=== PATIENT | male | born 1975 | race Caucasian/White ===

== ENCOUNTER 2023-05-14 07:51 | Outpatient (OUT) | payer OTHER, SELFPAY ==
--- NOTE | 2023-05-14 08:29 | PM.CN ---
Consult Note: HPI Data of Consult Patient: known to practice within the last 3 years Consult date: 05/14/23 Requesting Physician: FLORENCE WATKNIS NP Primary Care Provider: Shaikh Symone MD Consult Narrative Reason for consult: back pain Narrative: Patient is here for a f/u for chronic mid back pain. Pain is right thoracic area with no radiation, with muscle spasm. We discussed using heat and massage to area for comfort. Also discussed trying tumeric OTC. X-rays were ordered at last visit. Patient states he has not completed these d/t financial issues. He denies adverse SE of medications. No new sensorimotor sx or bowel or bladder issues. Denies any new injury. He stopped taking mobic for a month when rx wore out. We discussed indications for mobic and he would like refill. Medication therapy assists with patient being able to perform ADLs. cc:: CC: FLORENCE WATKINS NP Review of Systems ROS Status of ROS 10 or more systems reviewed and unremarkable except as noted in history and below Musculoskeletal Reports: back pain Exam Constitutional Common normals: no apparent distress, average body habitus, oriented x3, no limitations, healthy appearing, alert and well nourished General appearance: cooperative, comfortable and well developed Orientation/consciousness: Yes awake, Yes oriented to person, Yes oriented to place and Yes oriented to time HENMT Common normals: normocephalic and moist oral mucous membranes Respiratory Common normals: normal respiratory effort, no retractions and no use of accessory muscles Effort & inspection: able to speak in complete sentences and symmetric chest movement Back & Pelvis Thoracic spine/upper back: normal to inspection, pain with ROM, paraspinal muscle tenderness and paraspinal muscle spasm Other: positive facet loading with pain right thoracic area negative scott, negative SLR muscle strength 5/5 bilat LE with intact sensation Assessment and Plan Assessment and Plan (1) Lumbar spondylosis: (2) Spondylolysis, thoracic region: (3) Muscle spasm: Plan tumeric OTC resume mobic heat and massage to area
== END 2023-05-14 07:52 | disposition home or self-care (01) ==
PROVIDERS: PCP Internal Medicine; Visit Provider Nurse Practitioner
DX: M47.816 Spondylosis without myelopathy or radiculopathy, lumbar region (principal); M47.814 Spondylosis without myelopathy or radiculopathy, thoracic region; M62.838 Other muscle spasm
CPT/HCPCS: G0463

== ENCOUNTER 2023-08-19 07:53 | Outpatient (OUT) | payer OTHER, SELFPAY ==
--- NOTE | 2023-08-19 08:18 | PM.CN ---
Consult Note: HPI Data of Consult Patient: known to practice within the last 3 years Requesting Physician: Emma Albert NP Primary Care Provider: Shaikh Symone MD Consult Narrative Reason for consult: f/u Narrative: Cristi Honeycutt a 47 year old male presents for evaluation and management of chronic back pain. Today rating pain 2/10, reports it gets up to a 10/10 at times. Patient consistently takes his medications and admitted to taking his pain medication up to 4 or 5 times a day vs the prescribed TID. Patient reports pain is well controlled since last visit and he continues to be active with work. cc:: CC: Emma Albert NP Review of Systems ROS Status of ROS 10 or more systems reviewed and unremarkable except as noted in history and below Musculoskeletal Reports: back pain Meds Home Medications and Allergies Home Medications Medication Instructions Recorded Confirmed Type dextroamphetamine-amphetamine 10 10 mg PO DAILY 05/14/23 05/14/23 History mg tablet (Adderall) losartan 100 mg tablet 100 mg PO DAILY 05/14/23 05/14/23 History meloxicam 15 mg tablet 15 mg PO DAILY 05/14/23 05/14/23 History oxycodone-acetaminophen 5 mg-325 1 tab PO TID 05/14/23 05/14/23 History mg tablet (Percocet) tizanidine 4 mg tablet 8 mg PO BEDTIME PRN muscle spasm 05/14/23 05/14/23 History oxycodone-acetaminophen 5 mg-325 1 tab PO TID PRN pain #80 tabs 06/24/23 Rx mg tablet (Percocet) Allergies Allergy/AdvReac Type Severity Reaction Status Date / Time No Known Drug Allergies Allergy Verified 05/14/23 09:27 Exam Constitutional Documenting provider has reviewed patient's vital signs: yes Common normals: no apparent distress, oriented x3, healthy appearing, alert and well nourished General appearance: cooperative HENMT Common normals: normocephalic, hearing grossly normal bilaterally and moist oral mucous membranes Head and scalp: normocephalic Eye Common normals: PERRL Pupil: PERRL Neck & C-Spine Common normals: full ROM General: normal visual inspection Chest Common normals: inspection of chest normal Respiratory Common normals: normal respiratory effort, no retractions and no use of accessory muscles Back & Pelvis Thoracic spine/upper back: ROM limited and pain with ROM Lumbar spine/lower back: ROM limited, pain with ROM and straight leg raise negative bilaterally Sacroiliac joints: SI joints normal Extremity Common normals: normal to inspection and full ROM Neuro Common normals: oriented x3, CN's II-XII intact bilaterally, moves all extremities, no focal motor deficits, no sensory deficits noted, deep tendon reflexes 2+ bilaterally and gait normal Sensorium/orientation: alert Motor exam: strength 5/5 throughout and no movement abnormalities noted Psych Common normals: mental status grossly normal, thought process normal, cooperative, affect normal, speech normal and activity/motor behavior normal Speech: normal speech Thought process: normal thought process Results Additional Findings Additional findings: I have checked an [place] report on this patient today and there are no aberrancies noted in the prescribing history.?? A drug screen was completed and reviewed within the last year, and if there has not been a drug screen completed we ordered one today to monitor higher risk, state monitored pain medication use. As part of providing excellent, safe, comprehensive care, the following was completed at our patient's visit: 1. A medication reconciliation and review to ensure accurate knowledge of current/active medications, including asking our patients to inform us about any [id number] medications or herbal remedies/nutritional supplements/alternative remedies. 2. A review to specifically ensure our patients have had annual screening for: elevated body mass index (BMI), tobacco use, screening for depression, and screening for unhealthy alcohol use. When screening is concerning, patients are provided with education and the specific recommendation to discuss the concerning health issue and treatment options with their primary care provider. Assessment and Plan Assessment and Plan (1) Lumbar spondylosis: (2) Spondylolysis, thoracic region: (3) Muscle spasm: (4) Chronic, continuous use of opioids: Assessment and Plan: I have refilled the patient's opioid prescriptions at the above noted dose and schedule.? I feel these medications are improving the patient's quality of life and allow them to tolerate activities of daily living as well as participate in recreational activity.? The patient does not report intolerable side effects. The patient is NOT opioid naive and non-pharmacologic and non-opioid treatment has failed to significantly relieve the patient's pain and improve functionality. The patient has a diagnosis that is related to a somatic or visceral pain etiology. ? ?? I reviewed with the patient the potential risks and side effects with the use of? opioid medications including but not limited to respiratory depression,? sedation, and even . I verified the patient has access to naloxone should? these effects occur. I advised the patient to avoid the use of any other? sedation substances including alcohol, THC, and benzodiazepines while? taking opioid medications due to the risk of compounding side effects and? detrimental outcomes. I reviewed the [employer], pain treatment agreement, urine? drug screen, and opioid start talking forms. The patient was advised to let? their family know they had Naloxone in case they would need to administer? the medication.? ?? A drug screen was completed within the last year, and no aberrancies were noted regarding their use of controlled substances. The patient understands they are subject to the terms and conditions of the pain contract that they have signed. ? ?? I have checked an [place] report on this patient today and there are no aberrancies noted in the prescribing history.? Plan continue conservative care continue HEP cannot afford PT, xrays, or injection therapy doing well on current medication regimen without side effects educated on narcan and prescribed educated on max daily dose of percocet is TID, not to be used more than TID f/u 3 months
== END 2023-08-19 07:54 | disposition home or self-care (01) ==
PROVIDERS: PCP Internal Medicine; Visit Provider Nurse Practitioner
DX: M47.816 Spondylosis without myelopathy or radiculopathy, lumbar region (principal); M43.04 Spondylolysis, thoracic region; M62.838 Other muscle spasm; Z79.891 Long term (current) use of opiate analgesic
CPT/HCPCS: G0463

== ENCOUNTER 2023-11-18 08:27 | Outpatient (OUT) | payer OTHER, SELFPAY ==
--- OUTSIDE RECORDS SUMMARY | 2023-11-18 08:29 | XMS_ITS | CCD ---
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 Name Role Phone PHYSICIAN, DEFAULT Unavailable Unavailable PHYSICIAN, DEFAULT Unavailable Unavailable EDEN SOLORIO Unavailable Unavailable EDEN SOLORIO Unavailable Unavailable SELF, REFERRED Unavailable Unavailable SELF, REFERRED Unavailable Unavailable CT Unavailable Unavailable EDEN SOLORIO Unavailable Unavailable CT Unavailable Unavailable JENNY COLUNGA Unavailable Unavailable FAWWAD, HAZEL H Primary Care Unavailable FAWWAD, HAZEL H Consulting Unavailable FAWWAD, HAZEL H Attending Unavailable FAWWAD, HAZEL H Admitting Unavailable LAKSHMIPATHY ., JORIATH Attending Sharron vailable LAKSHMIPATHY ., NARENDDARBYATH Admitting Sharron vailable FAWWAD, HAZEL H Primary Care Unavailable LAKSHMIPATHY ., NARENDSASHA Consulting Sharron vailable STEINER ., DR ROSAS Pinto Admitting Unavailable FAWWAD, HAZEL H Primary Care Unavailable MOLINA ., STAR Consulting Unavailable STEINER ., DR ROSAS Pinto Attending Unavailable STEINER ., DR ROSAS Pinto Admitting Unavailable FAWWAD, HAZEL H Primary Care Unavailable MOLINA ., STAR Consulting Unavailable STEINER ., DR ROSAS Pinto Attending Unavailable FAWWAD, HAZEL H Primary Care Unavailable STEINER ., DR ROSAS Pinto Admitting Unavailable MOLINA ., STAR Consulting Unavailable STEINER ., DR ROSAS Pinto Attending Unavailable Problems Active Problems Problem Classification Problem Date Documented Date Episodic/Chronic Essential hypertension (5 sources) Essential (primary) hypertension; Translations: [ESSENTIAL (PRIMARY) HYPERTENSION] Onset: 07-01-2018 Chronic Other nervous system disorders (4 sources) Other chronic pain; Translations: [OTHER CHRONIC PAIN] Onset: 01-22-2023 Chronic Other nervous system disorders (4 sources) Polyneuropathy, unspecified; Translations: [POLYNEUROPATHY UNSPECIFIED] Onset: 04-03-2022 Chronic Residual codes; unclassified (1 source) Sleep apnea, unspecified; Translations: [SLEEP APNEA, UNSPECIFIED] Onset: 07-01-2018 Spondylosis; intervertebral disc disorders; other back problems (7 sources) Other intervertebral disc degeneration, lumbar region; Translations: [Spondylosis without myelopathy or radiculopathy, lumbar region] Onset: 07-16-2022 Chronic Substance-related disorders (1 source) Nicotine dependence, cigarettes, uncomplicated; Translations: [NICOTINE DEPENDENCE, CIGARETTES, UNCOMPLICATED] Onset: 07-01-2018 Chronic Unclassified (2 sources) Unknown / UNK(Unknown) Onset: 07-01-2018 Unclassified (4 sources) LOW BACK PAIN, UNSPECIFIED; Translations: [LOW BACK PAIN, UNSPECIFIED] Onset: 10-30-2022 Past or Other Problems Problem Classification Problem Date Documented Da te Episodic/Chronic Gastrointestinal hemorrhage (3 sources) Hemorrhage of anus and rectum; Translations: [HEMORRHAGE OF ANUS AND RECTUM] Onset: 07-01-2018 Episodic Hemorrhoids (2 sources) Other hemorrhoids; Translations: [Residual hemorrhoidal skin tags] Onset: 07-01-2018 Episodic Other screening for suspected conditions (not mental disorders or infectious disease) (2 sources) Encounter for screening for diabetes mellitus; Translations: [Encounter for screening for lipoid disorders] Onset: 02-24-2022 Episodic Spondylosis; intervertebral disc disorders; other back problems (1 source) Intervertebral disc disorders with radiculopathy, lumbar region; Translations: [IV DISC D/O W/RADICULOPATHY LUMB] Onset: 07-18-2022 Episodic Unclassified (1 source) LOW BACK PAIN, UNSPECIFIED; Translations: [LOW BACK PAIN, UNSPECIFIED] Onset: 10-24-2022 Results Test Name Value Interpretation Reference Range Facility CBC AUTO DIFFon 02-20-2022 BASO # 0.0 103/ul Normal 0.0-0.1 [facility] Comment on above: Performed By: #### C BC #### [facility] [address] [address] [address] Angel Harding Basophils/100 WBC (Bld) 0.7 % Normal 0.2-2.0 [facility] Comment on above: Performed By: #### C BC #### [facility] [address] [place] [address] Dr. Angel Harding EO # 0.2 103/ul Normal 0.0-0.7 [facility] Comment on above: Performed By: #### C BC #### [facility] [address] [place] [address] Dr. Angel Harding Eosinophils/100 WBC (Bld) 2.6 % Normal 0.9-7.0 [facility] Comment on above: Performed By: #### C BC #### [facility] [address] [place] [address] Dr. Angel Harding Erythrocyte distribution width (RBC) [Ratio] 12.4 % Normal 11.0-15.0 [facility] Comment on above: Performed By: #### C BC #### [facility] [address] [place] [address] Dr. Angel Harding Hematocrit (Bld) [Volume fraction] 42.2 % Normal 42.0-54.0 [facility] Comment on above: Performed By: #### C BC #### [facility] [address] [place] [address] Dr. Angel Harding Hemoglobin (Bld) [Mass/Vol] 14.1 g/dL Normal 14.0-18.0 [facility] Comment on above: Performed By: #### C BC #### [facility] [address] [place] [address] Dr. Angel Harding IG # 0.02 10e3/ul Normal 0.00-0.03 [facility] Comment on above: Performed By: #### C BC #### [facility] [address] [place] [address] Dr. Angel Harding IG % 0.3 % Normal 0.0-0.5 [facility] Comment on above: Performed By: #### C BC #### [facility] [address] [place] [address] Dr. Angel Harding LYMPH # 2.4 103/ul Normal 1.2-3.8 [facility] Comment on above: Performed By: #### C BC #### [facility] [address] [place] [address] Dr. Angel Harding Lymphocytes/100 WBC (Bld) 39.4 % Normal 20.5-60.0 [facility] Comment on above: Performed By: #### C BC #### [facility] [address] [place] [address] Dr. Angel Harding MANUAL DIFF REQ NO Normal [facility] Comment on above: Performed By: #### C BC #### [facility] [address] [place] [address] Dr. Angel Harding MCH (RBC) [Entitic mass] 31.4 pg Normal 25.9-34.0 [facility] Comment on above: Performed By: #### C BC #### [facility] [address] [place] [address] Dr. Angel Harding MCHC (RBC) [Mass/Vol] 33.4 g/dL Normal 29.9-35.2 [facility] Comment on above: Performed By: #### C BC #### [facility] [address] [place] [address] Dr. Angel Harding MCV (RBC) [Entitic vol] 94.0 fL Normal 80.0-94.0 [facility] Comment on above: Performed By: #### C BC #### [facility] [address] [place] [address] Dr. Angel Harding MONO # 0.5 103/ul Normal 0.3-0.8 [facility] Comment on above: Performed By: #### C BC #### [facility] [address] [place] [address] Dr. Angel Harding Monocytes/100 WBC (Bld) 7.5 % Normal 1.7-12.0 [facility] Comment on above: Performed By: #### C BC #### [facility] [address] [place] [address] Dr. Angel Harding NEUT # 3.0 103/ul Normal 1.4-6.5 [facility] Comment on above: Performed By: #### C BC #### [facility] [address] [place] [address] Dr. Angel Harding Neutrophils/100 WBC (Bld) 49.5 % Normal 43.0-75.0 [facility] Comment on above: Performed By: #### C BC #### [facility] [address] [place] [address] Dr. Angel Harding Platelet mean volume (Bld) [Entitic vol] 9.7 fL Normal 9.5-13.5 [facility] Comment on above: Performed By: #### C BC #### [facility] [address] [address] [address] Angel Harding PLT 275 103/ul Normal 150-450 [facility] Comment on above: Performed By: #### C BC #### [facility] [address] [place] [address] Dr. Angel Harding RBC 4.49 106/ul Critically low 4.70-6.10 [facility] Comment on above: Performed By: #### C BC #### [facility] [address] [place] [address] Dr. Angel Harding WBC 6.1 103/ul Normal 4.0-11.0 [facility] Comment on above: Performed By: #### C BC #### [facility] [address] [place] [address] Dr. Angel Harding GLYCOHEMOGLOBIN A1Con 2021 ADA RECOMMENDATION SEE BELOW Normal [facility] Comment on above: Result Comment: ADA RECOMMENDED LIMIT 4.0 - 6.0 ADA THERAPEUTIC TARGET < 7.0 ACTION SUGGESTED > 7.0 Performed By: #### A 1C #### [facility] [address] [place] [address] Dr. Angel Harding Glucose [Mass/Vol] 117 mg/dL Normal [facility] Comment on above: Performed By: #### A 1C #### [facility] [address] [place] [address] Dr. Angel Harding HbA1c (Bld) [Mass fraction] 5.7 % Normal 4.5-6.2 [facility] Comment on above: Performed By: #### A 1C #### [facility] [address] [place] [address] Dr. Angel Harding LIPID PROFILEon 02-20-2022 CHOL-HDL RATIO NORM SEE BELOW Normal [facility] Comment on above: Result Comment: 3.3 - 4.4 LOW RISK 4.4 - 7.1 AVERAGE RISK 7.1 - 11.0 MODERATE RISK >11.0 HIGH RISK Performed By: #### C MP, LIPID #### [facility] [address] [address] [address] Angel Harding Cholesterol [Mass/Vol] 217 mg/dL Critically high <=200 [facility] Comment on above: Performed By: #### C MP, LIPID #### [facility] [address] [address] [address] Angel Harding Cholesterol in HDL [Mass/Vol] 47 mg/dL Normal 40-60 [facility] Comment on above: Performed By: #### C MP, LIPID #### [facility] [address] [address] [address] Angel Harding Cholesterol in LDL [Mass/Vol] 125.2 mg/dL Normal [facility] Comment on above: Performed By: #### C MP, LIPID #### [facility] [address] [address] [address] Angel Harding Cholesterol.total/Ch olesterol in HDL [Mass ratio] 4.6 {ratio} Normal [facility] Comment on above: Performed By: #### C MP, LIPID #### [facility] [address] [address] [address] Angel Harding HDL NORMAL > or = 60 mg/dl - LO W CARDIOVASCULAR RISK <40 mg/dl - HIGH CARDIOVASCULAR RISK Normal [facility] Comment on above: Performed By: #### C MP, LIPID #### [facility] [address] [address] [address] Angel Harding LDL CALC NORMAL SEE BELOW Normal [facility] Comment on above: Result Comment: <100 mg/dl OPTIMAL 100 - 129 mg/dl NEAR OR ABOVE OPTIMAL 130 - 159 mg/dl BORDERLINE HIGH 160 - 189 mg/dl HIGH >190 mg/dl VERY HIGH Performed By: #### C MP, LIPID #### [facility] [address] [place] [address] Dr. Angel Harding Triglyceride [Mass/Vol] 224 mg/dL Critically high <=150 [facility] Comment on above: Performed By: #### C MP, LIPID #### [facility] [address] [place] [address] Dr. Angel Harding VLDL CALC 44.8 mg/dL Normal [facility] Comment on above: Performed By: #### C MP, LIPID #### [facility] [address] [place] [address] Dr. Angel Harding PROF 14(COMP METB)on 022 Albumin [Mass/Vol] 3.8 g/dL Normal 3.4-5.0 [facility] Comment on above: Performed By: #### C MP, LIPID #### [facility] [address] [place] [address] Dr. Angel Harding Albumin/Globulin [Mass ratio] 1.0 {ratio} Normal [facility] Comment on above: Performed By: #### C MP, LIPID #### [facility] [address] [place] [address] Dr. Angel Harding ALP [Catalytic activity/Vol] 91 U/L Normal 46-116 [facility] Comment on above: Performed By: #### C MP, LIPID #### [facility] [address] [place] [address] Dr. Angel Harding ALT [Catalytic activity/Vol] 66 U/L Critically high 16-63 [facility] Comment on above: Performed By: #### C MP, LIPID #### [facility] [address] [place] [address] Dr. Angel Harding Anion gap [Moles/Vol] 13.0 mmol/L Normal [facility] Comment on above: Performed By: #### C MP, LIPID #### [facility] [address] [place] [address] Dr. Angel Harding AST [Catalytic activity/Vol] 29 U/L Normal 15-37 [facility] Comment on above: Performed By: #### C MP, LIPID #### [facility] [address] [place], [place] [id number] Dr. Angel Harding Bilirubin [Mass/Vol] 0.3 mg/dL Normal 0.2-1.0 [facility] Comment on above: Performed By: #### C MP, LIPID #### [facility] [address] [place] [address] Dr. Angel Harding Calcium [Mass/Vol] 8.6 mg/dL Normal 8.5-10.1 [facility] Comment on above: Performed By: #### C MP, LIPID #### [facility] [address] [place] [address] Dr. Angel Harding Chloride [Moles/Vol] 106 mmol/L Normal 98-107 [facility] Comment on above: Performed By: #### C MP, LIPID #### [facility] [address] [place] [address] Dr. Angel Harding CO2 [Moles/Vol] 25.7 mmol/L Normal 21.0-32.0 [facility] Comment on above: Performed By: #### C MP, LIPID #### [facility] [address] [place] [address] Dr. Angel Harding Creatinine [Mass/Vol] 0.83 mg/dL Normal 0.70-1.30 [facility] Comment on above: Performed By: #### C MP, LIPID #### [facility] [address] [place] [address] Dr. Angel Harding EGFR-AF GRENADIAN >60 Normal >=60 [facility] Comment on above: Performed By: #### C MP, LIPID #### [facility] [address] [place] [address] Dr. Angel Harding EGFR-NON AF GRENADIAN >60 Normal >=60 [facility] Comment on above: Performed By: #### C MP, LIPID #### [facility] [address] [place] [address] Dr. Angel Harding Globulin (S) [Mass/Vol] 3.7 g/dL Normal [facility] Comment on above: Performed By: #### C MP, LIPID #### [facility] [address] [place] [address] Dr. Angel Harding Glucose [Mass/Vol] 114 mg/dL Critically high 74-106 [facility] Comment on above: Performed By: #### C MP, LIPID #### [facility] [address] [address] [address] Angel Harding Potassium [Moles/Vol] 4.7 mmol/L Normal 3.5-5.1 [facility] Comment on above: Performed By: #### C MP, LIPID #### [facility] [address] [address] [address] Angel Harding Protein [Mass/Vol] 7.5 g/dL Normal 6.1-8.2 [facility] Comment on above: Performed By: #### C MP, LIPID #### [facility] [address] [place] [address] Dr. Angel Harding Sodium [Moles/Vol] 140 mmol/L Normal 136-145 [facility] Comment on above: Performed By: #### C MP, LIPID #### [facility] [address] [address] [address] Angel Harding Urea nitrogen [Mass/Vol] 12.0 mg/dL Normal 7.0-18.0 [facility] Comment on above: Performed By: #### C MP, LIPID #### [facility] [address] [place] [address] Dr. Angel Harding Urea nitrogen/Creatinine [Mass ratio] 14.5 mg/mg Normal [facility] Comment on above: Performed By: #### C MP, LIPID #### [facility] [address] [place] [address] Dr. Angel Harding Operative Reporton 8 Operative Report MR#: [id number] [facility] Pt. Name: Cristi [facility] #: [id number] Discharge Date: Birthdate: 1975 OPERATIVE REPORTDATE OF SURGERY: 07/01/2018SURGEON: DEJUAN ArtisREOPERATIVE DIAGNOSIS: Rectal bleeding.POSTOPERATIVE DIAGNOSIS: Right posterior mixed internal and externalhemorrhoids.CT OCEDURES:1. Excision of mixed right posterior internal and external hemorrhoids.2. Exparel was used to do a perianal block.ANESTHESIA: MAC.COMPLICATIONS: None.INDICATION FOR PROCEDURE: This is a 42-year-old male presented [facility] with rectal pain and bleeding. Decision was made to bring him tothe operating room for exam under anesthesia.DESCRIPTION OF PROCEDURE: Preoperatively, consent was obtained. Thepatient was brought to the operating room, placed in prone ernestine-knifeposition. MAC anesthesia was induced. On induction of anesthesia and examunder anesthesia, the patient noted to have a right posterior externalhemorrhoid that had some abnormal tissue at the dentate line. Decision wasmade to excise both the internal and external component. Exparel was usedto do a perianal block. The right posterior hemorrhoidal internal externalcomponent was grasped with a Sonam device. A 2-0 chromic was then used toligate the pedicle. The electrocautery LigaSure device was used to removethe hemorrhoid and the chromic was used to run and close the mucosa in alocking fashion. The patient tolerated the procedure well. An Exparelperianal block was done at the end. The patient was taken topostanesthesia care unit in stable condition.Electronical ly Signed by:Eden Solorio MD 07/01/2018 12:20 P Real Solorio, MDDate Dict: 07/01/2018/09:02 Shannon/Eden Solorio MDDate Trans: 07/01/2018 11:00 [id number] Normal [facility] POC GLUCOSE LABon 07-01-2018 Glucose mass conc 101 mg/dL High 70-[address] [facility] Comment on above: Performed By: #### [id number] ####[facility], [place] [id number] [place] [address] Encounters Encounter Date Encounter Type Care Provider Facility Start: 01-22-2023 End: 01-23-2023 ambulatory CARMELLA RODRIGUEZ . Facility: Start: 10-24-2022 End: 10-25-[address] ROSAS STEINER . Facility: Start: 07-16-2022 End: 07-17-[address] ROSAS STEINER . Facility:[facility] Start: 04-03-2022 End: 04-04-2022 ambulatory SHAIKH Asuncion OLIVEIRA Facility:[facility] Start: 02-20-2022 End: 02-21-2022 ambulatory Asuncion ROXANNE Facility: Start: 07-01-2018 End: 07-02-2018 Patient encounter procedure EDEN SOLORIO Facility:[facility] Start: 06-08-2018 End: 06-09-2018 Patient encounter procedure DEFAULT PHYSICIAN Facility:[facility] Procedures Date Procedure Procedure Detail Performing Clinician Start: 07-01-2018 ANESTH ANORECTAL SURGERY JENNY COLUNGA Start: 07-01-2018 REMOVE BY LIGAT INT HEM GRP EDEN SOLORIO Payers Date Payer Category Payer Unknown [id number] [id number] 1975 Unknown [id number] [id number] 1975 Unknown [id number] 2.16.84 [id number] 1975 Unknown [id number] 2.16.84 [id number] 1975 Unknown [id number] 2.16.84 [id number] 1975 Unknown [id number] 2.16.84 [id number] 1975 Unknown [id number] 2.16.84 [id number] 1958 Unknown [id number] Unknown Consultation note 01-22-2023 Note Date & Type Note Facility 01-22-2023 Note CONSULTATION CONSULTATION DATE: 01/22/2023 TO: Dr. Oliveira CHIEF COMPLAINT: Includes lower back pain occurring bilaterally. HISTORY: He rates this 5-7/10 pain, sharp in character, increased with activities such standing, walking and performing transitioning maneuvers. He feels most comfortable in a semi-recumbent position. Denies any change in bowel and bladder habits or new sensorimotor changes in the lower extremities. MEDICATIONS: Current medications include Percocet 5 mg t.i.d., Mobic 15 mg daily p.r.n., tizanidine 4 mg daily which he uses frequently, stating that it makes him somewhat sleeping, and he uses maybe twice a month. EXAM: Notable for patient being inconsistent when performing various maneuvers in terms of location of his pain symptoms on provocative testing. For example, when performing lumbar facet joint loading maneuvers, his area of pain seemed to migrate. Similarly, when performing Adrián's test and FABERs sign, areas of pain would migrate from one location to another location, making for a very inconsistent response to our examination. Nevertheless, I could not appreciate any radiculopathy or myelopathy involving his lower extremities on today's visit. I could not appreciate any myofascial spasm involving his lumbar spine on today's visit. He did appear to have some pain with lumbar facet loading maneuvers occurring bilaterally. Again, the location of his pain did seem to migrate. IMPRESSION: The patient has chronic pain, unclear etiology, possibly related to lumbosacral spondylosis. RECOMMENDATIONS: I have recommended lumbosacral spine films, PA and lateral views. Will obtain a urine toxicology screen, and will have him return to the office in approximately four weeks' time or sooner if needed. There was significant strain between myself and the patient during the examination process. We will discuss this with the team, to determine if we will continue to see this patient secondary to the strained patient/physician relationship. [facility] Consultation note 10-24-2022 Note Date & Type Note Facility 10-24-2022 Note CONSULTATION CONSULTATION DATE: 10/24/2022 HISTORY OF PRESENT ILLNESS: This is a 46-year-old male. 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 Historically, the patient has declined procedures that have been offered and prefers to be medically maintained. His medications include Mobic 15 mg daily, Percocet 5/325 t.i.d., tizanidine 4 mg p.r.n. and Adderall. 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 His chronic pain does not interfere with ADLs, as long as he is compliant with his medications. 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 This morning, he states his pain is 8/10, although he is sitting calmly in the room. He describes the pain as sharp intermittently with dull aches. He denies any new pain pattern or vasomotor changes. Patient's REVIEW OF SYSTEMS / PAST MEDICAL HISTORY / ALLERGIES and IMAGES have been reviewed and noted in the chart. PHYSICAL EXAM: VITAL SIGNS: Blood pressure 160/84, heart rate is 85. He is 6'6 , weighs 113 kg. GENERAL IMPRESSION: Pleasant, appropriate, in no acute distress. BACK EXAM: Range of motion is functional in lateral rotation and flexion/extension. Paravertebral muscles are non-spasmodic. Mild spinal axial pain upon compression of the lower lumbar facets bilaterally; L3, L4, L5. Kris's point non-tender bilaterally. Negative FABERs and compression test. MUSCULOSKELETAL: Motor is 5/5 bilaterally. No vasomotor weakness noted. NEUROLOGICAL: Radicular sensory is intact. Negative polyneuropathy. DIAGNOSIS: Chronic lower back pain, lumbar degenerative disc disease, lumbar spondylosis. PLAN: Will continue to maintain his medications: Percocet 5/325 t.i.d. and tizanidine 4 mg p.r.n. Patient is well aware of home supportive measures and I encouraged him to continue his vitamins. Will see him in three months' time, unless otherwise indicated. [facility] Consultation note 07-16-2022 Note Date & Type Note Facility 07-16-2022 Note CONSULTATION CONSULTATION DATE: 07/16/2022 HISTORY OF PRESENT ILLNESS: This is a 46-year-old gentleman returning to the clinic for a three month follow up. He was last seen on 04/03/2022 and, at that time, his diclofenac was discontinued due to indigestion. He was started on Mobic 15 mg daily. The patient is tolerating that medication very well and gaining pain relief at the same time. Other medication patient is on is Percocet 5/325 t.i.d., Adderall 7.5 mg daily and tizanidine 8 mg p.r.n. The patient has had back surgery in the past and remains very hesitant to do any procedural interventions. He feels his morning and activity routine, including his medications are satisfactory to his pain management right now. He has both thoracic and lumbar pain, but does not describe any precise aggravating factors. He said there is no rhyme or reason for the onset of sharp episodes. At rest, his pain is 4/10. With activity, it is 7/10. He describes the pain as crampy, dull; sharp, shooting pains at times. He denies any new vasomotor weakness or radicular pain pattern. Patient's REVIEW OF SYSTEMS / PAST MEDICAL HISTORY / ALLERGIES and IMAGES have been reviewed and they are noted on the chart. PHYSICAL EXAM: VITAL SIGNS: Blood pressure 160/87, heart rate is 59. Temperature is 97.7. He is 6'6 and weighs 115 kg. GENERAL IMPRESSION: Pleasant, appropriate, no acute distress. FOCUSED EXAM - BACK: Range of motion is functional in lateral rotation and flexion/extension. Paravertebral muscles are supple. Minimal spinal axial pain noted to bilateral L3, L4, L5 to compression. Kris's point is non-tender bilaterally. MUSCULOSKELETAL: Motor is intact, 5/5 bilaterally. No vasomotor weakness noted. Muscle tone is good. Patient walks with a stable gait. NEUROLOGICAL: Patient is cognitively intact. Mild hypoesthesia noted along S1 to left lower extremity along the posterior aspect that does not reach the knee. Radicular sensory is intact. DIAGNOSIS: Lumbar spondylosis, lumbar degenerative disc and thoracic degenerative disc disease and lumbar neuritis. PLAN: We will continue to medically manage the patient only, per the patient's request. A refill for his Percocet 5/325 t.i.d. and Mobic 15 mg daily will be sent to his pharmacy. Education was given regarding vitamin supplements, stretching, heat use and other modalities of self care. We will see the patient in three months' time, unless otherwise indicated. Patient is in agreement to this. [facility] Consultation note 04-03-2022 Note Date & Type Note Facility 04-03-2022 Note CONSULTATION CONSULTATION DATE: 04/03/2022 HISTORY OF PRESENT ILLNESS: This is a 46-year-old gentleman, returned to the clinic for a three month follow up for his chronic lower back pain and bilateral knee pain. He was last seen on 01/02/2022 which, at that time, he was to decrease his tizanidine due to sedentary effects, and he was placed on diclofenac daily. Patient had to stop taking the diclofenac as he was having indigestion problems with that. He reports his pain as a 5-6/10 today, particularly in his mid upper back. 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 He does have patchy hypoesthesia to bilateral upper extremities. Twisting, turning, pulling, lifting and carrying heavy objects aggravate his pain. He does take Percocet 5/325 t.i.d., Advil and tizanidine. The patient says he does not feel his Percocet is keeping up with his pain. Historically, the patient has not moved forward with procedures primarily due to cost. Patient's REVIEW OF SYSTEMS / PAST MEDICAL HISTORY / ALLERGIES and IMAGES have been reviewed and they are noted on the chart. PHYSICAL EXAM: VITAL SIGNS: Blood pressure 158/87, heart rate is 77. Temperature is 97.3. He is 6'6 , weighs 120 kg. FOCUSED EXAM - BACK: Range of motion is within functional limits in lateral rotation and flexion/extension. Reproduction of spinal axial pain noted to direct compression along the thoracic facets of T3, T4 and T5, T6. Bilateral paravertebral muscles are non-spasmodic. Kris's point is non-tender bilaterally. MUSCULOSKELETAL: Muscle tone is good. Patient ambulates without difficulty, with a steady gait. NEUROLOGICALLY: Patchy hypoesthesia noted along C7-C8 to bilateral upper extremities. IMPRESSION: Polyneuropathy, thoracic degenerative disc, lumbar degenerative disc and lumbar spondylosis. PLAN: We will replace the diclofenac with Mobic 15 mg p.o. daily. I did suggest him to highly consider the MBB procedures and subsequent rhizotomy for management of his chronic back pain. His Percocet dose and frequency will be unchanged at this time. I did discuss with him decreasing the amount of alcohol he takes while he takes his narcotic medication. Pamphlets were given with information regarding medial branch blocks and a video for him to watch. We will see him in three months' time unless patient would like to move forward with a procedure. Patient agrees with plan of care and all questions answered. [facility] Signed and Approved by: STAR MOLINA . 04/10/2022 16:02:00 [facility] Summary Purpose Family History No Family History Records FoundNo Family History Records Found Advance Directives No Advanced Directives Records FoundNo Advanced Directives Records Found Additional Source Comments (unrecognized sect ion and content) No Status Records FoundNo Status Records Found INFORMATION SOURCE (unrecogn ized section and content) DATE CREATED AUTHOR 10/21/2018 [facility] DATE CREATED AUTHOR AUTHOR'S ROSEANNA ATION 01/31/2023 [facility] FOR RECORDS PERTAINING TO PATIENTS WHO ARE OR HAVE BEEN ENROLLED IN A CHEMICAL DEPENDENCY/SUBSTANCEABUSE PROGRAM, SOME INFORMATION MAY BE OMITTED. This clinical summary was aggregated from multiple sources. Caution should be exercised in using it in the provision of clinical care. This summary normalizes information from multiple sources, and as a consequence, information in this document may materially change the coding, format and clinical context of patient data. In addition, data may be omitted in some cases. CLINICAL DECISIONS SHOULD BE BASED ON THE PRIMARY CLINICAL RECORDS. [facility] provides no warranty or guarantee of the accuracy or completeness of information in this document.
--- NOTE | 2023-11-18 08:51 | P.CN_ITS ---
Consult Note: HPI Data of Consult Patient: known to practice within the last 3 years Requesting Physician: Emma Albert NP Primary Care Provider: Shaikh Symone MD Consult Narrative Reason for consult: f/u Narrative: Cristi Honeycutt a 47 year old male presents for evaluation and management of chronic back pain. Today rating pain 2/10, reports it gets up to a 10/10 at times. Patient reports pain is well controlled since last visit and he continues to be active with work. Pain radiating to knees with weakness burning numbing and cramping, increased with all activity and long periods of standing. Patient continues to report he cannot afford imaging, PT, injection therapy. Patient finds no improvement with HEP and physical labor at home. Patient continues to report functional improvement and benefit from current medication regimen. Reports percocet use TID PRN but does require TID daily. Denies side effects cc:: CC: Emma Albert NP Review of Systems ROS Status of ROS 10 or more systems reviewed and unremark able except as noted in history and below Musculoskeletal Reports: back pain, neck pain, extremity pain and joint pain Meds Home Medications and Allergies Home Medications Medication Instructions Recorded Confirmed Type dextroamphetamine-amphetamine 10 10 mg PO DAILY 05/14/23 05/14/23 History mg tablet (Adderall) losartan 100 mg tablet 100 mg PO DAILY 05/14/23 05/14/23 History meloxicam 15 mg tablet 15 mg PO DAILY 05/14/23 05/14/23 History oxycodone-acetaminophen 5 mg-325 1 tab PO TID 05/14/23 05/14/23 History mg tablet (Percocet) tizanidine 4 mg tablet 8 mg PO BEDTIME PRN muscle spasm 05/14/23 05/14/23 History oxycodone-acetaminophen 5 mg-325 1 tab PO TID PRN pain #80 tabs 06/24/23 Rx mg tablet (Percocet) naloxone 4 mg/actuation nasal 1 spray intranasal Q3M PRN opioid 08/19/23 Rx spray (Narcan) overdose #2 ea oxycodone-acetaminophen 5 mg-325 1 tab PO TID PRN pain #80 tabs 08/19/23 Rx mg tablet (Percocet) meloxicam 15 mg tablet 15 mg PO DAILY #30 tabs 09/22/23 Rx oxycodone-acetaminophen 5 mg-325 1 tab PO TID PRN pain #80 tabs 09/22/23 Rx mg tablet (Percocet) oxycodone-acetaminophen 5 mg-325 1 tab PO TID PRN pain #80 tabs 10/27/23 Rx mg tablet (Percocet) Allergies Allergy/AdvReac Type Severity Reaction Status Date / Time No Known Drug Allergies Allergy Verified 05/14/23 09:27 Exam Constitutional Documenting provider has reviewed patient's vital signs: yes Common normals: no apparent distress, oriented x3, healthy appearing, alert and well nourished General appearance: cooperative HENMT Common normals: normocephalic, hearing grossly normal bilaterally and moist oral mucous membranes Head and scalp: normocephalic Eye Common normals: PERRL Pupil: PERRL Neck & C-Spine Common normals: full ROM General: normal visual inspection Chest Common normals: inspection of chest normal Respiratory Common normals: normal respiratory effort, no retractions and no use of accessory muscles Back & Pelvis Thoracic spine/upper back: ROM limited and pain with ROM Lumbar spine/lower back: ROM limited, pain with ROM and straight leg raise negative bilaterally Sacroiliac joints: SI joints normal Other: palpable muscle spasms throughout back positive facet loading lumbar spine worse on left than right Extremity Common normals: normal to inspection and full ROM Neuro Common normals: oriented x3, CN's II-XII intact bilaterally, moves all extremities, no focal motor deficits, no sensory deficits noted, deep tendon reflexes 2+ bilaterally and gait normal Sensorium/orientation: alert Motor exam: strength 5/5 throughout and no movement abnormalities noted Psych Common normals: mental status grossly normal, thought process normal, cooperative, affect normal, speech normal and activity/motor behavior normal Speech: normal speech Thought process: normal thought process Results Additional Findings Additional findings: I have checked an [place]AR[place] report on this patient today and there are no aberrancies noted in the prescribing history.?? A drug screen was completed and reviewed within the last year, and if there has not been a drug screen completed we ordered one today to monitor higher risk, state monitored pain medication use. As part of providing excellent, safe, comprehensive care, the following was comp leted at our patient's visit: 1. A medication reconciliation and review to ensure accurate knowledge of current/active medications, including asking our patients to inform us about any [id number] medications or herbal remedies/nutritional supplements/alternative remedies. 2. A review to specifically ensure our patients have had annual screening for: elevated body mass index (BMI), tobacco use, screening for depression, and screening for unhealthy alcohol use. When screening is concerning, patients are provided with education and the specific recommendation to discuss the concerning health issue and treatment options with their primary care provider. Assessment and Plan Assessment and Plan (1) Lumbar spondylosis: (2) Spondylolysis, thoracic region: (3) Lumbar stenosis with neurogenic claudication: (4) Muscle spasm: (5) Chronic, continuous use of opioids: Assessment and Plan: I have refilled the patient's opioid prescriptions at the above noted dose and schedule.? I feel these medications are improving the patient's quality of life and allow them to tolerate activities of daily living as well as participate in recreational activity.? The patient does not report intolerable side effects. The patient is NOT opioid naive and non-pharmacologic and non-opioid treatment has failed to significantly relieve the patient's pain and improve functionality. The patient has a diagnosis that is related to a somatic or visceral pain etiology. ? ?? I reviewed with the patient the potential risks and side effects with the use of? opioid medications including but not limited to respiratory depression,? sedation, and even . I verified the patient has access to naloxone should? these effects occur. I advised the patient to avoid the use of any other? sedation substances including alcohol, THC, and benzodiazepines while? taking opioid medications due to the risk of compounding side effects and? detrimental outcomes. I reviewed the ENGINEERING TEST MECHANIC, pain treatment agreement, urine? drug screen, and opioid start talking forms. The patient was advised to let? their family know they had Naloxone in case they would need to administer? the medication.? ?? A drug screen was completed within the last year, and no aberrancies were noted regarding their use of controlled substances. The patient understands they are subject to the terms and conditions of the pain contract that they have signed. ? ?? I have checked an OARRS report on this patient today and there are no a berrancies noted in the prescribing history.? Plan continue percocet 5-325mg TID PRN moderate to severe pain update UDS today continue conservative care continue HEP cannot afford PT, xrays, or injection therapy doing well on current medication regimen without side effects educated on narcan and prescribed f/u 3 months
== END 2023-11-18 08:28 | disposition home or self-care (01) ==
LOC: PM 08:27
PROVIDERS: PCP Internal Medicine; Visit Provider Nurse Practitioner
DX: M47.816 Spondylosis without myelopathy or radiculopathy, lumbar region (principal); M48.062 Spinal stenosis, lumbar region with neurogenic claudication; M47.814 Spondylosis without myelopathy or radiculopathy, thoracic region; M62.838 Other muscle spasm; Z79.891 Long term (current) use of opiate analgesic
CPT/HCPCS: G0463

== ENCOUNTER 2024-02-25 07:39 | Outpatient (OUT) | payer OTHER, SELFPAY ==
--- OUTSIDE RECORDS SUMMARY | 2024-02-25 07:42 | XMS_ITS | CCD ---
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 Name Role Phone PHYSICIAN, DEFAULT Unavailable Unavailable PHYSICIAN, DEFAULT Unavailable Unavailable EDEN SOLORIO Unavailable Unavailable EDEN SOLORIO Unavailable Unavailable SELF, REFERRED Unavailable Unavailable SELF, REFERRED Unavailable Unavailable [place] Unavailable Unavailable EDEN SOLORIO Unavailable Unavailable AK Unavailable Unavailable JENNY COLUNGA Unavailable Unavailable FAWWAD, HAZEL H Primary Care Unavailable FAWHID, HAZEL H Consulting Unavailable FAWHID, HAZEL H Attending Unavailable [facility] Admitting Unavailable LAKSHMIPATHY ., NARJENNIFERATH Attending Sharron vailable LAKSHMIPATHY ., NARENDRANATH Admitting Sharron vailable FAWWAD, HAZEL H Primary Care Unavailable LAKSHMIPATHY ., NARENDDARBYATH Consulting Sharron vailable STEINER ., DR ROSAS Pinto Admitting Unavailable FAWHID, HAZEL H Primary Care Unavailable MOLINA ., STAR Consulting Unavailable STEINER ., DR ROSAS Pinto Attending Unavailable STEINER ., DR ROSAS Pinto Admitting Unavailable FAWHID, HAZEL H Primary Care Unavailable MOLINA ., STAR Consulting Unavailable STEINER ., DR ROSAS Pinto Attending Unavailable [facility] HAZEL H Primary Care Unavailable STEINER .DR ROSAS Admitting Unavailable MOLINA ., STAR Consulting Unavailable STEINER ., DR ROSAS Pinto Attending Unavailable Shaikh Ashby MD Primary Care Provider [phone] Medications Current Medications Medication Drug Class(es) Dates Sig (Normalized) Sig (Original) acetaminophen 325 mg / oxyCODONE hydrochloride 5 mg oral tablet (1 source) Opioid Agonist take 1 tablet by mouth every eight hours as needed for pain oxyCODONE-acetami nophen (Percocet) 5-325 MG tablet Take 1 tablet by mouth every 8 (eight) hours if needed for moderate pain 0 Active amphetamine aspartate 2.5 mg / amphetamine sulfate 2.5 mg / dextroamphetamine saccharate 2.5 mg / dextroamphetamine sulfate 2.5 mg oral tablet (2 sources) Central Nervous System Stimulant Start: 11-06-2023 End: 01-09-2024 take 1 tablet by mouth in the morning amphetamine-dextr oamphetamine (Adderall) 10 MG tablet Indications: Obstructive sleep apnea Take 1 tablet (10 mg) by mouth in the morning. 30 tablet 0 12/10/2023 01/09/2024 Active losartan potassium 100 mg oral tablet (2 sources) Angiotensin 2 Receptor Katelin Start: 09-21-2023 End: 03-09-2024 take 1 tablet by mouth in the morning losartan (Cozaar) 100 MG tablet Indications: Primary hypertension (CMS/HCC) Take 1 tablet (100 mg) by mouth in the morning. 90 tablet 0 12/10/2023 03/09/2024 Active meloxicam 15 mg oral tablet (1 source) Nonsteroidal Anti-inflammatory Drug Start: 09-24-2023 take 1 tablet by mouth in the morning meloxicam (Mobic) 15 MG tablet Take 15 mg by mouth in the morning. 0 09/24/2023 Active naloxone hydrochloride 40 mg/ml nasal spray (1 source) Opioid Antagonist Start: 08-19-2023 naloxone (Narcan) 4 mg/0.1 mL nasal spray Administer 4 mg into affected nostril(s) if needed 0 08/19/2023 Active polymyxin b 55735 unt/ml / trimethoprim 1 mg/ml ophthalmic solution (1 source) Dihydrofolate Reductase Inhibitor Antibacterial, Polymyxin-class Antibacterial Start: 04-13-2023 take 1 drop(s) into the eye(s) every six hours trimethoprim-poly myxin b (Polytrim) ophthalmic solution Administer 1 drop into both eyes every 6 (six) hours 0 04/13/2023 Active Problems Active Problems Problem Classification Problem Date Documented Date Episodic/Chronic Essential hypertension (6 sources) Essential (primary) hypertension; Translations: [Essential hypertension] Onset: 07-01-2018 Chronic Other nervous system disorders (4 sources) Other chronic pain; Translations: [OTHER CHRONIC PAIN] Onset: 01-22-2023 Chronic Other nervous system disorders (4 sources) Polyneuropathy, unspecified; Translations: [POLYNEUROPATHY UNSPECIFIED] Onset: 04-03-2022 Chronic Residual codes; unclassified (1 source) Obstructive sleep apnea syndrome; Translations: [Obstructive sleep apnea (adult) (pediatric)] 12-10-2023 Chronic Residual codes; unclassified (1 source) Sleep [...] 02-20-2022 BASO # 0.0 103/ul Normal 0.0-0.1 [facility] Comment on above: Performed By: #### C BC #### [facility] [address] [place] [address] Dr. Angel Harding Basophils/100 WBC (Bld) 0.7 % Normal 0.2-2.0 [facility] Comment on above: Performed By: #### C BC #### [facility] [address] [place] [address] Dr. Angel Harding EO # 0.2 103/ul Normal 0.0-0.7 [facility] Comment on above: Performed By: #### C BC #### [facility] [address] [place] [address] Dr. Angel Harding Eosinophils/100 WBC (Bld) 2.6 % Normal 0.9-7.0 [facility] Comment on above: Performed By: #### C BC #### [facility] [address] [place] [address] Dr. Angel Harding Erythrocyte distribution width (RBC) [Ratio] 12.4 % Normal 11.0-15.0 [facility] Comment on above: Performed By: #### C BC #### [facility] [address] [place] [address] Dr. Angel Harding Hematocrit (Bld) [Volume fraction] 42.2 % Normal 42.0-54.0 [facility] Comment on above: Performed By: #### C BC #### [facility] [address] [place] [address] Dr. Angel Harding Hemoglobin (Bld) [Mass/Vol] 14.1 g/dL Normal 14.0-18.0 [facility] Comment on above: Performed By: #### C BC #### [facility] [address] [place] [address] Dr. Angel Harding IG # 0.02 10e3/ul Normal 0.00-0.03 [facility] Comment on above: Performed By: #### C BC #### [facility] [address] [place] [address] Dr. Angel Harding IG % 0.3 % Normal 0.0-0.5 [facility] Comment on above: Performed By: #### C BC #### [facility] [address] [place] [address] Dr. Angel Harding LYMPH # 2.4 103/ul Normal 1.2-3.8 [facility] Comment on above: Performed By: #### C BC #### [facility] [address] [place] [address] Dr. Angel Harding Lymphocytes/100 WBC (Bld) 39.4 % Normal 20.5-60.0 [facility] Comment on above: Performed By: #### C BC #### [facility] [address] [place] [address] Dr. Angel Harding MANUAL DIFF REQ NO Normal [facility] Comment on above: Performed By: #### C BC #### [facility] [address] [place] [address] Dr. Angel Harding MCH (RBC) [Entitic mass] 31.4 pg Normal 25.9-34.0 [facility] Comment on above: Performed By: #### C BC #### [facility] [address] [place] [address] Dr. Angel Harding MCHC (RBC) [Mass/Vol] 33.4 g/dL Normal 29.9-35.2 [facility] Comment on above: Performed By: #### C BC #### [facility] [address] [place] [address] Dr. Angel Harding MCV (RBC) [Entitic vol] 94.0 fL Normal 80.0-94.0 [facility] Comment on above: Performed By: #### C BC #### [facility] [address] [place] [address] Dr. Angel Harding MONO # 0.5 103/ul Normal 0.3-0.8 [facility] Comment on above: Performed By: #### C BC #### [facility] [address] [place] [address] Dr. Angel Harding Monocytes/100 WBC (Bld) 7.5 % Normal 1.7-12.0 [facility] Comment on above: Performed By: #### C BC #### [facility] [address] [place] [address] Dr. Angel Harding NEUT # 3.0 103/ul Normal 1.4-6.5 [facility] Comment on above: Performed By: #### C BC #### [facility] [address] [address] [address] Angel Harding Neutrophils/100 WBC (Bld) 49.5 % Normal 43.0-75.0 [facility] Comment on above: Performed By: #### C BC #### [facility] [address] [address] [address] Angel Harding Platelet mean volume (Bld) [Entitic vol] 9.7 fL Normal 9.5-13.5 [facility] Comment on above: Performed By: #### C BC #### [facility] [address] [place] [address] Dr. Angel Harding PLT 275 103/ul Normal 150-450 [facility] Comment on above: Performed By: #### C BC #### [facility] [address] [place] [address] Dr. Angel Harding RBC 4.49 106/ul Critically low 4.70-6.10 [facility] Comment on above: Performed By: #### C BC #### [facility] [address] [address] [address] Angel Harding WBC 6.1 103/ul Normal 4.0-11.0 [facility] Comment on above: Performed By: #### C BC #### [facility] [address] [place] [address] Dr. Angel Harding GLYCOHEMOGLOBIN A1Con 2021 ADA RECOMMENDATION SEE BELOW Normal [facility] Comment on above: Result Comment: ADA RECOMMENDED LIMIT 4.0 - 6.0 ADA THERAPEUTIC TARGET < 7.0 ACTION SUGGESTED > 7.0 Performed By: #### A 1C #### [facility] [address] [place] [address] Dr. Angel Harding Glucose [Mass/Vol] 117 mg/dL Normal [facility] Comment on above: Performed By: #### A 1C #### [facility] [address] [place] [address] Dr. Angel Harding HbA1c (Bld) [Mass fraction] 5.7 % Normal 4.5-6.2 [facility] Comment on above: Performed By: #### A 1C #### [facility] [address] [address] [address] Angel Harding LIPID PROFILEon 02-20-2022 CHOL-HDL RATIO NORM SEE BELOW Normal [facility] Comment on above: Result Comment: 3.3 - 4.4 LOW RISK 4.4 - 7.1 AVERAGE RISK 7.1 - 11.0 MODERATE RISK >11.0 HIGH RISK Performed By: #### C MP, LIPID #### [facility] [address] [address] [address] Angel Harding Cholesterol [Mass/Vol] 217 mg/dL Critically high <=200 [facility] Comment on above: Performed By: #### C MP, LIPID #### [facility] [address] [address] [address] Angel Harding Cholesterol in HDL [Mass/Vol] 47 mg/dL Normal 40-60 [facility] Comment on above: Performed By: #### C MP, LIPID #### [facility] [address] [address] [address] Angel Harding Cholesterol in LDL [Mass/Vol] 125.2 mg/dL Normal [facility] Comment on above: Performed By: #### C MP, LIPID #### [facility] [address] [address] [address] Angel Harding Cholesterol.total/Ch olesterol in HDL [Mass ratio] 4.6 {ratio} Normal [facility] Comment on above: Performed By: #### C MP, LIPID #### [facility] [address] [address] [address] Angel Harding HDL NORMAL > or = 60 mg/dl - LO W CARDIOVASCULAR RISK <40 mg/dl - HIGH CARDIOVASCULAR RISK Normal [facility] Comment on above: Performed By: #### C MP, LIPID #### [facility] [address] [address] [address] Angel Harding LDL CALC NORMAL SEE BELOW Normal [facility] Comment on above: Result Comment: <100 mg/dl OPTIMAL 100 - 129 mg/dl NEAR OR ABOVE OPTIMAL 130 - 159 mg/dl BORDERLINE HIGH 160 - 189 mg/dl HIGH >190 mg/dl VERY HIGH Performed By: #### C MP, LIPID #### [facility] [address] [place] [address] Dr. Angel Harding Triglyceride [Mass/Vol] 224 mg/dL Critically high <=150 [facility] Comment on above: Performed By: #### C MP, LIPID #### [facility] [address] [place] [address] Dr. Angel Harding VLDL CALC 44.8 mg/dL Normal [facility] Comment on above: Performed By: #### C MP, LIPID #### [facility] [address] [place] [address] Dr. Angel Harding PROF 14(COMP METB)on 022 Albumin [Mass/Vol] 3.8 g/dL Normal 3.4-5.0 [facility] Comment on above: Performed By: #### C MP, LIPID #### [facility] [address] [place] [address] Dr. Angel Harding Albumin/Globulin [Mass ratio] 1.0 {ratio} Normal [facility] Comment on above: Performed By: #### C MP, LIPID #### [facility] [address] [place] [address] Dr. Angel Harding ALP [Catalytic activity/Vol] 91 U/L Normal 46-116 [facility] Comment on above: Performed By: #### C MP, LIPID #### [facility] [address] [place] [address] Dr. Angel Harding ALT [Catalytic activity/Vol] 66 U/L Critically high 16-63 [facility] Comment on above: Performed By: #### C MP, LIPID #### [facility] [address] [place] [address] Dr. Angel Harding Anion gap [Moles/Vol] 13.0 mmol/L Normal [facility] Comment on above: Performed By: #### C MP, LIPID #### [facility] [address] [place] [address] Dr. Angel Harding AST [Catalytic activity/Vol] 29 U/L Normal 15-37 [facility] Comment on above: Performed By: #### C MP, LIPID #### [facility] [address] [place] [address] Dr. Angel Harding Bilirubin [Mass/Vol] 0.3 mg/dL Normal 0.2-1.0 [facility] Comment on above: Performed By: #### C MP, LIPID #### [facility] [address] [place] [address] Dr. Angel Harding Calcium [Mass/Vol] 8.6 mg/dL Normal 8.5-10.1 [facility] Comment on above: Performed By: #### C MP, LIPID #### [facility] [address] [place] [address] Dr. Agnel Harding Chloride [Moles/Vol] 106 mmol/L Normal 98-107 [facility] Comment on above: Performed By: #### C MP, LIPID #### [facility] [address] [place] [address] Dr. Angel Harding CO2 [Moles/Vol] 25.7 mmol/L Normal 21.0-32.0 [facility] Comment on above: Performed By: #### C MP, LIPID #### [facility] [address] [place] [address] Dr. Angel Harding Creatinine [Mass/Vol] 0.83 mg/dL Normal 0.70-1.30 [facility] Comment on above: Performed By: #### C MP, LIPID #### [facility] [address] [place] [address] Dr. Angel Harding EGFR-AF ETHIOPIAN >60 Normal >=60 [facility] Comment on above: Performed By: #### C MP, LIPID #### [facility] [address] [place] [address] Dr. Angel Harding EGFR-NON AF ETHIOPIAN >60 Normal >=60 [facility] Comment on above: Performed By: #### C MP, LIPID #### [facility] [address] [place] [address] Dr. Angel Harding Globulin (S) [Mass/Vol] 3.7 g/dL Normal [facility] Comment on above: Performed By: #### C MP, LIPID #### [facility] [address] [place] [address] Dr. Angel Harding Glucose [Mass/Vol] 114 mg/dL Critically high 74-106 [facility] Comment on above: Performed By: #### C MP, LIPID #### [facility] [address] [place] [address] Dr. Angel Harding Potassium [Moles/Vol] 4.7 mmol/L Normal 3.5-5.1 [facility] Comment on above: Performed By: #### C MP, LIPID #### [facility] [address] [place] [address] Dr. Angel Harding Protein [Mass/Vol] 7.5 g/dL Normal 6.1-8.2 [facility] Comment on above: Performed By: #### C MP, LIPID #### [facility] [address] [place] [address] Dr. Angel Harding Sodium [Moles/Vol] 140 mmol/L Normal 136-145 [facility] Comment on above: Performed By: #### C MP, LIPID #### [facility] [address] [place] [address] Dr. Angel Harding Urea nitrogen [Mass/Vol] 12.0 mg/dL Normal 7.0-18.0 [facility] Comment on above: Performed By: #### C MP, LIPID #### [facility] [address] [place] [address] Dr. Angel Harding Urea nitrogen/Creatinine [Mass ratio] 14.5 mg/mg Normal [facility] Comment on above: Performed By: #### C MP, LIPID #### [facility] [address] [place] [address] Dr. Angel Harding Operative Reporton 8 Operative Report MR#: [id number] [facility] Pt. Name: Cristi Honeycutt [facility] #: [id number] Discharge Date: Birthdate: 1975 OPERATIVE REPORTDATE OF SURGERY: 07/01/2018SURGEON: Eden Solorio MDPREOPERATIVE DIAGNOSIS: Rectal bleeding.POSTOPERATIVE DIAGNOSIS: Right posterior mixed internal and externalhemorrhoids.AK OCEDURES:1. Excision of mixed right posterior internal and external hemorrhoids.2. Exparel was used to do a perianal block.ANESTHESIA: MAC.COMPLICATIONS: None.INDICATION FOR PROCEDURE: This is a 42-year-old male presented to [facility] with rectal pain and bleeding. Decision [...] Signed by:Eden Solorio MD 07/01/2018 12:20 P NARCISO Marionate Dict: 07/01/2018/09:02 Shannon/NARCISO Artisate Trans: 07/01/2018 11:00 [id number] Normal [facility] POC GLUCOSE LABon 07-01-2018 Glucose mass conc 101 mg/dL High 70-100 [facility] Comment on above: Performed By: #### [id number] ####[facility] Encounters Encounter Date Encounter Type Care Provider Facility Start: 12-10-2023 Orders Only Shaikh Symone CAMACHO Work Phone: [facility] Comment on above: Primary hypertension (CMS/HCC) (Primary Dx); Obstructive sleep apnea Start: 01-22-2023 End: 01-23-2023 ambulatory CARMELLA FRANKSMAURIZIOPAU . Facility: Start: 10-24-2022 End: 10-25-[address] ROSAS STEINER . Facility:[facility] Start: 07-16-2022 End: 07-17-[address] ROSAS STEINER . Facility:[facility] Start: 04-03-2022 End: 04-04-2022 ambulatory SHAIKH Asuncion ASHBY Facility: Start: 02-20-2022 End: 02-21-2022 ambulatory SHAIKH Asuncion ASHBY Facility: Start: 07-01-2018 End: 07-02-2018 Patient encounter procedure EDEN SOLORIO Facility:[facility] Start: 06-08-2018 End: 06-09-2018 Patient encounter procedure DEFAULT PHYSICIAN Facility:[facility] Procedures Date Procedure Procedure Detail Performing Clinician Start: 07-01-2018 ANESTH ANORECTAL SURGERY JENNY COLUNGA Start: 07-01-2018 REMOVE BY LIGAT INT HEM GRP EDEN SOLORIO Plan of Treatment Date Care Activity Detail Author Start: 06-26-2023 Influenza vaccination Influenza Vacc ine (#1) [facility] Start: 1975 Screening for malign ant neoplasm of colon [facility] Payers Date Payer Category Payer Unknown [id number] [id number] 1975 Unknown [id number] [id number] 1975 Unknown [id number] 2.16.84 [id number] 1975 Unknown [id number] 2.16.84 [id number] 1975 Unknown [id number] 2.16.84 [id number] 1975 Unknown [id number] 2.16.84 [id number] 1975 Unknown [id number] 2.16.84 [id number] 1958 Unknown [id number] Unknown Social History Date Type Detail Facility Tobacco smoking stat [facility] Tobacco smoking consumption unknown [facility] Start: 1975 Sex Assigned At Not on file [facility] Gender identity Not on file [facility] Consultation note 01-22-2023 Note Date & Type Note Facility 01-22-2023 Note CONSULTATION CONSULTATION DATE: 01/22/2023 TO: Dr. Ashby CHIEF COMPLAINT: Includes lower back pain occurring [...] secondary to the strained patient/physician relationship. [facility] Consultation note 10-24-2022 Note Date & Type Note Facility 10-24-2022 Note CONSULTATION CONSULTATION DATE: 10/24/2022 HISTORY OF PRESENT ILLNESS: This is a 46-year-old male. He is a snf patient of our clinic, being seen for a three month follow up for chronic lower back pain. Historically, the patient has declined procedures that have been offered and prefers to be medically maintained. His medications include Mobic 15 mg daily, Percocet 5/325 t.i.d., tizanidine 4 mg p.r.n. and Adderall. 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 His chronic pain does not interfere with ADLs, as long as he is compliant with his medications. 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 This morning, [...] three months' time, unless otherwise indicated. [facility] Consultation note 07-16-2022 Note Date & Type [...] Patient is in agreement to this. [facility] Consultation note 04-03-2022 Note Date & Type [...] mid upper back. 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 [facility] Signed and Approved by: STAR MOLINA . 04/10/2022 16:02:00 [facility] Evaluation note Note Date & Type Note Facility Evaluation note Diagnosis Primary hypertension ([facility])- Primary Unspecified essential hypertension Obstructive sleep apnea Obstructive sleep apnea (adult) (pediatric) documented in this encounter [facility] Summary Purpose Family History No Family History Records FoundNo Family History Records Found Advance Directives No Advanced Directives Records FoundNo Advanced Directives Records Found Additional Source Comments (unrecognized sect ion and content) No Status Records FoundNo Status Records Found INFORMATION SOURCE (unrecogn ized section and content) DATE CREATED AUTHOR 10/21/2018 [facility] DATE CREATED AUTHOR AUTHOR'S ORGANIZ ATION 01/31/2023 [facility] Care Teams (unrecognized sec tion and content) Wheat Shipper Relationship Specialty Start Date End Date Shaikh Ashby MD PCP - General Internal Medicine 05/13/23 FOR RECORDS PERTAINING TO PATIENTS WHO ARE [...] BE BASED ON THE PRIMARY CLINICAL RECORDS. [facility] provides no warranty or guarantee of the accuracy or completeness of information in this document.
--- NOTE | 2024-02-25 07:48 | P.CN_ITS ---
Consult Note: HPI Data of Consult Patient: known to practice within the last 3 years Requesting Physician: Emma Albert NP Primary Care Provider: Shaikh Symone MD Consult Narrative Reason for consult: f/u Narrative: Cristi Honeycutt a 47 year old male presents for evaluation and management of chronic back pain and left shoulder pain. Today rating pain 4-5/10, reports it gets up to a 10/10 at times. Patient reports pain is well controlled since last visit and he continues to be active with work. Pain radiating to knees with weakness burning numbing and cramping, increased with all activity and long periods of standing, reporting left shoulder pain with bilateral arms/tingling. Patient continues to report he cannot afford imaging, PT, injection therapy. Patient finds no improvement with HEP and physical labor at home. Patient continues to report functional improvement and benefit from current medication regimen. Reports percocet use TID PRN but does require TID daily. Denies side effects cc:: CC: Emma Albert NP Review of Systems ROS Status of ROS 10 or more systems reviewed and unremark able except as noted in history and below Musculoskeletal Reports: back pain, neck pain, extremity pain and joint pain Meds Home Medications and Allergies Home Medications ?Medication ?Instructions ?Recorded ?Confirmed ?Type dextroamphetamine-amphetamine 10 10 mg PO DAILY 05/14/23 05/14/23 History mg tablet (Adderall) losartan 100 mg tablet 100 mg PO DAILY 05/14/23 05/14/23 History meloxicam 15 mg tablet 15 mg PO DAILY 05/14/23 05/14/23 History tizanidine 4 mg tablet 8 mg PO BEDTIME PRN muscle spasm 05/14/23 05/14/23 History naloxone 4 mg/actuation nasal 1 spray intranasal Q3M PRN opioid 08/19/23 Rx spray (Narcan) overdose #2 ea meloxicam 15 mg tablet 15 mg PO DAILY #30 tabs 09/22/23 Rx meloxicam 15 mg tablet 15 mg PO DAILY #30 tabs 01/20/24 Rx oxycodone-acetaminophen 5 mg-325 1 tab PO TID PRN pain #80 tabs 02/25/24 Rx mg tablet oxycodone-acetaminophen 5 mg-325 1 tab PO TID 02/25/24 02/25/24 History mg tablet (Percocet) Allergies Allergy/AdvReac Type Severity Reaction Status Date / Time No Known Drug Allergies Allergy Verified 05/14/23 09:27 Exam Constitutional Documenting provider has reviewed patient's vital signs: yes Common normals: no apparent distress, oriented x3, healthy appearing, alert and well nourished General appearance: cooperative HENMO Common normals: normocephalic, hearing grossly normal bilaterally and moist oral mucous membranes Head and scalp: normocephalic Eye Common normals: PERRL Pupil: PERRL Neck & C-Spine Common normals: full ROM General: normal visual inspection Chest Common normals: inspection of chest normal Respiratory Common normals: normal respiratory effort, no retractions and no use of accessory muscles Back & Pelvis Thoracic spine/upper back: ROM limited and pain with ROM Lumbar spine/lower back: ROM limited, pain with ROM and straight leg raise negative bilaterally Sacroiliac joints: SI joints normal Other: palpable muscle spasms throughout back positive facet loading lumbar spine worse on left than right Extremity Common normals: normal to inspection and full ROM Neuro Common normals: oriented x3, CN's II-XII intact bilaterally, moves all extremities, no focal motor deficits, no sensory deficits noted and deep tendon reflexes 2+ bilaterally Sensorium/orientation: alert Motor exam: strength 5/5 throughout and no movement abnormalities noted Psych Common normals: mental status grossly normal, thought process normal, cooperative, affect normal, speech normal and activity/motor behavior normal Speech: normal speech Thought process: normal thought process Results Additional Findings Additional findings: If on a controlled substance or opioids, I have checked an [place] report on this patient and there are no aberrancies noted in the prescribing history.??If on a controlled substance or opioid a drug screen was completed and reviewed within the last year, and if there has not been a drug screen completed we ordered one today to monitor higher risk, state monitored pain medication use. As part of providing excellent, safe, comprehensive care, the following was completed at our patient's visit: 1. A medication reconciliation and review to ensure accurate knowledge of current/active medications, including asking our patients to inform us about any [id number] medications or herbal remedies/nutritional supplements/alternative remedies. 2. A review to specifically ensure our patients have had annual screening for screening for depression, screening for tobacco use, and screening for unhealthy alcohol use. For concerning screenings had a discussion with the patient, provided patient education, and recommended follow-up with primary care provider when appropriate. If patient noted with a risk of falling, they received education on strength, gait, and balance training to prevent future risk of falling. Assessment and Plan Assessment and Plan (1) Lumbar spondylosis: (2) Chronic prescription opiate use: Assessment and Plan: I feel these medications are improving the patient's quality of life and allow them to tolerate activities of daily living as well as participate in recreational activity.? The patient does not report intolerable side effects. The patient is NOT opioid naive and non-pharmacologic and non-opioid treatment has failed to significantly relieve the patient's pain and improve functionality. The patient has a diagnosis that is related to a somatic or visceral pain etiology. ? ?? I reviewed with the patient the potential risks and side effects with the use of? opioid medications including but not limited to respiratory depression,? sedation, and even . I verified the patient has access to naloxone should? these effects occur. I advised the patient to avoid the use of any other? sedation substances including alcohol, THC, and benzodiazepines while? taking opioid medications due to the risk of compounding side effects and? detrimental outcomes. I reviewed the [employer]OLOG[employer] PROFESSOR, pain treatment agreement, urine? drug screen, and opioid start talking forms. The patient was advised to let? their family know they had Naloxone in case they would need to administer? the medication.? ?? A drug screen was completed within the last year, and no aberrancies were noted regarding their use of controlled substances. The patient understands they are subject to the terms and conditions of the pain contract that they have signed. ? ?? I have checked an [place] report on this patient today and there are no aberrancies noted in the prescribing history.? (3) Spondylolysis, thoracic region: (4) Lumbar stenosis with neurogenic claudication: (5) Muscle spasm: Plan continue percocet 5-325mg TID PRN moderate to severe pain, continues to report functional improvement. denies side effects from medication regimen continue conservative care continue HEP cannot afford PT, xrays, or injection therapy doing well on current medication regimen without side effects educated on narcan and prescribed f/u 3 months, sooner if needed
== END 2024-02-25 07:40 | disposition home or self-care (01) ==
PROVIDERS: PCP Internal Medicine; Visit Provider Nurse Practitioner
DX: M47.816 Spondylosis without myelopathy or radiculopathy, lumbar region (principal); Z79.891 Long term (current) use of opiate analgesic; M47.814 Spondylosis without myelopathy or radiculopathy, thoracic region; M62.838 Other muscle spasm
CPT/HCPCS: G0463

== ENCOUNTER 2024-05-26 07:40 | Outpatient (OUT) | payer OTHER, SELFPAY ==
--- NOTE | 2024-05-26 07:43 | PM.CN ---
Consult Note: HPI Data of Consult Patient: known to practice within the last 3 years Requesting Physician: Emma Albert NP Primary Care Provider: Shaikh Symone MD Consult Narrative Reason for consult: f/u Narrative: Cristi Honeycutt a 47 year old male presents for evaluation and management of chronic back pain and bilateral knee pain Today rating pain 3/10, reports it gets up to a 10/10 at times. Patient reports pain is well controlled since last visit and he continues to be active with work. Pain increased with long periods of sitting and improved with activity. Patient continues to report he cannot afford imaging, PT, injection therapy. Patient finds no improvement with HEP and physical labor at home. Patient continues to report functional improvement and benefit from current medication regimen. Reports percocet use TID PRN but does require TID daily. Denies side effects cc:: CC: Emma Albert NP Review of Systems ROS Status of ROS 10 or more systems reviewed and unremarkable except as noted in history and below Musculoskeletal Reports: back pain and joint pain Meds Home Medications and Allergies Home Medications ?Medication ?Instructions ?Recorded ?Confirmed ?Type dextroamphetamine-amphetamine 10 10 mg PO DAILY 05/14/23 05/14/23 History mg tablet (Adderall) losartan 100 mg tablet 100 mg PO DAILY 05/14/23 05/14/23 History meloxicam 15 mg tablet 15 mg PO DAILY 05/14/23 05/14/23 History tizanidine 4 mg tablet 8 mg PO BEDTIME PRN muscle spasm 05/14/23 05/14/23 History naloxone 4 mg/actuation nasal 1 spray intranasal Q3M PRN opioid 08/19/23 Rx spray (Narcan) overdose #2 ea meloxicam 15 mg tablet 15 mg PO DAILY #30 tabs 09/22/23 Rx meloxicam 15 mg tablet 15 mg PO DAILY #30 tabs 01/20/24 Rx oxycodone-acetaminophen 5 mg-325 1 tab PO TID PRN pain #80 tabs 02/25/24 Rx mg tablet oxycodone-acetaminophen 5 mg-325 1 tab PO TID 02/25/24 02/25/24 History mg tablet (Percocet) oxycodone-acetaminophen 5 mg-325 1 tab PO TID PRN pain #80 tabs 03/23/24 Rx mg tablet (Percocet) meloxicam 15 mg tablet 15 mg PO DAILY #30 tabs 04/25/24 Rx oxycodone-acetaminophen 5 mg-325 1 tab PO TID PRN pain #80 tabs 04/25/24 Rx mg tablet (Percocet) oxycodone-acetaminophen 5 mg-325 1 tab PO TID PRN pain #80 tabs 05/24/24 Rx mg tablet (Percocet) oxycodone-acetaminophen 5 mg-325 1 tab PO TID PRN pain #80 tabs 05/24/24 Rx mg tablet (Percocet) Allergies Allergy/AdvReac Type Severity Reaction Status Date / Time No Known Drug Allergies Allergy Verified 05/14/23 09:27 Exam Constitutional Documenting provider has reviewed patient's vital signs: yes Common normals: no apparent distress, oriented x3, healthy appearing, alert and well nourished General appearance: cooperative [facility] Common normals: normocephalic, hearing grossly normal bilaterally and moist oral mucous membranes Head and scalp: normocephalic Eye Common normals: PERRL Pupil: PERRL Neck & C-Spine Common normals: full ROM General: normal visual inspection Chest Common normals: inspection of chest normal Respiratory Common normals: normal respiratory effort, no retractions and no use of accessory muscles Back & Pelvis Thoracic spine/upper back: ROM limited and pain with ROM Lumbar spine/lower back: ROM limited, pain with ROM and straight leg raise negative bilaterally Sacroiliac joints: SI joints normal Other: palpable muscle spasms throughout back positive facet loading lumbar spine worse on left than right Extremity Common normals: normal to inspection and full ROM Right lower extremity: knee joint Left lower extremity: knee joint Other: mild edema, no instability Neuro Common normals: oriented x3, CN's II-XII intact bilaterally, moves all extremities, no focal motor deficits, no sensory deficits noted and deep tendon reflexes 2+ bilaterally Sensorium/orientation: alert Motor exam: strength 5/5 throughout and no movement abnormalities noted Psych Common normals: mental status grossly normal, thought process normal, cooperative, affect normal, speech normal and activity/motor behavior normal Speech: normal speech Thought process: normal thought process Results Additional Findings Additional findings: If on a controlled substance or opioids, I have checked an [place] report on this patient and there are no aberrancies noted in the prescribing history.??If on a controlled substance or opioid a drug screen was completed and reviewed within the last year, and if there has not been a drug screen completed we ordered one today to monitor higher risk, state monitored pain medication use. As part of providing excellent, safe, comprehensive care, the following was completed at our patient's visit: 1. A medication reconciliation and review to ensure accurate knowledge of current/active medications, including asking our patients to inform us about any [id number] medications or herbal remedies/nutritional supplements/alternative remedies. 2. A review to specifically ensure our patients have had annual screening for screening for depression, screening for tobacco use, and screening for unhealthy alcohol use. For concerning screenings had a discussion with the patient, provided patient education, and recommended follow-up with primary care provider when appropriate. If patient noted with a risk of falling, they received education on strength, gait, and balance training to prevent future risk of falling. Assessment and Plan Assessment and Plan (1) Lumbar spondylosis: (2) Chronic prescription opiate use: Assessment and Plan: I feel these medications are improving the patient's quality of life and allow them to tolerate activities of daily living as well as participate in recreational activity.? The patient does not report intolerable side effects. The patient is NOT opioid naive and non-pharmacologic and non-opioid treatment has failed to significantly relieve the patient's pain and improve functionality. The patient has a diagnosis that is related to a somatic or visceral pain etiology. ? ?? I reviewed with the patient the potential risks and side effects with the use of? opioid medications including but not limited to respiratory depression,? sedation, and even . I verified the patient has access to naloxone should? these effects occur. I advised the patient to avoid the use of any other? sedation substances including alcohol, THC, and benzodiazepines while? taking opioid medications due to the risk of compounding side effects and? detrimental outcomes. I reviewed the [employer], pain treatment agreement, urine? drug screen, and opioid start talking forms. The patient was advised to let? their family know they had Naloxone in case they would need to administer? the medication.? ?? A drug screen was completed within the last year, and no aberrancies were noted regarding their use of controlled substances. The patient understands they are subject to the terms and conditions of the pain contract that they have signed. ? ?? I have checked an [place] report on this patient today and there are no aberrancies noted in the prescribing history.? (3) Spondylolysis, thoracic region: (4) Lumbar stenosis with neurogenic claudication: (5) Muscle spasm: Plan continue percocet 5-325mg TID PRN moderate to severe pain, continues to report functional improvement. continue mobic 15mg daily and PRN tizanidine. denies side effects from medication regimen continue conservative care continue HEP cannot afford PT, xrays, or injection therapy educated on narcan and prescribed f/u 3 months, sooner if needed
--- OUTSIDE RECORDS SUMMARY | 2024-05-26 07:43 | XMS_ITS | CCD ---
Author Organization [facility] CliniSydc Care Team Providers Care Artificial Teeth Inspector Name Role Phone PHYSICIAN, DEFAULT Unavailable Unavailable PHYSICIAN, DEFAULT Unavailable Unavailable EDEN SOLORIO Unavailable Unavailable EDEN SOLORIO Unavailable Unavailable SELF, REFERRED Unavailable Unavailable SELF, REFERRED Unavailable Unavailable [place] Unavailable Unavailable EDEN SOLORIO Unavailable Unavailable [place] Unavailable Unavailable JENNY COLUNGA Unavailable Unavailable FAWDEJabari, HAZEL H Primary Care Unavailable SHAIKH Asuncion OLIVEIRA Consulting Unavailable SHAIKH Asuncion OLIVEIRA Attending Unavailable SHAIKH Asuncion OLIVEIRA Admitting Unavailable LAKSHMIPATHY ., CARMELLA Attending Sharron vailable LAKSHMIPATHY ., NARTAE Admitting Sharron vailable FAWWAD, HAZEL H Primary Care Unavailable LAKSHMIPATHY ., NARENDSASHA Consulting Sharron vailable STEINER ., DR ROSAS Pinto Admitting Unavailable FAWDED, HAZEL H Primary Care Unavailable MOLINA ., STAR Consulting Unavailable STEINER ., DR ROSAS Pinto Attending Unavailable STEINER ., DR ROSAS Pinto Admitting Unavailable FAWWAD, HAZEL H Primary Care Unavailable MOLINA ., STAR Consulting Unavailable JATIN ., DR ROSAS Pinto Attending Unavailable [facility], HAZEL H Primary Care Unavailable STEINER ., DR ROSAS Pinto Admitting Unavailable MOLINA ., STAR Consulting Unavailable JATIN ., DR ROSAS Pinto Attending Unavailable Shaikh Oliveira MD Primary Care Provider [phone] SHAIKH OLIVEIRA Attending Unavailable Medications Current Medications Medication Drug Class(es) Dates [...] if needed 0 08/19/2023 Active polymyxin b 73562 unt/ml / trimethoprim 1 mg/ml ophthalmic solution [...] BASO # 0.0 103/ul Normal 0.0-0.1 [facility] Comment on above: Performed By: #### C BC #### [facility] [address] [place] [address] Dr. Angel Harding Basophils/100 WBC (Bld) 0.7 % Normal 0.2-2.0 [facility] Comment on above: Performed By: #### C BC #### [facility] [address] [place] [address] Dr. Angel Harding EO # 0.2 103/ul Normal 0.0-0.7 [facility] Comment on above: Performed By: #### C BC #### [facility] [address] [place] [address] Dr. Angel Harding Eosinophils/100 WBC (Bld) 2.6 % Normal 0.9-7.0 [facility] Comment on above: Performed By: #### C BC #### [facility] [address] [place] [address] Dr. Angel Harding Erythrocyte distribution width (RBC) [Ratio] 12.4 % Normal 11.0-15.0 [facility] Comment on above: Performed By: #### C BC #### [facility] [address] [place] [address] Dr. Angel Harding Hematocrit (Bld) [Volume fraction] 42.2 % Normal 42.0-54.0 [facility] Comment on above: Performed By: #### C BC #### [facility] [address] [place] [address] Dr. Angel Harding Hemoglobin (Bld) [Mass/Vol] 14.1 g/dL Normal 14.0-18.0 [facility] Comment on above: Performed By: #### C BC #### [facility] [address] [place] [address] Dr. Angel Harding IG # 0.02 10e3/ul Normal 0.00-0.03 [facility] Comment on above: Performed By: #### C BC #### [facility] [address] [place] [address] Dr. Angel Harding IG % 0.3 % Normal 0.0-0.5 [facility] Comment on above: Performed By: #### C BC #### [facility] [address] [place] [address] Dr. Angel Harding LYMPH # 2.4 103/ul Normal 1.2-3.8 [facility] Comment on above: Performed By: #### C BC #### [facility] [address] [place] [address] Dr. Angel Harding Lymphocytes/100 WBC (Bld) 39.4 % Normal 20.5-60.0 [facility] Comment on above: Performed By: #### C BC #### [facility] [address] [place] [address] Dr. Angel Harding MANUAL DIFF REQ NO Normal [facility] Comment on above: Performed By: #### C BC #### [facility] [address] [place] [address] Dr. Angel Harding MCH (RBC) [Entitic mass] 31.4 pg Normal 25.9-34.0 [facility] Comment on above: Performed By: #### C BC #### [facility] [address] [place] [address] Dr. Angel Harding MCHC (RBC) [Mass/Vol] 33.4 g/dL Normal 29.9-35.2 [facility] Comment on above: Performed By: #### C BC #### [facility] [address] [place] [address] Dr. Angel Harding MCV (RBC) [Entitic vol] 94.0 fL Normal 80.0-94.0 [facility] Comment on above: Performed By: #### C BC #### [facility] [address] [place] [address] Dr. Angel Harding MONO # 0.5 103/ul Normal 0.3-0.8 [facility] Comment on above: Performed By: #### C BC #### [facility] [address] [place] [address] Dr. Angel Harding Monocytes/100 WBC (Bld) 7.5 % Normal 1.7-12.0 [facility] Comment on above: Performed By: #### C BC #### [facility] [address] [place] [address] Dr. Angel Harding NEUT # 3.0 103/ul Normal 1.4-6.5 [facility] Comment on above: Performed By: #### C BC #### [facility] [address] [address] [address] Angel Harding Neutrophils/100 WBC (Bld) 49.5 % Normal 43.0-75.0 [facility] Comment on above: Performed By: #### C BC #### [facility] [address] [address] [address] Angel Harding Platelet mean volume (Bld) [Entitic vol] 9.7 fL Normal 9.5-13.5 [facility] Comment on above: Performed By: #### C BC #### [facility] [address] [address] [address] Angel Harding PLT 275 103/ul Normal 150-450 [facility] Comment on above: Performed By: #### C BC #### [facility] [address] [address] [address] Angel Harding RBC 4.49 106/ul Critically low 4.70-6.10 [facility] Comment on above: Performed By: #### C BC #### [facility] [address] [address] [address] Angel Harding WBC 6.1 103/ul Normal 4.0-11.0 [facility] Comment on above: Performed By: #### C BC #### [facility] [address] [address] [address] Angel Harding GLYCOHEMOGLOBIN A1Con 2021 ADA RECOMMENDATION SEE BELOW Normal [facility] Comment on above: Result Comment: ADA RECOMMENDED LIMIT 4.0 - 6.0 ADA THERAPEUTIC TARGET < 7.0 ACTION SUGGESTED > 7.0 Performed By: #### A 1C #### [facility] [address] [address] [address] Angel Harding Glucose [Mass/Vol] 117 mg/dL Normal [facility] Comment on above: Performed By: #### A 1C #### [facility] [address] [address] [address] Angel Harding HbA1c (Bld) [Mass fraction] 5.7 % Normal 4.5-6.2 [facility] Comment on above: Performed By: #### A 1C #### [facility] [address] [address] [address] Angel Harding LIPID PROFILEon 02-20-2022 CHOL-HDL RATIO NORM SEE BELOW Normal [facility] Comment on above: Result Comment: 3.3 - 4.4 LOW RISK 4.4 - 7.1 AVERAGE RISK 7.1 - 11.0 MODERATE RISK >11.0 HIGH RISK Performed By: #### C MP, LIPID #### [facility] [address] [address] [address] Angel Harding Cholesterol [Mass/Vol] 217 mg/dL Critically high <=200 [facility] Comment on above: Performed By: #### C MP, LIPID #### [facility] [address] [address] [address] Angel Harding Cholesterol in HDL [Mass/Vol] 47 mg/dL Normal 40-60 [facility] Comment on above: Performed By: #### C MP, LIPID #### [facility] [address] [address] [address] Angel Harding Cholesterol in LDL [Mass/Vol] 125.2 mg/dL Normal [facility] Comment on above: Performed By: #### C MP, LIPID #### [facility] [address] [address] [address] Angel Harding Cholesterol.total/Ch olesterol in HDL [Mass ratio] 4.6 {ratio} Normal [facility] Comment on above: Performed By: #### C MP, LIPID #### [facility] [address] [address] [address] Angel Harding HDL NORMAL > or = 60 mg/dl - LO W CARDIOVASCULAR RISK <40 mg/dl - HIGH CARDIOVASCULAR RISK Normal [facility] Comment on above: Performed By: #### C MP, LIPID #### [facility] [address] [address] [address] Angel Harding LDL CALC NORMAL SEE BELOW Normal [facility] Comment on above: Result Comment: <100 mg/dl OPTIMAL 100 - 129 mg/dl NEAR OR ABOVE OPTIMAL 130 - 159 mg/dl BORDERLINE HIGH 160 - 189 mg/dl HIGH >190 mg/dl VERY HIGH Performed By: #### C MP, LIPID #### [facility] [address] [place] [address] Dr. Angel Harding Triglyceride [Mass/Vol] 224 mg/dL Critically high <=150 [facility] Comment on above: Performed By: #### C MP, LIPID #### [facility] [address] [place] [address] Dr. Angel Harding VLDL CALC 44.8 mg/dL Normal [facility] Comment on above: Performed By: #### C MP, LIPID #### [facility] [address] [place] [address] Dr. Angel Harding PROF 14(COMP METB)on 022 Albumin [Mass/Vol] 3.8 g/dL Normal 3.4-5.0 [facility] Comment on above: Performed By: #### C MP, LIPID #### [facility] [address] [place] [address] Dr. Angel Harding Albumin/Globulin [Mass ratio] 1.0 {ratio} Normal [facility] Comment on above: Performed By: #### C MP, LIPID #### [facility] [address] [place] [address] Dr. Angel Harding ALP [Catalytic activity/Vol] 91 U/L Normal 46-116 [facility] Comment on above: Performed By: #### C MP, LIPID #### [facility] [address] [place] [address] Dr. Angel Harding ALT [Catalytic activity/Vol] 66 U/L Critically high 16-63 [facility] Comment on above: Performed By: #### C MP, LIPID #### [facility] [address] [place] [address] Dr. Angel Harding Anion gap [Moles/Vol] 13.0 mmol/L Normal [facility] Comment on above: Performed By: #### C MP, LIPID #### [facility] [address] [place] [address] Dr. Angel Harding AST [Catalytic activity/Vol] 29 U/L Normal 15-37 [facility] Comment on above: Performed By: #### C MP, LIPID #### [facility] [address] [place] [address] Dr. Angel Harding Bilirubin [Mass/Vol] 0.3 mg/dL Normal 0.2-1.0 [facility] Comment on above: Performed By: #### C MP, LIPID #### [facility] [address] [place] [address] Dr. Angel Harding Calcium [Mass/Vol] 8.6 mg/dL Normal 8.5-10.1 [facility] Comment on above: Performed By: #### C MP, LIPID #### [facility] [address] [place] [address] Dr. Angel aHrding Chloride [Moles/Vol] 106 mmol/L Normal 98-107 [facility] Comment on above: Performed By: #### C MP, LIPID #### [facility] [address] [place] [address] Dr. Angel Harding CO2 [Moles/Vol] 25.7 mmol/L Normal 21.0-32.0 [facility] Comment on above: Performed By: #### C MP, LIPID #### [facility] [address] [place] [address] Dr. Angel Harding Creatinine [Mass/Vol] 0.83 mg/dL Normal 0.70-1.30 [facility] Comment on above: Performed By: #### C MP, LIPID #### [facility] [address] [place] [address] Dr. Angel Harding EGFR-AF HUNGARIAN >60 Normal >=60 [facility] Comment on above: Performed By: #### C MP, LIPID #### [facility] [address] [place] [address] Dr. Angel Harding EGFR-NON AF HUNGARIAN >60 Normal >=60 [facility] Comment on above: Performed By: #### C MP, LIPID #### [facility] [address] [place] [address] Dr. Angel Harding Globulin (S) [Mass/Vol] 3.7 g/dL Normal [facility] Comment on above: Performed By: #### C MP, LIPID #### [facility] [address] [address] [address] Angel Harding Glucose [Mass/Vol] 114 mg/dL Critically high 74-106 [facility] Comment on above: Performed By: #### C MP, LIPID #### [facility] [address] [address] [address] Angel Harding Potassium [Moles/Vol] 4.7 mmol/L Normal 3.5-5.1 [facility] Comment on above: Performed By: #### C MP, LIPID #### [facility] [address] [address] [address] Angel Harding Protein [Mass/Vol] 7.5 g/dL Normal 6.1-8.2 [facility] Comment on above: Performed By: #### C MP, LIPID #### [facility] [address] [address] [address] Angel Harding Sodium [Moles/Vol] 140 mmol/L Normal 136-145 [facility] Comment on above: Performed By: #### C MP, LIPID #### [facility] [address] [place] [address] Dr. Angel Harding Urea nitrogen [Mass/Vol] 12.0 mg/dL Normal 7.0-18.0 [facility] Comment on above: Performed By: #### C MP, LIPID #### [facility] [address] [place] [address] Dr. Angel Harding Urea nitrogen/Creatinine [Mass ratio] 14.5 mg/mg Normal [facility] Comment on above: Performed By: #### C MP, LIPID #### [facility] [address] [address] [address] Angel Harding Operative Reporton 8 Operative Report MR#: [id number] [facility] Pt. Name: Cristi Lau [facility] #: [id number] Discharge Date: Birthdate: 1975 OPERATIVE REPORTDATE OF SURGERY: 09/06/2018SURGEON: Eden Solorio, MDPREOPERATIVE DIAGNOSIS: Rectal bleeding.POSTOPERATIVE DIAGNOSIS: Right posterior mixed internal and externalhemorrhoids.FL OCEDURES:1. Excision of mixed right posterior internal and external hemorrhoids.2. Exparel was used to do a perianal block.ANESTHESIA: MAC.COMPLICATIONS: None.INDICATION FOR PROCEDURE: This is a 42-year-old male presented to [facility] with rectal pain and bleeding. Decision was [...] 07/01/2018 12:20 P NARCISO Marionate Dict: 07/01/2018/09:02 Shannon/Shyla Artis Trans: 07/01/2018 11:00 [id number] Normal [facility] POC GLUCOSE LABon 07-01-2018 Glucose mass conc 101 mg/dL High 70-[address] [facility] Comment on above: Performed By: #### [id number] ####[facility] Encounters Encounter Date Encounter Type Care Provider Facility Start: 04-20-2024 End: 04-20-2024 ambulatory SHAIKH SYMONE Not Available Start: 12-10-2023 Orders Only Shaikh Symone CAMACHO Work Phone: [facility] Comment on above: Primary hypertension (CMS/HCC) (Primary Dx); Obstructive sleep apnea Start: 01-22-2023 End: 01-23-2023 ambulatory CARMELLA RODRIGUEZ . Facility:[facility] Start: 10-24-2022 End: 10-25-[address] ROSAS STEINER . Facility:[facility] Start: 07-16-2022 End: 07-17-[address] ROSAS STEINER . Facility:[facility] Start: 04-03-2022 End: 04-04-2022 ambulatory SHAIKH Asuncion OLIVEIRA Facility: Start: 02-20-2022 End: 02-21-2022 ambulatory SHAIKH Asuncion OLIVEIRA Facility: Start: 07-01-2018 End: 07-02-2018 Patient encounter procedure EDEN SOLORIO Facility:[facility] Start: 06-08-2018 End: 06-09-2018 Patient encounter procedure DEFAULT PHYSICIAN Facility:[facility] Procedures Date Procedure Procedure Detail Performing Clinician Start: 07-01-2018 ANESTH ANORECTAL SURGERY JENNY COLUNGA Start: 07-01-2018 REMOVE BY LIGAT INT HEM GRP EDEN SOLORIO Plan of Treatment Date Care Activity Detail Author Start: 06-26-2023 Influenza vaccination Influenza Vacc ine (#1) [facility] Start: 1975 Screening for malign ant neoplasm of colon [facility] Payers Date Payer Category Payer Unknown [id number] [id number] [id number] 1975 Unknown [id number] 2.16.8 [id number] 1975 Unknown [id number] 2.16.84 [id number] 1975 Unknown [id number] 2.16.84 [id number] 1975 Unknown [id number] 2.16.84 [id number] 1975 Unknown [id number] 2.16.84 [id number] 1975 Unknown [id number] 2.16.84 [id number] 1975 Unknown [id number] 2.16.84 [id number] 1958 Unknown [id number] Unknown Social History Date Type Detail Facility Tobacco smoking stat [facility] Tobacco smoking consumption unknown [facility] Start: 1975 Sex Assigned At Not on file [facility] Gender identity Not on file [facility] are Consultation note 01-22-2023 Note Date [...] secondary to the strained patient/physician relationship. [facility] Consultation note 10-24-2022 Note Date & Type Note Facility 10-24-2022 Note CONSULTATION CONSULTATION DATE: 10/24/2022 HISTORY OF PRESENT ILLNESS: This is a 46-year-old male. 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 Historically, the patient has declined procedures that have been offered and prefers to be medically maintained. His medications include Mobic 15 mg daily, Percocet 5/325 t.i.d., tizanidine 4 mg p.r.n. and Adderall. 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 His chronic pain does not interfere with ADLs, as long as he is compliant with his medications. Lifting and early intervention specialist hours are his aggravating factors. This morning, [...] three months' time, unless otherwise indicated. [facility] Consultation note 07-16-2022 Note Date & [...] Patient is in agreement to this. [facility] Consultation note 04-03-2022 Note Date & [...] his mid upper back. 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 [facility] Signed and Approved by: STAR MOLINA . 04/10/2022 16:02:00 [facility] Evaluation note Note Date & Type Note Facility Evaluation note Diagnosis Primary hypertension (CMS/HCC)- Primary Unspecified essential hypertension Obstructive sleep apnea Obstructive sleep apnea (adult) (pediatric) documented in this encounter [facility] Summary Purpose Family History No Family History Records FoundNo Family History Records FoundNo Family History Records Found Advance Directives No Advanced Directives Records FoundNo Advanced Directives Records FoundNo Advanced Directives Records Found Additional Source Comments (unrecognized sect ion and content) No Status Records FoundNo Status Records FoundNo Status Records Found INFORMATION SOURCE (unrecogn ized section and content) DATE CREATED AUTHOR 10/21/2018 [facility] DATE CREATED AUTHOR AUTHOR'S ORGANIZ ATION 01/31/2023 [facility] DATE CREATED AUTHOR AUTHOR'S ORGANIZ ATION 04/21/2024 [facility] dical Specialists [employer] Care Teams (unrecognized sec tion and content) Artificial Teeth Inspector Relationship Specialty Start Date End Date Shaikh Oliveira MD PCP - General Internal Medicine 05/13/23 [...] BE BASED ON THE PRIMARY CLINICAL RECORDS. [facility] [employer] [facility]. provides no warranty or guarantee of the accuracy or completeness of information in this document.
== END 2024-05-26 07:41 | disposition home or self-care (01) ==
PROVIDERS: PCP Internal Medicine; Visit Provider Nurse Practitioner
DX: M47.816 Spondylosis without myelopathy or radiculopathy, lumbar region (principal); Z79.891 Long term (current) use of opiate analgesic; M43.14 Spondylolisthesis, thoracic region; M62.838 Other muscle spasm
CPT/HCPCS: G0463

== ENCOUNTER 2024-09-01 08:57 | Outpatient (OUT) | payer OTHER, SELFPAY ==
--- OUTSIDE RECORDS SUMMARY | 2024-09-01 09:10 | XMS_ITS | CCD ---
Author Organization [facility] Care Team Providers Care Deck Mechanic Name Role Phone PHYSICIAN, DEFAULT Unavailable Unavailable PHYSICIAN, DEFAULT Unavailable Unavailable EDEN SOLORIO Unavailable Unavailable EDEN SOLORIO Unavailable Unavailable SELF, REFERRED Unavailable Unavailable SELF, REFERRED Unavailable Unavailable [place] Unavailable Unavailable EDEN SOLORIO Unavailable Unavailable [place] Unavailable Unavailable JENNY COLUNGA Unavailable Unavailable FAWWAD, HAZEL H Primary Care Unavailable SYMONE HAZEL H Consulting Unavailable FASANAZ, HAZEL H Attending Unavailable SYMONE, HAZEL H Admitting Unavailable LAKSHMIPATHY ., CARMELLA Attending Sharron vailable LAKSHMIPATHY ., NARTAE Admitting Sharron vailable FAWWAD, HAZEL H Primary Care Unavailable LAKSHMIPATHY ., NARTAE Consulting Sharron vailable STEINER ., DR ROSAS [...] Unavailable Shaikh Ashby MD Primary Care Provider SHAIKH ASHBY Attending Unavailable ROSIE GUTIERREZ Attending UnavailCristi Hsu MD Primary Care Provider Rosie Gutierrez NP Unavailable Medications Current Medications Medication Drug Class(es) Dates Sig (Normalized) Sig (Original) acetaminophen 325 mg / oxyCODONE hydrochloride 5 mg oral tablet (5 sources) Opioid Agonist take 1 tablet by mouth every eight hours as needed for pain oxyCODONE-acetamin ophen (Percocet) 5-325 MG tablet Take 1 tablet by mouth every 8 (eight) hours if needed for moderate pain Active losartan potassium 100 mg oral tablet (6 sources) Angiotensin 2 Receptor Katelin Start: 04-20-2024 take 1 tablet by mouth once daily losartan (Cozaar) 100 MG tablet Indications: Primary hypertension (CMS/HCC) Take 1 tablet (100 mg) by mouth Daily 90 tablet 04/20/2024 Active Start: 09-21-2023 End: 03-09-2024 take 1 tablet by mouth in the morning losartan (Cozaar) 100 MG tablet Indications: Primary hypertension (CMS/HCC) Take 1 tablet (100 mg) by mouth in the morning. 90 tablet 0 12/10/2023 03/09/2024 Active meloxicam 15 mg oral tablet (5 sources) Nonsteroidal Anti-inflammatory Drug Start: 09-24-2023 take 1 tablet by mouth in the morning meloxicam (Mobic) 15 MG tablet Take 15 mg by mouth in the morning. 09/24/2023 Active naloxone hydrochloride 40 mg/ml nasal spray (5 sources) Opioid Antagonist Start: 08-19-2023 naloxone (Narcan) 4 mg/0.1 mL nasal spray Administer 4 mg into affected nostril(s) if needed 08/19/2023 Active polymyxin b 89139 unt/ml / trimethoprim 1 mg/ml ophthalmic solution (5 sources) Dihydrofolate Reductase Inhibitor Antibacterial, Polymyxin-class Antibacterial Start: 04-13-2023 take 1 drop(s) into the eye(s) every six hours trimethoprim-po lymyxin b (Polytrim) ophthalmic solution Administer 1 drop into both eyes every 6 (six) hours 04/13/2023 Active Completed/Discontinued Medications Medication Drug Class(es) Dates Sig (Normalized) Sig (Original) amphetamine aspartate 2.5 mg / amphetamine sulfate 2.5 mg / dextroamphetamine saccharate 2.5 mg / dextroamphetamine sulfate 2.5 mg oral tablet (18 sources) Central Nervous System Stimulant Start: 04-20-2024 End: 09-17-2024 take 1 tablet by mouth once daily amphetamine-dextro amphetamine (Adderall) 10 MG tablet Indications: Obstructive sleep apnea Take 1 tablet (10 mg) by mouth Daily Do not start before June 12, 2024. 30 tablet 06/12/2024 08/17/2024 Discontinued (Reorder) Start: 11-06-2023 End: 01-09-2024 take 1 tablet by mouth in the morning amphetamine-dextroamphetamine (Adderall) 10 MG tablet Indications: Obstructive sleep apnea Take 1 tablet (10 mg) by mouth in the morning. 30 tablet 0 12/10/2023 01/09/2024 Active Problems Active Problems Problem Classification Problem Date Documented Date Episodic/Chronic Essential hypertension (12 sources) Essential (primary) hypertension; Translations: [Essential hypertension] Onset: 07-01-2018 Chronic Other nervous system disorders (4 sources) Other chronic pain; Translations: [OTHER CHRONIC PAIN] Onset: 01-22-2023 Chronic Other nervous system disorders (4 sources) Polyneuropathy, unspecified; Translations: [POLYNEUROPATHY UNSPECIFIED] Onset: 04-03-2022 Chronic Residual codes; unclassified (10 sources) Obstructive sleep apnea syndrome; Translations: [Obstructive sleep apnea (adult) (pediatric)] Onset: 04-20-2024 12-10-2023 Chronic Residual codes; unclassified (1 source) Sleep apnea, unspecified; Translations: [SLEEP APNEA, UNSPECIFIED] Onset: 07-01-2018 Spondylosis; intervertebral disc disorders; other back problems (7 sources) Other intervertebral disc degeneration, lumbar region; Translations: [Spondylosis without myelopathy or radiculopathy, lumbar region] Onset: 07-16-2022 Chronic Substance-related disorders (5 sources) Nicotine dependence, cigarettes, uncomplicated; Translations: [Smoker] Onset: 07-01-2018 04-20-2024 Chronic Unclassified (2 sources) Unknown / UNK(Unknown) [...] disc disorders; other back problems (7 sources) Intervertebral disc disorders with radiculopathy, lumbar region; Translations: [Backache] Onset: 07-18-2022 04-20-2024 Episodic Unclassified (1 source) LOW BACK PAIN, UNSPECIFIED; Translations: [LOW BACK PAIN, UNSPECIFIED] Onset: 10-24-2022 Results Test Name Value Interpretation Reference Range Facility Drugs of abuse panel Screen (U)on 07-27-2024 Amphetamines Ql (U) Positive [facility] Barbiturates Ql (U) Negative [facility] Benzodiazepines Ql (U) Negative [facility] Benzoylecgonine Ql (U) Negative [facility] Carboxy tetrahydrocannabinol (Mec) [Mass/Mass] Negative [facility] Interpretation and review of laboratory results Abnormal [facility] Methadone (U) [Mass/Vol] Negative [facility] Methylenedioxymethamphetamin e Screen Ql (U) Negative [facility] Morphine (U) [Mass/Vol] Negative [facility] Opiates Ql (U) Negative [facility] oxyCODONE Ql (U) Positive [facility] Phencyclidine Ql (U) Negative [facility] Reference Lab Test ID Negative [facility] Tricyclic antidepressants [Mass/Vol] Negative [facility] CBC AUTO DIFFon 02-20-2022 BASO # 0.0 103/ul Normal 0.0-0.1 [facility] Comment on above: Performed By: #### C BC #### [facility] [address] [place] [address] Dr. Angel Harding Basophils/100 WBC (Bld) 0.7 % Normal 0.2-2.0 [facility] Comment on above: Performed By: #### C BC #### [facility] [address] [place] [address] Dr. Angel Harding EO # 0.2 103/ul Normal 0.0-0.7 [facility] Comment on above: Performed By: #### C BC #### [facility] [address] [place] [address] Dr. Angel Harding Eosinophils/100 WBC (Bld) 2.6 % Normal 0.9-7.0 [facility] Comment on above: Performed By: #### C BC #### [facility] [address] [place] [address] Dr. Angel Harding Erythrocyte distribution wid th (RBC) [Ratio] 12.4 % Normal 11.0-15.0 [facility] Comment on above: Performed By: #### C BC #### [facility] [address] [place] [address] Dr. Angel Harding Hematocrit (Bld) [Volume fraction] 42.2 % Normal 42.0-54.0 [facility] Comment on above: Performed By: #### C BC #### [facility] [address] [place] [address] Dr. Angel Harding Hemoglobin (Bld) [Mass/Vol] 14.1 g/dL Normal 14.0-18. 0 [facility] Comment on above: Performed By: #### C BC #### [facility] [address] [place] [address] Dr. Angel Harding IG # 0.02 10e3/ul Normal 0.00-0.03 [facility] Comment on above: Performed By: #### C BC #### [facility] [address] [place] [address] Dr. Angel Harding IG % 0.3 % Normal 0.0-0.5 [facility] Comment on above: Performed By: #### C BC #### [facility] [address] [place] [address] Dr. Angel Harding LYMPH # 2.4 103/ul Normal 1.2-3.8 [facility] Comment on above: Performed By: #### C BC #### [facility] [address] [place] [address] Dr. Angel Harding Lymphocytes/100 WBC (Bld) 39.4 % Normal 20.5-60.0 [facility] Comment on above: Performed By: #### C BC #### [facility] [address] [place] [address] Dr. Angel Harding MANUAL DIFF REQ NO Normal [facility] Comment on above: Performed By: #### C BC #### [facility] [address] [place] [address] Dr. Angel Harding MCH (RBC) [Entitic mass] 31.4 pg Normal 25.9-34.0 [facility] Comment on above: Performed By: #### C BC #### [facility] [address] [place] [address] Dr. Angel Harding MCHC (RBC) [Mass/Vol] 33.4 g/dL Normal 29.9-35.2 [facility] Comment on above: Performed By: #### C BC #### [facility] [address] [place] [address] Dr. Angel Harding MCV (RBC) [Entitic vol] 94.0 fL Normal 80.0-94.0 [facility] Comment on above: Performed By: #### C BC #### [facility] [address] [place] [address] Dr. Angel Harding MONO # 0.5 103/ul Normal 0.3-0.8 [facility] Comment on above: Performed By: #### C BC #### [facility] [address] [place] [address] Dr. Angel Harding Monocytes/100 WBC (Bld) 7.5 % Normal 1.7-12.0 [facility] Comment on above: Performed By: #### C BC #### [facility] [address] [place] [address] Dr. Angel Harding NEUT # 3.0 103/ul Normal 1.4-6.5 [facility] Comment on above: Performed By: #### C BC #### [facility] [address] [place] [address] Dr. Angel Harding Neutrophils/100 WBC (Bld) 49.5 % Normal 43.0-75.0 [facility] Comment on above: Performed By: #### C BC #### [facility] [address] [place] [address] Dr. Angel Harding Platelet mean volume (Bld) [Entitic vol] 9.7 fL Normal 9.5-13.5 [facility] Comment on above: Performed By: #### C BC #### [facility] [address] [place] [address] Dr. Angel Harding PLT 275 103/ul Normal 150-450 [facility] Comment on above: Performed By: #### C BC #### [facility] [address] [place] [address] Dr. Angel Harding RBC 4.49 106/ul Critically low 4.70-6.10 [facility] Comment on above: Performed By: #### C BC #### [facility] [address] [place] [address] Dr. Angel Harding WBC 6.1 103/ul Normal 4.0-11.0 [facility] Comment on above: Performed By: #### C BC #### [facility] [address] [place] [address] Dr. Angel Harding GLYCOHEMOGLOBIN A1Con 2021 ADA RECOMMENDATION SEE BELOW Normal [facility] Comment on above: Result Comment: ADA RECOMMENDED LIMIT 4.0 - 6.0 ADA THERAPEUTIC TARGET < 7.0 ACTION SUGGESTED > 7.0 Performed By: #### A 1C #### [facility] [address] [place] [address] Dr. Angel Harding Glucose [Mass/Vol] 117 mg/dL Normal [facility] Comment on above: Performed By: #### A 1C #### [facility] [address] [place] [address] Dr. Angel Harding HbA1c (Bld) [Mass fraction] 5.7 % Normal 4.5-6.2 [facility] Comment on above: Performed By: #### A 1C #### [facility] [address] [place] [address] Dr. Angel Harding LIPID PROFILEon 02-20-2022 CHOL-HDL RATIO NORM SEE BELOW Normal [facility] Comment on above: Result Comment: 3.3 - 4.4 LOW RISK 4.4 - 7.1 AVERAGE RISK 7.1 - 11.0 MODERATE RISK >11.0 HIGH RISK Performed By: #### C MP, LIPID #### [facility] [address] [address] [address] Angel Harding Cholesterol [Mass/Vol] 217 mg/dL Critically high <=200 [facility] Comment on above: Performed By: #### C MP, LIPID #### [facility] [address] [address] [address] Angel Harding Cholesterol in HDL [Mass/Vol] 47 mg/dL Normal 40-60 [facility] Comment on above: Performed By: #### C MP, LIPID #### [facility] [address] [address] [address] Angel Harding Cholesterol in LDL [Mass/Vol] 125.2 mg/dL Normal [facility] Comment on above: Performed By: #### C MP, LIPID #### [facility] [address] [address] [address] Angel Harding Cholesterol.total/Cholestero l in HDL [Mass ratio] 4.6 {ratio} Normal [facility] Comment on above: Performed By: #### C MP, LIPID #### [facility] [address] [address] [address] Angel Harding HDL NORMAL > or = 60 mg/dl - LOW CARDIOVASCULAR RISK <40 mg/dl - HIGH CARDIOVASCULAR RISK Normal [facility] Comment on above: Performed By: #### C MP, LIPID #### [facility] [address] [address] [address] Angel Harding LDL CALC NORMAL SEE BELOW Normal [facility] Comment on above: Result Comment: <100 mg/dl OPTIMAL 100 - 129 mg/dl NEAR OR ABOVE OPTIMAL 130 - 159 mg/dl BORDERLINE HIGH 160 - 189 mg/dl HIGH >190 mg/dl VERY HIGH Performed By: #### C MP, LIPID #### [facility] [address] [address] [address] Angel Harding Triglyceride [Mass/Vol] 224 mg/dL Critically high <=150 [facility] Comment on above: Performed By: #### C MP, LIPID #### [facility] [address] [place] [address] Dr. Angel Harding VLDL CALC 44.8 mg/dL Normal [facility] Comment on above: Performed By: #### C MP, LIPID #### [facility] [address] [place] [address] Dr. Angel Harding PROF 14(COMP METB)on 022 Albumin [Mass/Vol] 3.8 g/dL Normal 3.4-5.0 [facility] Comment on above: Performed By: #### C MP, LIPID #### [facility] [address] [place] [address] Dr. Angel Harding Albumin/Globulin [Mass ratio] 1.0 {ratio} Normal [facility] Comment on above: Performed By: #### C MP, LIPID #### [facility] [address] [place] [address] Dr. Angel Harding ALP [Catalytic activity/Vol] 91 U/L Normal 46-116 [facility] Comment on above: Performed By: #### C MP, LIPID #### [facility] [address] [place] [address] Dr. Angel Harding ALT [Catalytic activity/Vol] 66 U/L Critically high 16 -63 [facility] Comment on above: Performed By: #### C MP, LIPID #### [facility] [address] [place] [address] Dr. Angel Harding Anion gap [Moles/Vol] 13.0 mmol/L Normal [facility] Comment on above: Performed By: #### C MP, LIPID #### [facility] [address] [place] [address] Dr. Angel Harding AST [Catalytic activity/Vol] 29 U/L Normal 15-37 [facility] Comment on above: Performed By: #### C MP, LIPID #### [facility] [address] [place] [address] Dr. Angel Harding Bilirubin [Mass/Vol] 0.3 mg/dL Normal 0.2-1.0 [facility] Comment on above: Performed By: #### C MP, LIPID #### [facility] [address] [place] [address] Dr. Angel Harding Calcium [Mass/Vol] 8.6 mg/dL Normal 8.5-10.1 [facility] Comment on above: Performed By: #### C MP, LIPID #### [facility] [address] [place] [address] Dr. Angel Harding Chloride [Moles/Vol] 106 mmol/L Normal 98-107 [facility] Comment on above: Performed By: #### C MP, LIPID #### [facility] [address] [place] [address] Dr. Angel Harding CO2 [Moles/Vol] 25.7 mmol/L Normal 21.0-32.0 [facility] Comment on above: Performed By: #### C MP, LIPID #### [facility] [address] [place] [address] Dr. Angel Harding Creatinine [Mass/Vol] 0.83 mg/dL Normal 0.70-1.30 [facility] Comment on above: Performed By: #### C MP, LIPID #### [facility] [address] [place] [address] Dr. Angel Harding EGFR-AF [place] >60 Normal >=60 [facility] Comment on above: Performed By: #### C MP, LIPID #### [facility] [address] [place] [address] Dr. Angel Harding EGFR-NON AF [place] >60 Normal >=60 [facility] Comment on above: Performed By: #### C MP, LIPID #### [facility] [address] [place] [address] Dr. Angel Harding Globulin (S) [Mass/Vol] 3.7 g/dL Normal [facility] Comment on above: Performed By: #### C MP, LIPID #### [facility] [address] [place] [address] Dr. Angel Harding Glucose [Mass/Vol] 114 mg/dL Critically high 74-106 [facility] Comment on above: Performed By: #### C MP, LIPID #### [facility] [address] [place] [address] Dr. Angel Harding Potassium [Moles/Vol] 4.7 mmol/L Normal 3.5-5.1 [facility] Comment on above: Performed By: #### C MP, LIPID #### [facility] [address] [address] [address] Angel Harding Protein [Mass/Vol] 7.5 g/dL Normal 6.1-8.2 [facility] Comment on above: Performed By: #### C MP, LIPID #### [facility] [address] [address] [address] Angel Harding Sodium [Moles/Vol] 140 mmol/L Normal 136-145 [facility] Comment on above: Performed By: #### C MP, LIPID #### [facility] [address] [address] [address] Angel Harding Urea nitrogen [Mass/Vol] 12.0 mg/dL Normal 7.0-18.0 [facility] Comment on above: Performed By: #### C MP, LIPID #### [facility] [address] [place] [address] Dr. Angel Harding Urea nitrogen/Creatinine [Ma ss ratio] 14.5 mg/mg Normal [facility] Comment on above: Performed By: #### C MP, LIPID #### [facility] [address] [place] [address] Dr. Angel Harding Operative Reporton 8 Operative Report MR#: [id number] [facility] Pt. Name: Cristi Honeycutt Room #: 0C Discharge Date: Birthdate: 1975 OPERATIVE REPORTDATE OF SURGERY: 07/01/2018SURGEON: DEJUAN ArtisREOPERATIVE DIAGNOSIS: Rectal bleeding.POSTOPERAT PATRICIA DIAGNOSIS: Right posterior mixed internal and externalhemorrhoids .PROCEDURES:1. Excision of mixed right posterior internal and external hemorrhoids.2. Exparel was used to do a perianal block.ANESTHESIA: MAC.COMPLICATIONS: None.INDICATION FOR PROCEDURE: This is a 42-year-old male presented to [facility] with rectal pain and bleeding. Decision was made to bring him tothe operating room for exam under anesthesia.DESCRIPT ION OF PROCEDURE: Preoperatively, consent was obtained. Thepatient [...] was taken topostanesthesia care unit in stable condition.Farida marmolejo Signed by:Eden Solorio MD 07/01/2018 12:20 P S ian Solorio, MDDate Dict: 07/01/2018/09:02 A/NARCISO Artisate Trans: 07/01/2018 11:00 A/[id number] Normal [facility] POC GLUCOSE LABon 07-01-2018 Glucose mass conc 101 mg/dL High 70-100 [facility] Comment on above: Performed By: #### [id number] ####[facility] Vital Signs Date Time Vital Sign Value Performing Clinician Emmy maynard 07-27-2024 08:20-0400 Body height 198.1 cm Rosie Gutierrez NP Work Phone: [facility] 07-27-2024 08:20-0400 Body mass index (BMI) [Ratio] 28.27 kg/m2 Rosie Gutierrez NP Work Phone: [facility] 07-27-2024 08:20-0400 Body temperature 96.3 [degF] Rosie Gutierrez PROPERTY UNDERWRITER Work Phone: [facility] 07-27-2024 08:20-0400 Body weight 110.95 kg Rosie Gutierrez PROPERTY UNDERWRITER Work Phone: [facility] 07-27-2024 08:20-0400 Diastolic blood pressure 60 mm[Hg] Rosie Wattersk PROPERTY UNDERWRITER Work Phone: [facility] 07-27-2024 08:20-0400 Heart rate 87 /min Rosie Wattersk PROPERTY UNDERWRITER Work Phone: [facility] 07-27-2024 08:20-0400 Respiratory rate 16 /min Rosie Wattersk PROPERTY UNDERWRITER Work Phone: [facility] 07-27-2024 08:20-0400 SaO2% (BldA) [Mass fraction] 98 % Rosie Wattersk PROPERTY UNDERWRITER Work Phone: [facility] 07-27-2024 08:20-0400 Systolic blood pressure 138 mm[Hg] Rosie Wattersk PROPERTY UNDERWRITER Work Phone: [facility] Encounters Encounter Date Encounter Type Care Provider Facility Start: 08-17-2024 End: 08-18-2024 Refill Amy Huerta MA [facility] Comment on above: Obstructive sleep ap lionel Start: 07-27-2024 End: 07-27-2024 Bamboo flowsheet Rosie Wattersk PROPERTY UNDERWRITER Work Phone: [facility] Start: 07-27-2024 End: 07-27-2024 Bamboo flowsheet Rosie Lucianotrick PROPERTY UNDERWRITER Work Phone: [facility] Start: 07-27-2024 End: 07-27-2024 Office outpatient visit 15 minutes Rosie Wattersk PROPERTY UNDERWRITER Work Phone: [facility] Comment on above: Primary hypertension (CMS/HCC) (Primary Dx); SILVIA (obstructive sleep apnea); Back pain of thoracolumbar region; Obstructive sleep apnea Start: 07-27-2024 End: 07-27-2024 ambulatory ROSIE GUTIERREZ Not Available Start: 04-20-2024 Patient encounter status Adilia baljeet Gutierrez PROPERTY UNDERWRITER Work Phone: [facility] Start: 04-20-2024 End: 04-20-2024 ambulatory SHAIKH SYMONE Not Available Start: 12-10-2023 Orders Only Shaikh Symone CAMACHO Work Phone: [facility] Comment on above: Primary hypertension (CMS/HCC) (Primary Dx); Obstructive sleep apnea Start: 01-22-2023 End: 01-23-2023 ambulatory CARMELLA RODRIGUEZ . Facility: Start: 10-24-2022 End: 10-25-[address] ROSAS STEINER . Facility: Start: 07-16-2022 End: 07-17-[address] ROSAS STEINER . Facility: Start: 04-03-2022 End: 04-04-2022 ambulatory SHAIKH Asuncion ASHBY Facility: Start: 02-20-2022 End: 02-21-2022 ambulatory SHAIKH Asuncion ASHBY Facility: Start: 07-01-2018 End: 07-02-2018 Patient encounter procedure EDEN SOLORIO Facility:[facility] Start: 06-08-2018 End: 06-09-2018 Patient encounter procedure DEFAULT PHYSICIAN Facility:[facility] Procedures Date Procedure Procedure Detail Performing Clinician Start: 07-27-2024 Drug test prsmv read direct optical obs pr date Rosie Gutierrez PROPERTY UNDERWRITER Work Phone: Start: 07-01-2018 ANESTH ANORECTAL SURGERY JENNY COLUNGA Start: 07-01-2018 REMOVE BY LIGAT INT HEM GRP EDEN SOLORIO Start: 05-21-2018 Colonoscopy Rosie ramos PROPERTY UNDERWRITER Work Phone: Plan of Treatment Date Care Activity Detail Author Start: 05-21-2028 Screening for malign ant neoplasm of colon [facility] Start: 01-25-2025 End: 01-25-2025 Patient encounter procedure 01/25/2025 8:30 AM EDT Office Visit [facility] [address] [place] [id number] Rosie Gutierrez, SHIV [address] [place] [phone] [facility] Start: 07-27-2024 End: 07-27-2024 Patient encounter procedure 07/27/2024 8:30 AM EDT Office Visit [facility] [address] [place] [address] Rosie Gutierrez, SHIV [address] [place] [address] Primary hypertension (CMS/HCC) (Primary Dx); SILVIA (obstructive sleep apnea); Back pain of thoracolumbar region [facility] Comment on above: Primary hypertension (CMS/HCC) (Primary Dx); SILVIA (obstructive sleep apnea); Back pain of thoracolumbar region Start: 06-26-2024 Influenza vaccination Influenza Vacc ine (#1) [facility] Start: 06-26-2023 Influenza vaccination Influenza Vacc ine (#1) [facility] Start: 1975 Screening for malign ant neoplasm of colon [facility] Immunizations Immunization Date Immunization Notes Care Provider Evelyn mars 06-08-2019 tetanus toxoid, redu monica diphtheria toxoid, and acellular pertussis vaccine, adsorbed Rosie Gutierrez PROPERTY UNDERWRITER Work Phone: [facility] Payers Date Payer Category Payer Private Health Insurance [id number] 1975 Unknown [id number] [id number] 1976 Unknown [id number] 2.16.8 [id number] 1976 Unknown [id number] 2.16.84 [id number] 1976 Unknown [id number] 2.16.84 [id number] 1976 Unknown [id number] 2.16.84 [id number] 1976 Unknown [id number] 2.16.84 [id number] 1976 Unknown [id number] 2.16.84 [id number] 1976 Unknown [id number] 2.16.84 [id number] 1976 Unknown [id number] 2.16.84 [id number] 1959 Unknown [id number] Unknown Social History Date Type Detail Facility Tobacco smoking stat [facility] Tobacco smoking consumption unknown [facility] Start: 1975 Sex Assigned At Not on file [facility] Start: 04-20-2024 End: 07-27-2024 Gender identity Not on file [facility] Start: 04-20-2024 Tobacco smoking stat [facility] Smokes tobacco daily [facility] History of tobacco use Cigarette Smoker [facility] History of tobacco use Passive smoker [facility] Start: 04-20-2024 Tobacco use and exposure User of smo keless tobacco [facility] History of tobacco use Chews Tobacco [facility] Start: 04-20-2024 End: 07-27-2024 Alcoholic beverage intake Current drinker of alcohol (finding) [facility] Start: 04-20-2024 End: 07-27-2024 History of Social function [facility] Telephone encounter Note 08-17-2024 Telephone Encounter - Amy Huerta MA - 08/17/2024 3:36 PM EDT Note Date & Type Note Facility 08-17-2024 Telephone encount er Note P requesting a refill on his Adderall. MIMI:07/27/2024 NOV:01/25/2025 [facility] Note 08-17-2024 Telephone Encounter - Amy Huerta MA - 08/17/2024 3:36 PM EDT Note Date & Type Note Facility 08-17-2024 Miscellaneous Notes Formattin g of this note might be different from the original. P requesting a refill on his Adderall. MIMI:07/27/2024 NOV:01/25/2025 documented in this encounter [facility] History of Present illness Narrative 07-27-2024 Rosie Gutierrez NP - 07/27/2024 8:50 AM EDMarek Gutierrez, SHIV - 07/27/2024 8:49 AM Yuri Gutierrez, SHIV - 07/27/2024 8:48 AM Yuri Gutierrez, SHIV - 07/27/2024 8:30 AM EDT Note Date & Type Note Facility 07-27-2024 History of Presen t illness Narrative Associated Problem(s): Back pain of thoracolumbar region Follows PM; Taking Percocet 5/325mg TID. Feels symptoms are well controlled with regimen. Associated Problem(s): Primary hypertension (CMS/HCC) Currently taking Losartan 100mg Does not check BP at home; BP above goal in office. Given BP log, advised pt to record BP and bring log back with them to next visit. Denies orthostatic changes, dizziness, cough, shortness of breath, swelling in extremities. Continue current regimen. Associated Problem(s): SILVIA (obstructive sleep apnea) Does not wear CPAP, never has. Is currently taking 10mg Adderall daily; Feels medication helps with daytime drowsiness. OARRS reviewed. CSA signed. Continue current regimen. Images from the original note were not included. Subjective Patient ID: Cristi Honeycutt is a 48 y.o. male who presents for No chief complaint on file.. HPI HTN: Currently taking Losartan 100mg Does not check BP at home; Denies orthostatic changes, dizziness, cough, shortness of breath, swelling in extremities. Continue current regimen. Given BP log, advised pt to record BP and bring log back with them to next visit. SILVIA: Does not wear CPAP, never has. Is currently taking 10mg Adderall daily; Feels medication helps with daytime drowsiness. OARRS reviewed. CSA signed. Continue current regimen. Back Pain: Follows PM; Taking Percocet 5/325mg TID. Feels symptoms are well controlled with regimen. Review of Systems Constitutional: Negative for activity change, appetite change, chills, diaphoresis, fatigue, fever and unexpected weight change. HENT: Negative for congestion, ear pain, rhinorrhea, sinus pressure, sinus pain, sneezing, sore throat, trouble swallowing and voice change. Eyes: Negative for visual disturbance. Respiratory: Negative for cough, chest tightness, shortness of breath and wheezing. Cardiovascular: Negative for chest pain, palpitations and leg swelling. Gastrointestinal: Negative for abdominal distention, abdominal pain, blood in stool, constipation, diarrhea and vomiting. Genitourinary: Negative for decreased urine volume, dysuria, flank pain, frequency, hematuria and urgency. Musculoskeletal: Negative for arthralgias, gait problem, joint swelling and myalgias. Skin: Negative for rash. Neurological: Negative for dizziness, tremors, syncope, weakness, light-headedness and headaches. Psychiatric/Behavioral: Negative for decreased concentration and suicidal ideas. The patient is not nervous/anxious. Hematological: Does not bruise/bleed easily. Endocrine: Negative for cold intolerance, heat intolerance, polydipsia, polyphagia and polyuria. Objective Physical Exam Vitals reviewed. Constitutional: Appearance: Normal appearance. HENT: Head: Normocephalic and atraumatic. Right Ear: Tympanic membrane normal. Left Ear: Tympanic membrane normal. Nose: Nose normal. Mouth/Throat: Mouth: Mucous membranes are moist. Pharynx: Oropharynx is clear. Eyes: Pupils: Pupils are equal, round, and reactive to light. Cardiovascular: Rate and Rhythm: Normal rate and regular rhythm. Pulses: Normal pulses. Heart sounds: Normal heart sounds. Pulmonary: Effort: Pulmonary effort is normal. Breath sounds: Normal breath sounds. Abdominal: General: Abdomen is flat. Bowel sounds are normal. Palpations: Abdomen is soft. Musculoskeletal: General: Normal range of motion. Cervical back: Normal range of motion. Skin: General: Skin is warm and dry. Capillary Refill: Capillary refill takes less than 2 seconds. Neurological: General: No focal deficit present. Mental Status: He is alert and oriented to person, place, and time. Psychiatric: Mood and Affect: Mood normal. Behavior: Behavior normal. Assessment/Plan Problem List Items Addressed This Visit Back pain of thoracolumbar region Follows PM; Taking Percocet 5/325mg TID. Feels symptoms are well controlled with regimen. Primary hypertension (CMS/HCC) - Primary Currently taking Losartan 100mg Does not check BP at home; BP above goal in office. Given BP log, advised pt to record BP and bring log back with them to next visit. Denies orthostatic changes, dizziness, cough, shortness of breath, swelling in extremities. Continue current regimen. SILVIA (obstructive sleep apnea) Does not wear CPAP, never has. Is currently taking 10mg Adderall daily; Feels medication helps with daytime drowsiness. OARRS reviewed. CSA signed. Continue current regimen. Other Visit Diagnoses Obstructive sleep apnea documented in this encounter [facility] Consultation note 01-22-2023 Note Date & Type [...] the strained patient/physician relationship. [facility] Consultation note 10-24-2022 Note Date & Type Note Facility 10-24-2022 Note CONSULTATION CONSULTATION DATE: 10/24/2022 HISTORY OF PRESENT ILLNESS: This is a 46-year-old male. He is a custodial patient of our clinic, being seen for a three month follow up for chronic lower back pain. Historically, the patient has declined procedures that have been offered and prefers to be medically maintained. His medications include Mobic 15 mg daily, Percocet 5/325 t.i.d., tizanidine 4 mg p.r.n. and Adderall. 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 His chronic pain does not interfere with ADLs, as long as he is compliant with his medications. 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 This morning, [...] time, unless otherwise indicated. [facility] Consultation note 07-16-2022 Note Date [...] in agreement to this. [facility] Consultation note 04-03-2022 Note Date [...] mid upper back. 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 [facility] Signed and Approved by: STAR MOLINA . 04/10/2022 16:02:00 [facility] Evaluation note Note Date & Type Note Facility Evaluation note Diagnosis Primary hypertension (CMS/HCC)- Primary Unspecified essential hypertension Obstructive sleep apnea Obstructive sleep apnea (adult) (pediatric) documented in this encounter [facility] Evaluation note Note Date & Type Note Facility Evaluation note Diagnosis Primary hypertension (CMS/HCC)- Primary Unspecified essential hypertension SILVIA (obstructive sleep apnea) Obstructive sleep apnea (adult) (pediatric) Back pain of thoracolumbar region Obstructive sleep apnea Obstructive sleep apnea (adult) (pediatric) documented in this encounter [facility] Evaluation note Note Date & Type Note Facility Evaluation note Diagnosis SILVIA (obstructive sleep apnea)- Primary Obstructive sleep apnea (adult) (pediatric) Primary hypertension (CMS/HCC) Unspecified essential hypertension Back pain of thoracolumbar region Current smoker Wellness examination Obstructive sleep apnea Obstructive sleep apnea (adult) (pediatric) Primary hypertension (CMS/HCC)- Primary Unspecified essential hypertension SILVIA (obstructive sleep apnea) Obstructive sleep apnea (adult) (pediatric) Back pain of thoracolumbar region Obstructive sleep apnea Obstructive sleep apnea (adult) (pediatric) Obstructive sleep apnea Obstructive sleep apnea (adult) [...] and content) DATE CREATED AUTHOR 10/21/2018 [facility] DATE CREATED AUTHOR AUTHOR'S ORGANIZ ATION 01/31/2023 [facility] DATE CREATED AUTHOR AUTHOR'S ORGANIZ ATION 07/28/2024 [facility] dical Specialists EPIC Care Teams (unrecognized sec tion and content) Deck Mechanic Relationship Specialty Start Date End Date Shaikh Ashby MD PCP - General Internal Medicine 05/13/23 Deck Mechanic Relationship Specialty Start Date End Date Cristi Crisostomo MD [address] [place] [address] PCP - General Family Medicine 06/07/24 Rosie Gutierrez NP [address] [place] [address] Nurse Practitioner Family Medicine 06/07/24 Deck Mechanic Relationship Specialty Start Date End Date Cristi Crisostomo MD [address] [place] [phone] PCP - General Family Medicine 06/07/24 Rosie Gutierrez NP [address] [place] [address] Nurse Practitioner Family Medicine 06/07/24 Deck Mechanic Relationship Specialty Start Date End Date Cristi Crisostomo MD [address] [place] [phone] PCP - General Family Medicine 06/07/24 Rosie Gutierrez NP [address] [place] [address] Nurse Practitioner Family Medicine 06/07/24 Reason for Visit (unrecogniz ed section and content) Reason Comments Med Refill Reason Onset Date Comments Med Refill 08/17/2024 FOR RECORDS PERTAINING TO PATIENTS WHO ARE [...] BE BASED ON THE PRIMARY CLINICAL RECORDS. [employer] [email or web address] provides no warranty or guarantee of the accuracy or completeness of information in this document.
--- NOTE | 2024-09-01 09:19 | P.CN_ITS ---
Consult Note: HPI Data of Consult Patient: known to practice within the last 3 years Requesting Physician: Emma Albert NP Primary Care Provider: LUIS CARLOS TORREZ Consult Narrative Reason for consult: f/u Narrative: Cristi Honeycutt a 48 year old male presents for evaluation and management of chronic back pain, bilateral knee pain, and left wrist pain. Today rating pain 3/10, reports it gets up to a 10/10 at times. Patient reports pain is well controlled since last visit and he continues to be active with work. Pain increased with long periods of sitting and improved with activity. Patient continues to report he cannot afford imaging, PT, injection therapy. Patient finds no improvement with HEP and physical labor at home. Patient continues to report functional improvement and benefit from current medication regimen. Reports percocet use TID PRN but does require TID daily. Denies side effects. cc:: CC: Emma Albert NP Review of Systems ROS Status of ROS 10 or more systems reviewed and unremark able except as noted in history and below Musculoskeletal Reports: back pain, extremity pain and joint pain Meds Home Medications and Allergies Home Medications ?Medication ?Instructions ?Recorded ?Confirmed ?Type dextroamphetamine-amphetamine 10 10 mg PO DAILY 05/14/23 05/14/23 History mg tablet (Adderall) losartan 100 mg tablet 100 mg PO DAILY 05/14/23 05/14/23 History tizanidine 4 mg tablet 8 mg PO BEDTIME PRN muscle spasm 05/14/23 05/14/23 History naloxone 4 mg/actuation nasal 1 spray intranasal Q3M PRN opioid 08/19/23 Rx spray (Narcan) overdose #2 ea oxycodone-acetaminophen 5 mg-325 1 tab PO TID PRN pain #80 tabs 03/23/24 Rx mg tablet (Percocet) meloxicam 15 mg tablet 15 mg PO DAILY #30 tabs 04/25/24 Rx tizanidine 4 mg tablet 8 mg (2 x 4 mg) PO BEDTIME PRN 05/26/24 Rx muscle spasticity #60 tabs oxycodone-acetaminophen 5 mg-325 See Rx Instructions .Route 06/28/24 Rx mg tablet (Percocet) .COMPLEX PRN pain #80 tabs oxycodone-acetaminophen 5 mg-325 See Rx Instructions .Route 07/28/24 Rx mg tablet (Percocet) .COMPLEX PRN pain #80 tabs oxycodone-acetaminophen 5 mg-325 1 tab PO TID PRN pain #90 tabs 08/26/24 Rx mg tablet (Percocet) Allergies Allergy/AdvReac Type Severity Reaction Status Date / Time No Known Drug Allergies Allergy Verified 05/14/23 09:27 Exam Constitutional Documenting provider has reviewed patient's vital signs: yes Common normals: no apparent distress, oriented x3, healthy appearing, alert and well nourished General appearance: cooperative HENMT Common normals: normocephalic, hearing grossly normal bilaterally and moist oral mucous membranes Head and scalp: normocephalic Eye Common normals: PERRL Pupil: PERRL Neck & C-Spine Common normals: full ROM General: normal visual inspection Chest Common normals: inspection of chest normal Respiratory Common normals: normal respiratory effort, no retractions and no use of accessory muscles Back & Pelvis Thoracic spine/upper back: ROM limited and pain with ROM Lumbar spine/lower back: ROM limited, pain with ROM and straight leg raise negative bilaterally Sacroiliac joints: SI joints normal Other: palpable muscle spasms throughout back positive facet loading lumbar spine worse on left than right Extremity Common normals: normal to inspection and full ROM Right lower extremity: knee joint Left lower extremity: knee joint Other: mild edema, no instability left wrist positive phalens and finklestein Neuro Common normals: oriented x3, CN's II-XII intact bilaterally, moves all extremities, no focal motor deficits, no sensory deficits noted and deep tendon reflexes 2+ bilaterally Sensorium/orientation: alert Motor exam: strength 5/5 throughout and no movement abnormalities noted Psych Common normals: mental status grossly normal, thought process normal, cooperative, affect normal, speech normal and activity/motor behavior normal Speech: normal speech Thought process: normal thought process Assessment and Plan Assessment and Plan (1) Lumbar spondylosis: (2) Chronic prescription opiate use: (3) Muscle spasm: (4) Spondylolysis, thoracic region: (5) Carpal tunnel syndrome of left wrist: (6) Left wrist pain: (7) Lumbar stenosis with neurogenic claudication: Plan continue percocet 5-325mg TID PRN moderate to severe pain 80 tabs/month, continues to report functional improvement. continue mobic 15mg daily and PRN tizanidine. denies side effects from medication regimen continue heat/ice PRN continue HEP as tolerated cannot afford PT, xrays, or injection therapy. declining further workup for left wrist pain/CTS narcan declined by pt f/u 3 months, sooner if needed
== END 2024-09-01 08:58 | disposition home or self-care (01) ==
PROVIDERS: Visit Provider Nurse Practitioner
DX: M47.816 Spondylosis without myelopathy or radiculopathy, lumbar region (principal); Z79.891 Long term (current) use of opiate analgesic; M62.838 Other muscle spasm; M47.814 Spondylosis without myelopathy or radiculopathy, thoracic region; G56.02 Carpal tunnel syndrome, left upper limb; M25.532 Pain in left wrist; M48.062 Spinal stenosis, lumbar region with neurogenic claudication
CPT/HCPCS: G0463

== ENCOUNTER 2024-12-13 14:41 | Outpatient (OUT) | payer OTHER, SELFPAY ==
--- NOTE | 2024-12-13 | CONS_ITS ---
CONSULTATION DATE: 12/13/2024 TO: Cristi Crisostomo M.D. HISTORY: Patient returns today complaining of pain in his knees bilaterally, as well as the bilateral lower back. He reports the lower back pain is worse than his knee pain, and it is worse in his left lower back than the right side. He rates it overall as 5-6/10 pain, sharp in nature. He is a fairly poor historian, but reports the pain is significantly increased with activities such as lifting maneuvers, pushing/pulling maneuvers. He feels most comfortable in the semi-recumbent position. Denies any change in bowel and bladder habits or new sensorimotor changes in the lower extremities. CURRENT MEDICATION: Includes Percocet 5 mg pills, one t.i.d. p.r.n. and tizanidine 8 mg q. h. p.r.n. His TAVON on today?s visit is 24%. EXAMINATION: Notable for the patient having no clinical radiculopathy or myelopathy involving his lower extremities. Patient had a moderate amount of pain with facet joint loading maneuvers on the left side from L4-S1, with no appreciable myofascial spasm of the lumbar paravertebral muscles. RECOMMENDATIONS: Based on his examination, I have recommended he undergo lumbosacral spine flexion/extension films with PA and lateral views. At this time, it is hard to justify patient being on senior living short acting opioids for his current condition. I do not feel, at this point, it would be appropriate, would warrant further workup to see if there is an etiology for his persistent and significant lower back pain that would warrant the use of an opioid. I have discussed with the patient his other options, to wean him off the opioid and avoid a workup, and the patient refers to significant financial constraints for undergoing such a workup. He is to contact our office and will extend updates on his treatment decisions and we will follow up accordingly. As part of providing excellent, safe, comprehensive care, the following was completed at our patient's visit: 1. A medication reconciliation and review to ensure accurate knowledge of current/active medications, including asking our patients to inform us about any [id number] medications or herbal remedies/nutritional supplements/alternative remedies. 2. A review to specifically ensure our patients have had annual screening for: elevated body mass index (BMI, see intake chart for exact total), tobacco use, screening for depression, and screening for unhealthy alcohol use. When screening is concerning, patients are provided with education and the specific recommendation to discuss the concerning health issue and treatment options with their primary care provider. ROBERTO CARLOS
--- OUTSIDE RECORDS SUMMARY | 2024-12-13 14:49 | XMS_ITS | CCD ---
Author Organization [facility] Care Team Providers Care Tap Builder Name Role Phone PHYSICIAN, DEFAULT Unavailable Unavailable PHYSICIAN, DEFAULT Unavailable Unavailable EDEN SOLORIO Unavailable Unavailable EDEN SOLORIO Unavailable Unavailable SELF, REFERRED Unavailable Unavailable SELF, REFERRED Unavailable Unavailable SD Unavailable Unavailable EDEN SOLORIO Unavailable Unavailable SD Unavailable Unavailable JENNY COLUNGA Unavailable Unavailable FAWWAD, [...] / oxyCODONE hydrochloride 5 mg oral tablet (10 sources) Opioid Agonist take 1 tablet by mouth every eight hours as needed for pain oxyCODONE-acetami nophen (Percocet) 5-325 MG tablet Take 1 tablet by mouth every 8 (eight) hours if needed for moderate pain Active amphetamine aspartate 2.5 mg / amphetamine sulfate 2.5 mg / dextroamphetamine saccharate 2.5 mg / dextroamphetamine sulfate 2.5 mg oral tablet (20 sources) Central Nervous System Stimulant Start: 10-26-2024 End: 11-25-2024 take 1 tablet by mouth once daily amphetamine-dextr oamphetamine (Adderall) 10 MG tablet Indications: Obstructive sleep apnea Take 1 tablet (10 mg) by mouth Daily 30 tablet 10/26/2024 11/25/2024 Active Start: 09-21-2024 End: 10-24-2024 take 1 tablet by mouth once daily amphetamine-dextroamphetamine (Adderall) 10 MG tablet Indications: Obstructive sleep apnea Take 1 tablet (10 mg) by mouth Daily 30 tablet 09/21/2024 10/24/2024 Discontinued (Reorder) Start: 04-20-2024 End: 09-19-2024 take 1 tablet by mouth once daily amphetamine-dextroamphetamine (Adderall) 10 MG tablet Indications: Obstructive sleep apnea Take 1 tablet (10 mg) by mouth Daily Do not start before May 13, 2024. 30 tablet 05/13/2024 07/18/2024 Discontinued (Reorder) Start: 11-06-2023 End: 01-09-2024 take 1 tablet by mouth in the morning amphetamine-dextroamphetamine (Adderall) 10 MG tablet Indications: Obstructive sleep apnea Take 1 tablet (10 mg) by mouth in the morning. 30 tablet 0 12/10/2023 01/09/2024 Active losartan potassium 100 mg oral tablet (12 sources) Angiotensin 2 Receptor Katelin Start: 10-11-2024 take 1 tablet by mouth once daily in the morning losartan (Cozaar) 100 MG tablet Indications: Primary hypertension (CMS/HCC) TAKE 1 TABLET BY MOUTH EVERY DAY IN THE MORNING 90 tablet 10/11/2024 Active Start: 04-20-2024 End: 10-11-2024 take 1 tablet by mouth once daily losartan (Cozaar) 100 MG tablet Indications: Primary hypertension (CMS/HCC) Take 1 tablet (100 mg) by mouth Daily 90 tablet 04/20/2024 10/11/2024 Discontinued Start: 09-21-2023 End: 03-09-2024 take 1 tablet by mouth in the morning losartan (Cozaar) 100 MG tablet Indications: Primary hypertension (CMS/HCC) Take 1 tablet (100 mg) by mouth in the morning. 90 tablet 0 12/10/2023 03/09/2024 Active meloxicam 15 mg oral tablet (10 sources) Nonsteroidal Anti-inflammatory Drug Start: 09-24-2023 take 1 tablet by mouth in the morning meloxicam (Mobic) 15 MG tablet Take 15 mg by mouth in the morning. 09/24/2023 Active naloxone hydrochloride 40 mg/ml nasal spray (10 sources) Opioid Antagonist Start: 08-19-2023 naloxone (Narcan) 4 mg/0.1 mL nasal spray Administer 4 mg into affected nostril(s) if needed 08/19/2023 Active polymyxin b 60692 unt/ml / trimethoprim 1 mg/ml ophthalmic solution (10 sources) Dihydrofolate Reductase Inhibitor Antibacterial, Polymyxin-class Antibacterial Start: 04-13-2023 take 1 drop(s) into the eye(s) every six hours trimethoprim-po lymyxin b (Polytrim) ophthalmic solution Administer 1 drop into both eyes every 6 (six) hours 04/13/2023 Active Problems Active Problems Problem Classification Problem Date Documented Date Episodic/Chronic Essential hypertension (18 sources) Essential (primary) hypertension; Translations: [Essential hypertension] Onset: 07-01-2018 Chronic Other nervous system disorders (4 sources) Other chronic pain; Translations: [OTHER CHRONIC PAIN] Onset: 01-22-2023 Chronic Other nervous system disorders (4 sources) Polyneuropathy, unspecified; Translations: [POLYNEUROPATHY UNSPECIFIED] Onset: 04-03-2022 Chronic Residual codes; unclassified (18 sources) Obstructive sleep apnea syndrome; Translations: [Obstructive sleep apnea (adult) (pediatric)] Onset: 04-20-2024 12-10-2023 Chronic Residual codes; unclassified (1 source) Sleep apnea, unspecified; Translations: [SLEEP APNEA, UNSPECIFIED] Onset: 07-01-2018 Spondylosis; intervertebral disc disorders; other back problems (7 sources) Other intervertebral disc degeneration, lumbar region; Translations: [Spondylosis without myelopathy or radiculopathy, lumbar region] Onset: 07-16-2022 Chronic Substance-related disorders (10 sources) Nicotine dependence, cigarettes, uncomplicated; Translations: [Smoker] [...] Spondylosis; intervertebral disc disorders; other back problems (12 sources) Intervertebral disc disorders with radiculopathy, lumbar [...] 02-20-2022 BASO # 0.0 103/ul Normal 0.0-0.1 [facility] Comment on above: Performed By: #### C BC #### [facility] [address] [address] [address] Angel Harding Basophils/100 WBC (Bld) 0.7 % Normal 0.2-2.[address] [facility] Comment on above: Performed By: #### C BC #### [facility] [address] [place] [address] Dr. Angel Harding EO # 0.2 103/ul Normal 0.0-0.7 [facility] Comment on above: Performed By: #### C BC #### [facility] [address] [place] [address] Dr. Angel Harding Eosinophils/100 WBC (Bld) 2.6 % Normal 0.9-7.0 [facility] Comment on above: Performed By: #### C BC #### [facility] [address] [place] [address] Dr. Angel Harding Erythrocyte distribution wid th (RBC) [Ratio] 12.4 % Normal 11.0-15.0 [facility] Comment on above: Performed By: #### C BC #### [facility] [address] [place] [address] Dr. Angel Harding Hematocrit (Bld) [Volume fraction] 42.2 % Normal 42.0-54.0 [facility] Comment on above: Performed By: #### C BC #### [facility] [address] [place] [address] Dr. Angel Harding Hemoglobin (Bld) [Mass/Vol] 14.1 g/dL Normal 14.0-18. 0 [facility] Comment on above: Performed By: #### C BC #### [facility] [address] [place] [address] Dr. Angel Harding IG # 0.02 10e3/ul Normal 0.00-0.03 [facility] Comment on above: Performed By: #### C BC #### [facility] [address] [place] [address] Dr. Angel Harding IG % 0.3 % Normal 0.0-0.5 [facility] Comment on above: Performed By: #### C BC #### [facility] [address] [place] [address] Dr. Angel Harding LYMPH # 2.4 103/ul Normal 1.2-3.8 [facility] Comment on above: Performed By: #### C BC #### [facility] [address] [place] [address] Dr. Angel Harding Lymphocytes/100 WBC (Bld) 39.4 % Normal 20.5-60.0 [facility] Comment on above: Performed By: #### C BC #### [facility] [address] [place] [address] Dr. Angel Harding MANUAL DIFF REQ NO Normal [facility] Comment on above: Performed By: #### C BC #### [facility] [address] [place] [address] Dr. Angel Harding MCH (RBC) [Entitic mass] 31.4 pg Normal 25.9-34.0 [facility] Comment on above: Performed By: #### C BC #### [facility] [address] [place] [address] Dr. Angel Harding MCHC (RBC) [Mass/Vol] 33.4 g/dL Normal 29.9-35.2 [facility] Comment on above: Performed By: #### C BC #### [facility] [address] [place] [address] Dr. Angel Harding MCV (RBC) [Entitic vol] 94.0 fL Normal 80.0-94.0 [facility] Comment on above: Performed By: #### C BC #### [facility] [address] [place] [address] Dr. Angel Harding MONO # 0.5 103/ul Normal 0.3-0.8 [facility] Comment on above: Performed By: #### C BC #### [facility] [address] [place] [address] Dr. Angel Harding Monocytes/100 WBC (Bld) 7.5 % Normal 1.7-12.[address] [facility] Comment on above: Performed By: #### C BC #### [facility] [address] [place] [address] Dr. Angel Harding NEUT # 3.0 103/ul Normal 1.4-6.5 [facility] Comment on above: Performed By: #### C BC #### [facility] [address] [place] [address] Dr. Angel Harding Neutrophils/100 WBC (Bld) 49.5 % Normal 43.0-75.0 [facility] Comment on above: Performed By: #### C BC #### [facility] [address] [place] [address] Dr. Angel Harding Platelet mean volume (Bld) [Entitic vol] 9.7 fL Normal 9.5-13.5 [facility] Comment on above: Performed By: #### C BC #### [facility] [address] [place] [address] Dr. Angel Harding PLT 275 103/ul Normal 150-450 [facility] Comment on above: Performed By: #### C BC #### [facility] [address] [place] [address] Dr. Angel Harding RBC 4.49 106/ul Critically low 4.70-6.10 [facility] Comment on above: Performed By: #### C BC #### [facility] [address] [place] [address] Dr. Angel Harding WBC 6.1 103/ul Normal 4.0-11.0 [facility] Comment on above: Performed By: #### C BC #### [facility] [address] [place] [address] Dr. Angel Harding GLYCOHEMOGLOBIN A1Con 2021 ADA RECOMMENDATION SEE BELOW Normal [facility] Comment on above: Result Comment: ADA RECOMMENDED LIMIT 4.0 - 6.0 ADA THERAPEUTIC TARGET < 7.0 ACTION SUGGESTED > 7.0 Performed By: #### A 1C #### [facility] [address] [address] [address] Angel Harding Glucose [Mass/Vol] 117 mg/dL Normal [facility] Comment on above: Performed By: #### A 1C #### [facility] [address] [address] [address] Angel Harding HbA1c (Bld) [Mass fraction] 5.7 % Normal 4.5-6.2 [facility] Comment on above: Performed By: #### A 1C #### [facility] [address] [place] [address] Dr. Angel Harding LIPID PROFILEon 02-20-2022 CHOL-HDL RATIO NORM SEE BELOW Normal [facility] Comment on above: Result Comment: 3.3 - 4.4 LOW RISK 4.4 - 7.1 AVERAGE RISK 7.1 - 11.0 MODERATE RISK >11.0 HIGH RISK Performed By: #### C MP, LIPID #### [facility] [address] [place] [address] Dr. Angel Harding Cholesterol [Mass/Vol] 217 mg/dL Critically high <=200 [facility] Comment on above: Performed By: #### C MP, LIPID #### [facility] [address] [place] [address] Dr. Angel Harding Cholesterol in HDL [Mass/Vol] 47 mg/dL Normal 40-60 [facility] Comment on above: Performed By: #### C MP, LIPID #### [facility] [address] [place] [address] Dr. Angel Harding Cholesterol in LDL [Mass/Vol] 125.2 mg/dL Normal [facility] Comment on above: Performed By: #### C MP, LIPID #### [facility] [address] [place] [address] Dr. nAgel Harding Cholesterol.total/Cholestero l in HDL [Mass ratio] 4.6 {ratio} Normal [facility] Comment on above: Performed By: #### C MP, LIPID #### [facility] [address] [place] [address] Dr. Angel Harding HDL NORMAL > or = 60 mg/dl - LOW CARDIOVASCULAR RISK <40 mg/dl - HIGH CARDIOVASCULAR RISK Normal [facility] Comment on above: Performed By: #### C MP, LIPID #### [facility] [address] [address] [address] Angel Harding LDL CALC NORMAL SEE BELOW Normal [facility] Comment on above: Result Comment: <100 mg/dl OPTIMAL 100 - 129 mg/dl NEAR OR ABOVE OPTIMAL 130 - 159 mg/dl BORDERLINE HIGH 160 - 189 mg/dl HIGH >190 mg/dl VERY HIGH Performed By: #### C MP, LIPID #### [facility] [address] [place] [address] Dr. Angel Harding Triglyceride [Mass/Vol] 224 mg/dL Critically high <=150 [facility] Comment on above: Performed By: #### C MP, LIPID #### [facility] [address] [place] [address] Dr. Angel Harding VLDL CALC 44.8 mg/dL Normal [facility] Comment on above: Performed By: #### C MP, LIPID #### [facility] [address] [place] [address] Dr. Angel Harding PROF 14(COMP METB)on 022 Albumin [Mass/Vol] 3.8 g/dL Normal 3.4-5.0 [facility] Comment on above: Performed By: #### C MP, LIPID #### [facility] [address] [place] [address] Dr. Angel Harding Albumin/Globulin [Mass ratio] 1.0 {ratio} Normal [facility] Comment on above: Performed By: #### C MP, LIPID #### [facility] [address] [place] [address] Dr. Angel Harding ALP [Catalytic activity/Vol] 91 U/L Normal 46-116 [facility] Comment on above: Performed By: #### C MP, LIPID #### [facility] [address] [place] [address] Dr. Angel Harding ALT [Catalytic activity/Vol] 66 U/L Critically high 16 -63 [facility] Comment on above: Performed By: #### C MP, LIPID #### [facility] [address] [place] [address] Dr. Angel Harding Anion gap [Moles/Vol] 13.0 mmol/L Normal [facility] Comment on above: Performed By: #### C MP, LIPID #### [facility] [address] [place] [address] Dr. Angel Harding AST [Catalytic activity/Vol] 29 U/L Normal 15-37 [facility] Comment on above: Performed By: #### C MP, LIPID #### [facility] [address] [place] [address] Dr. Angel Harding Bilirubin [Mass/Vol] 0.3 mg/dL Normal 0.2-1.0 [facility] Comment on above: Performed By: #### C MP, LIPID #### [facility] [address] [place] [address] Dr. Angel Harding Calcium [Mass/Vol] 8.6 mg/dL Normal 8.5-10.1 [facility] Comment on above: Performed By: #### C MP, LIPID #### [facility] [address] [place] [address] Dr. Angel Harding Chloride [Moles/Vol] 106 mmol/L Normal 98-107 [facility] Comment on above: Performed By: #### C MP, LIPID #### [facility] [address] [place] [address] Dr. Angel Harding CO2 [Moles/Vol] 25.7 mmol/L Normal 21.0-32.0 [facility] Comment on above: Performed By: #### C MP, LIPID #### [facility] [address] [place] [address] Dr. Angel Harding Creatinine [Mass/Vol] 0.83 mg/dL Normal 0.70-1.30 [facility] Comment on above: Performed By: #### C MP, LIPID #### [facility] [address] [place] [address] Dr. Angel Harding EGFR-AF URUGUAYAN >60 Normal >=60 [facility] Comment on above: Performed By: #### C MP, LIPID #### [facility] [address] [place], [place] [id number] Dr. Angel Harding EGFR-NON AF URUGUAYAN >60 Normal >=60 [facility] Comment on above: Performed By: #### C MP, LIPID #### [facility] [address] [place] [address] Dr. Angel Harding Globulin (S) [Mass/Vol] 3.7 g/dL Normal [facility] Comment on above: Performed By: #### C MP, LIPID #### [facility] [address] [place] [address] Dr. Angel Harding Glucose [Mass/Vol] 114 mg/dL Critically high 74-[address] [facility] Comment on above: Performed By: #### C MP, LIPID #### [facility] [address] [place] [address] Dr. Angel Harding Potassium [Moles/Vol] 4.7 mmol/L Normal 3.5-5.1 [facility] Comment on above: Performed By: #### C MP, LIPID #### [facility] [address] [place] [address] Dr. Angel Harding Protein [Mass/Vol] 7.5 g/dL Normal 6.1-8.2 [facility] Comment on above: Performed By: #### C MP, LIPID #### [facility] [address] [place] [address] Dr. Angel Harding Sodium [Moles/Vol] 140 mmol/L Normal 136-145 [facility] Comment on above: Performed By: #### C MP, LIPID #### [facility] [address] [place] [address] Dr. Angel Harding Urea nitrogen [Mass/Vol] 12.0 mg/dL Normal 7.0-18.0 [facility] Comment on above: Performed By: #### C MP, LIPID #### [facility] [address] [place] [address] Dr. Angel Harding Urea nitrogen/Creatinine [Ma ss ratio] 14.5 mg/mg Normal [facility] Comment on above: Performed By: #### C MP, LIPID #### [facility] [address] [place] [address] Dr. Angel Harding Operative Reporton 8 Operative Report MR#: [id number] [facility] Pt. Name: Cristi Honeycutt Room #: 0C Discharge Date: Birthdate: 1975 OPERATIVE REPORTDATE OF SURGERY: 07/01/2018SURGEON: DEJUAN ArtisREOPERATIVE DIAGNOSIS: Rectal bleeding.POSTOPERAT PATRICIA DIAGNOSIS: Right posterior mixed internal and externalhemorrhoids .PROCEDURES:1. Excision of mixed right posterior internal and external hemorrhoids.2. Exparel was used to do a perianal block.ANESTHESIA: MAC.COMPLICATIONS: None.INDICATION FOR PROCEDURE: This is a 42-year-old male presented to [facility] with rectal pain and bleeding. [...] by:Eden Solorio MD 07/01/2018 12:20 P S NARCISO Thakkarate Dict: 07/01/2018/09:02 A/NARCISO [employer] Trans: 07/01/2018 11:00 A/Anca_JN:[id number]/ [id number] Normal [facility] POC GLUCOSE LABon 07-01-2018 Glucose mass conc 101 mg/dL High 70-100 [facility] Comment on above: Performed By: #### [id number] ####[facility] Vital Signs Date Time Vital Sign Value Performing Clinician Emmy maynard 07-27-2024 08:20-0400 Body height 198.1 cm Rosie Gutierrez AIRCONDITIONING ENGINEER Work Phone: [facility] 07-27-2024 08:20-0400 Body mass index (BMI) [Ratio] 28.27 kg/m2 Rosie Gutierrez AIRCONDITIONING ENGINEER Work Phone: [facility] 07-27-2024 08:20-0400 Body temperature 96.3 [degF] Rosie Gutierrez AIRCONDITIONING ENGINEER Work Phone: [facility] 07-27-2024 08:20-0400 Body weight 110.95 kg Rosie Gutierrez AIRCONDITIONING ENGINEER Work Phone: [facility] 07-27-2024 08:20-0400 Diastolic blood pressure 60 mm[Hg] Rosie Gutierrez AIRCONDITIONING ENGINEER Work Phone: [facility] 07-27-2024 08:20-0400 Heart rate 87 /min Rosie Gutierrez AIRCONDITIONING ENGINEER Work Phone: [facility] 07-27-2024 08:20-0400 Respiratory rate 16 /min Rosie Gutierrez AIRCONDITIONING ENGINEER Work Phone: [facility] 07-27-2024 08:20-0400 SaO2% (BldA) [Mass fraction] 98 % Rosie Gutierrez AIRCONDITIONING ENGINEER Work Phone: [facility] 07-27-2024 08:20-0400 Systolic blood pressure 138 mm[Hg] Rosie Gutierrez AIRCONDITIONING ENGINEER Work Phone: [facility] Encounters Encounter Date Encounter Type Care Provider Facility Start: 10-24-2024 End: 10-26-2024 Refill Amy Huerta MA [facility] Comment on above: Obstructive sleep ap lionel Start: 10-11-2024 End: 10-11-2024 Refill Rosie Gutierrez AIRCONDITIONING ENGINEER Work Phone: [facility] Comment on above: Primary hypertension (CMS/HCC) Start: 09-19-2024 End: 09-21-2024 Refill Amy Huerta MA [facility] Comment on above: Obstructive sleep ap lionel Start: 08-17-2024 End: 08-18-2024 Refill Amy Huerta MA [facility] Comment on above: Obstructive sleep ap lionel Start: 07-27-2024 End: 07-27-2024 Bamboo flowsheet Rosie Gutierrez AIRCONDITIONING ENGINEER Work Phone: [facility] Start: 07-27-2024 End: 07-27-2024 Bamboo flowsheet Rosie Gutierrez AIRCONDITIONING ENGINEER Work Phone: [facility] Start: 07-27-2024 End: 07-27-2024 Office outpatient visit 15 minutes Rosie Gutierrez AIRCONDITIONING ENGINEER Work Phone: [facility] Comment on above: Primary hypertension (CMS/HCC) (Primary Dx); SILVIA (obstructive sleep apnea); Back pain of thoracolumbar region; Obstructive sleep apnea Start: 07-27-2024 End: 07-27-2024 ambulatory ROSIE GUTIERREZ Not Available Start: 07-18-2024 End: 07-20-2024 Refill Jacob Sánchez MA [facility] Comment on above: Obstructive sleep ap lionel Start: 06-18-2024 End: 06-20-2024 Refill Rosie Gutierrez AIRCONDITIONING ENGINEER Work Phone: [facility] Start: 04-20-2024 Patient encounter status Adilia Vermazpatrick AIRCONDITIONING ENGINEER Work Phone: [facility] Start: 04-20-2024 End: 04-20-2024 ambulatory SHAIKH SYMONE Not Available Start: 12-10-2023 Orders Only Shaikh Symone CAMACHO Work Phone: [facility] Comment on above: Primary hypertension [...] End: 07-02-2018 Patient encounter procedure EDEN SOLORIO Facility:[facility] Start: 06-08-2018 End: 06-09-2018 Patient encounter procedure DEFAULT PHYSICIAN Facility:[facility] Procedures Date Procedure Procedure Detail Performing Clinician Start: 07-27-2024 Drug test prsmv read direct optical obs pr date Rosie Gutierrez NP Work Phone: Start: 07-01-2018 ANESTH ANORECTAL SURGERY JENNY COLUNGA Start: 07-01-2018 REMOVE BY LIGAT INT HEM GRP EDEN SOLORIO Start: 05-21-2018 Colonoscopy Rosie ramos NP Work Phone: Plan of Treatment Date Care Activity Detail Author Start: 05-21-2028 Screening for malign ant neoplasm of colon [facility] Start: 01-25-2025 End: 01-25-2025 Patient encounter procedure 01/25/2025 8:30 AM EDT Office Visit [facility] [address] [place] [address] Rosie Gutierrez NP [address] [place] [address] [facility] Start: 07-27-2024 End: 07-27-2024 Patient encounter procedure [facility] Comment on above: Primary hypertension (CMS/HCC) (Primary Dx); SILVIA (obstructive sleep apnea); Back pain of thoracolumbar region Start: 06-26-2024 Influenza vaccination Influenza Vacc ine (#1) [facility] Start: 06-26-2023 Influenza vaccination Influenza Vacc ine (#1) [facility] Start: 1975 Screening for malign ant neoplasm of colon [facility] Immunizations Immunization Date Immunization Notes Care Provider Evelyn mars 06-08-2019 tetanus toxoid, redu monica diphtheria toxoid, and acellular pertussis vaccine, adsorbed Rosie Gutierrez AIRCONDITIONING ENGINEER Work Phone: [facility] Payers Date Payer Category Payer Private Health Insurance [id number] 1975 Unknown [id number] [id number] 1975 Unknown [id number] 2.16.8 [id number] 1975 Unknown [id number] 2.16.84 [id number] 1975 Unknown [id number] 2.16.84 [id number] 1975 Unknown [id number] 2.16.84 [id number] 1975 Unknown [id number] 2.16.84 [id number] 1975 Unknown [id number] 2.16.84 [id number] 1975 Unknown [id number] 2.16.84 [id number] 1975 Unknown [id number] 2.16.84 [id number] 1958 Unknown [id number] Unknown Social History Date Type Detail Facility [facility] Start: 1975 Sex Assigned At Not on file [facility] Start: 04-20-2024 End: 07-27-2024 Gender identity Not on file [facility] Start: 04-20-2024 [facility] History of [...] 07-27-2024 History of Social function [facility] Clinical Notes 04-03-2022 to 10-24-2024 Telephone Encounter - Amy Huerta MA - 10/24/2024 12:51 PM ESTTelephone Encounter - Amy Huerta MA - 10/24/2024 12:51 PM ESTTelephone Encounter - Amy Huerta MA - 09/19/2024 8:08 AM EST Note Date & Type Note Facility 10-24-2024 Telephone encount er Note Pt ran out over the . MIMI:07/27/2024 NOV:01/25/2025 [facility] 10-24-2024 Miscellaneous Notes Formattin g of this note might be different from the original. Pt ran out over the . MIMI:07/27/2024 NOV:01/25/2025 documented in this encounter [facility] 09-19-2024 Telephone encount er Note MIMI:07/27/2024 NOV:01/25/2025 [facility] 09-19-2024 Miscellaneous Notes Formattin g of this note might be different from the original. MIMI:07/27/2024 NOV:01/25/2025 documented in this encounter [facility] 08-17-2024 Telephone encount er Note P requesting a refill on his Adderall. MIMI:07/27/2024 NOV:01/25/2025 [facility] 08-17-2024 Miscellaneous Notes Formattin g of this note might be different from the original. P requesting a refill on his Adderall. MMII:07/27/2024 NOV:01/25/2025 documented in this encounter [facility] 07-27-2024 History of Presen t illness Narrative [...] Obstructive sleep apnea documented in this encounter [facility] 01-22-2023 Note CONSULTATION CONSULTATION DATE: 01/22/2023 TO: [...] secondary to the strained patient/physician relationship. [facility] 10-24-2022 Note CONSULTATION CONSULTATION DATE: 10/24/2022 HISTORY OF PRESENT ILLNESS: This is a 46-year-old male. He is a shelter patient of our clinic, being seen for a three month follow up for chronic lower back pain. Historically, the patient has declined procedures that have been offered and prefers to be medically maintained. His medications include Mobic 15 mg daily, Percocet 5/325 t.i.d., tizanidine 4 mg p.r.n. and Adderall. 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 His chronic pain does not interfere with ADLs, as long as he is compliant with his medications. 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 This morning, [...] three months' time, unless otherwise indicated. [facility] 07-16-2022 Note CONSULTATION CONSULTATION DATE: 07/16/2022 HISTORY [...] Patient is in agreement to this. [facility] 04-03-2022 Note CONSULTATION CONSULTATION DATE: 04/03/2022 HISTORY [...] mid upper back. 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 [facility] Signed and Approved by: STAR MOLINA . 04/10/2022 16:02:00 [facility] Evaluation note Diagnosis Primary hypertension (CMS/HCC)- Primary Unspecified essential hypertension Obstructive sleep apnea Obstructive sleep apnea (adult) (pediatric) [facility] Primary hypertension (CMS/HCC)- Primary Unspecified essential hypertension SILVIA (obstructive sleep apnea) Obstructive sleep apnea (adult) (pediatric) Back pain of thoracolumbar region Obstructive sleep apnea Obstructive sleep apnea (adult) (pediatric) [facility] Diagnosis SILVIA (obstructive sleep apnea)- Primary Obstructive [...] (adult) (pediatric) [facility] Diagnosis SILVIA (obstructive sleep apnea)- Primary Obstructive [...] (pediatric) Primary hypertension (CMS/HCC) Unspecified essential hypertension [facility] Diagnosis Obstructive sleep apnea Obstructive sleep apnea (adult) [...] section and content) DATE CREATED AUTHOR 10/21/2018 [facility] DATE CREATED AUTHOR AUTHOR'S ORGANIZ ATION 01/31/2023 [facility] DATE CREATED AUTHOR AUTHOR'S ORGANIZ ATION 07/28/2024 [facility] Care Teams (unrecognized sec tion and content) Tap Builder Relationship Specialty Start Date End Date Shaikh Ashby MD PCP - General Internal Medicine 05/13/23 Tap Builder Relationship Specialty Start Date End Date Cristi Crisostomo MD [address] [place] [address] PCP - General Family Medicine 06/07/24 Rosie Gutierrez NP [address] [place] [address] Nurse Practitioner Family Medicine 06/07/24 Tap Builder Relationship Specialty Start Date End Date Cristi Crisostomo MD [address] [place] [phone] PCP - General Family Medicine 06/07/24 Rosie Gutierrez NP [address] [place] [address] Nurse Practitioner Family Medicine 06/07/24 Tap Builder Relationship Specialty Start Date End Date Cristi Crisostomo MD [address] [place] [phone] PCP - General Family Medicine 06/07/24 Rosie Gutierrez NP [address] [place] [address] Nurse Practitioner Family Medicine 06/07/24 Tap Builder Relationship Specialty Start Date End Date Cristi Crisostomo MD [address] [place] [phone] PCP - General Family Medicine 06/07/24 Rosie Gutierrez NP [address] [place] [address] Nurse Practitioner Family Medicine 06/07/24 Tap Builder Relationship Specialty Start Date End Date Cristi Crisostomo MD [address] [place] [phone] PCP - General Family Medicine 06/07/24 Rosie Gutierrez NP [address] [place] [phone] Nurse Practitioner Family Medicine 06/07/24 Tap Builder Relationship Specialty Start Date End Date Cristi Crisostomo MD [address] [place] [phone] PCP - General Family Medicine 06/07/24 Rosie Gutierrez NP [address] [place] [address] Nurse Practitioner Family Medicine 06/07/24 Reason for Visit (unrecogniz ed section and content) Reason Comments Med Refill Reason Onset Date Comments Med Refill 08/17/2024 Reason Onset Date Comments Med Refill 09/19/2024 Reason Onset Date Comments Med Refill 07/18/2024 Reason Onset Date Comments Med Refill 10/24/2024 FOR RECORDS PERTAINING TO PATIENTS WHO ARE [...] BE BASED ON THE PRIMARY CLINICAL RECORDS. [employer] provides no warranty or guarantee of the accuracy or completeness of information in this document.
== END 2024-12-13 14:42 | disposition home or self-care (01) ==
LOC: PM 14:41
PROVIDERS: Visit Provider Anesthesiology Pain Medicine
DX: M25.561 Pain in right knee (principal); M25.562 Pain in left knee; M54.50 Low back pain, unspecified
CPT/HCPCS: G0463

== ENCOUNTER 2024-12-26 08:35 | Outpatient (OUT) | payer OTHER, SELFPAY ==
--- NOTE | 2024-12-26 08:41 | XR_ITS ---
[place] [address] Patient Name: LESLEE FIELDS MRN: [id number] date: 1975 Sex: M Assigned Patient Location: [facility] Current Patient Location: [facility] Accession/Order Number: [id number] Exam Date: 12/26/2024 16:55 Report Date: 12/26/2024 16:56 At the request of: CARMELLA RODRIGUEZ MD Procedure: XR lumbar spine 6V w bending LUMBAR SPINE - 6 views CLINICAL HISTORY: Lumbar Spondylosis, Previous Lumbar Surgery COMPARISON: Lumbar spine 04/14/2021 FINDINGS: Vertebral body heights appear maintained. Moderate disc space narrowing L5-S1 with facet joint degenerative changes. No pathological motion on presumed flexion and extension views. XR/XR lumbar spine 6V w bending IMPRESSION: MODERATE DISC SPACE NARROWING L5-S1 SIMILAR TO THE 2020 STUDY. Impression dictated by: Dennis Rodríguez Jr., DKristie12/26/2024 4:56 PM Dictation Location: [place] [address] Electronically authenticated by: [id number] Y Date: 12/26/2024 16:56
== END 2024-12-26 08:36 | disposition home or self-care (01) ==
PROVIDERS: Visit Provider Anesthesiology Pain Medicine
DX: M47.816 Spondylosis without myelopathy or radiculopathy, lumbar region (principal)
CPT/HCPCS: 72114

== ENCOUNTER 2025-02-15 07:57 | Outpatient (OUT) | payer OTHER, SELFPAY ==
--- NOTE | 2025-02-15 08:20 | P.CN_ITS ---
Consult Note: HPI Data of Consult Patient: known to practice within the last 3 years Requesting Physician: Emma Albert NP Primary Care Provider: LUIS CARLOS TORREZ Consult Narrative Reason for consult: f/u Narrative: Cristi Honeycutt a 48 year old male presents for evaluation and management of chronic back pain, bilateral knee pain, and left wrist pain. Today rating pain 4/10, reports it gets up to a 10/10 at times. Patient reports pain is well controlled since last visit and he continues to be active with work. Pain increased with long periods of sitting and improved with activity. Patient continues to report he cannot afford imaging, PT, injection therapy. Patient finds no improvement with HEP and physical labor at home. Patient continues to report functional improvement and benefit from current medication regimen. recent lumbar xray consistent with facet arthropathy and L5-S1 DDD, unfortunately it cost the patient $800 to undergo and he cannot afford imaging and interventions. at last visit we decreased percocet 5-325mg TID PRN 70 tabs a month, TAVON stable pain similar to last visit. pt trialed zonegran but noted sev ere delay in wound healing and depression, was not able to tolerate. cc:: CC: Emma Albert NP Review of Systems ROS Status of ROS 10 or more systems reviewed and unremark able except as noted in history and below Musculoskeletal Reports: back pain, extremity pain and joint pain Meds Home Medications and Allergies Home Medications ?Medication ?Instructions ?Recorded ?Confirmed ?Type dextroamphetamine-amphetamine 10 10 mg PO DAILY 05/14/23 05/14/23 History mg tablet (Adderall) losartan 100 mg tablet 100 mg PO DAILY 05/14/23 05/14/23 History tizanidine 4 mg tablet 8 mg PO BEDTIME PRN muscle spasm 05/14/23 05/14/23 History naloxone 4 mg/actuation nasal 1 spray intranasal Q3M PRN opioid 08/19/23 Rx spray (Narcan) overdose #2 ea oxycodone-acetaminophen 5 mg-325 See Rx Instructions .Route 06/28/24 Rx mg tablet (Percocet) .COMPLEX PRN pain #80 tabs meloxicam 15 mg tablet 15 mg PO DAILY #90 tabs 09/01/24 Rx oxycodone-acetaminophen 5 mg-325 See Rx Instructions .Route 12/28/24 Rx mg tablet (Percocet) .COMPLEX PRN pain #70 tabs oxycodone-acetaminophen 5 mg-325 See Rx Instructions .Route 12/29/24 Rx mg tablet (Percocet) .COMPLEX PRN pain #70 tabs oxycodone-acetaminophen 5 mg-325 1 tab PO TID PRN pain #70 tabs 02/06/25 Rx mg tablet (Percocet) Allergies Allergy/AdvReac Type Severity Reaction Status Date / Time No Known Drug Allergies Allergy Verified 05/14/23 09:27 Exam Constitutional Documenting provider has reviewed patient's vital signs: yes Common normals: no apparent distress, oriented x3, healthy appearing, alert and well nourished General appearance: cooperative HENMT Common normals: normocephalic, hearing grossly normal bilaterally and moist oral mucous membranes Head and scalp: normocephalic Eye Common normals: PERRL Pupil: PERRL Neck & C-Spine Common normals: full ROM General: normal visual inspection Chest Common normals: inspection of chest normal Respiratory Common normals: normal respiratory effort, no retractions and no use of accessory muscles Back & Pelvis Thoracic spine/upper back: ROM limited and pain with ROM Lumbar spine/lower back: ROM limited, pain with ROM and straight leg raise n egative bilaterally Sacroiliac joints: SI joints normal Other: positive facet loading lumbar spine worse on left than right Extremity Common normals: normal to inspection and full ROM Right lower extremity: knee joint Left lower extremity: knee joint Other: mild edema, no instability left wrist positive phalens and finklestein Neuro Common normals: oriented x3, CN's II-XII intact bilaterally, moves all extremities, no focal motor deficits, no sensory deficits noted and deep tendon reflexes 2+ bilaterally Sensorium/orientation: alert Motor exam: strength 5/5 throughout and no movement abnormalities noted Psych Common normals: mental status grossly normal, thought process normal, cooperative, affect normal, speech normal and activity/motor behavior normal Speech: normal speech Thought process: normal thought process Assessment and Plan Assessment and Plan (1) Lumbar spondylosis: (2) Chronic prescription opiate use: (3) Muscle spasm: (4) Spondylolysis, thoracic region: (5) Lumbar stenosis with neurogenic claudication: (6) DDD (degenerative disc disease), lumbar: Plan lumbar xray reviewed with pt continue percocet 5-325mg TID PRN moderate to severe pain 70 tabs/month, continues to report functional improvement. continue mobic 15mg daily and PRN tizanidine. denies side effects from medication regimen continue heat/ice PRN continue HEP as tolerated narcan declined by pt f/u 3 months, sooner if needed
== END 2025-02-15 07:58 | disposition home or self-care (01) ==
LOC: PM 07:58
PROVIDERS: Visit Provider Nurse Practitioner
DX: M47.816 Spondylosis without myelopathy or radiculopathy, lumbar region (principal); M62.838 Other muscle spasm; M47.814 Spondylosis without myelopathy or radiculopathy, thoracic region; M48.062 Spinal stenosis, lumbar region with neurogenic claudication; M51.369 Other intervertebral disc degeneration, lumbar region without mention of lumbar back pain or lower extremity pain
CPT/HCPCS: G0463

== ENCOUNTER 2025-05-25 07:49 | Outpatient (OUT) | payer OTHER, SELFPAY ==
--- OUTSIDE RECORDS SUMMARY | 2025-05-25 07:51 | XMS_ITS | Encounter Summary ---
Author Organization [facility] Address [address] [place] [address] Care Team Providers Care Mononitrotoluene Operator Name Role Phone Cristi Crisostomo MD Primary Care Provider [phone] Rosie Gutierrez VIDEO PRODUCER Unavailable [phone] Encounter Details Date Type Department Care Team ([facility] Contact Info) Description 07/27/2024 Abstract [facility] [address] [place] [phone] Rosie Gutierrez NP Social History Tobacco Use Types Packs/Day Years Used Date Smoking Tobacco: Every Day Cigarettes Passive Smoke Exposure: Current Smokeless Tobacco: Current Chew Alcohol Use Standard Drinks/Week Comments Yes 0 (1 standard drink = 0.6 oz pur e alcohol) Sex and Gender Information Value Date Recorded Sex Assigned at Not on file Legal Sex Male 8:24 PM EDT Gender Identity Not on file Sexual Orientation Not on file documented as of this encounter Plan of Treatment Upcoming Encounters Date Type Department Care Team ([facility] Contact Info) Description 09/04/2025 8:30 AM EST Office Visit [facility] [address] [place] [address] Cristi Crisostomo MD [address] [place] [address] documented as of this encounter Visit Diagnoses Not on filedocumented in this encounter Care Teams Mononitrotoluene Operator Relationship Specialty Start Date End Date Cristi Crisostomo MD [address] [place] [address] PCP - General Family Medicine 06/07/24 Rosie Gutierrez NP [address] [place] [address] Nurse Practitioner Family Medicine 06/07/24 documented as of this encounter
--- OUTSIDE RECORDS SUMMARY | 2025-05-25 07:53 | XMS_ITS | CCD ---
Author Organization [facility] Care Team Providers Care Network Administrator Name Role Phone PHYSICIAN, DEFAULT Unavailable Unavailable PHYSICIAN, DEFAULT Unavailable Unavailable EDEN SOLORIO Unavailable Unavailable EDEN SOLORIO Unavailable Unavailable SELF, REFERRED Unavailable Unavailable SELF, REFERRED Unavailable Unavailable PA Unavailable Unavailable EDEN SOLORIO Unavailable Unavailable PA Unavailable Unavailable JENNY COLUNGA Unavailable Unavailable FAWWAD, [...] Unavailable Shaikh Ashby MD Primary Care Provider Cristi Dave MD Primary Care Provider [phone] Brenda ROTARY SHEAR CUTTER, Rosie Unavailable Brenda ROTARY SHEAR CUTTER, Rosie Unavailable [phone] CRISTI DAVE Attending Unavailable SHAIKH ASHBY Attending Unavailable GUTIERREZ, ROSIE Attending Unavailabl e Medications Current Medications Medication Drug Class(es) Dates Sig (Normalized) Sig (Original) acetaminophen 325 mg / oxyCODONE hydrochloride 5 mg oral tablet (19 sources) Opioid Agonist take 1 tablet by mouth every eight hours as needed for pain oxyCODONE-acetamin ophen (Percocet) 5-325 MG tablet Take 1 tablet by mouth every 8 (eight) hours if needed for moderate pain Active losartan potassium 100 mg oral tablet (20 sources) Angiotensin 2 Receptor Katelin Start: 04-18-2025 take 1 tablet by mouth once daily in the morning losartan (Cozaar) 100 MG tablet Indications: Primary hypertension TAKE 1 TABLET BY MOUTH EVERY DAY IN THE MORNING 30 tablet 2 04/18/2025 Active Start: 01-11-2025 take 1 tablet by lia th in the morning losartan (Cozaar) 100 MG tablet Indications: Primary hypertension (CMS/HCC) Take 1 tablet (100 mg) by mouth in the morning. 90 tablet 01/11/2025 Active Start: 04-20-2024 End: 10-11-2024 take 1 tablet by mouth once daily in the morning losartan (Cozaar) 100 MG tablet Indications: Primary hypertension (CMS/HCC) TAKE 1 TABLET BY MOUTH EVERY DAY IN THE MORNING 90 tablet 10/11/2024 Active Start: 09-21-2023 End: 03-09-2024 take 1 tablet by mouth in the morning losartan (Cozaar) 100 MG tablet Indications: Primary hypertension (CMS/HCC) Take 1 tablet (100 mg) by mouth in the morning. 90 tablet 0 12/10/2023 03/09/2024 Active meloxicam 15 mg oral tablet (19 sources) Nonsteroidal Anti-inflammatory Drug Start: 09-24-2023 take 1 tablet by mouth in the morning meloxicam (Mobic) 15 MG tablet Take 15 mg by mouth in the morning. 09/24/2023 Active naloxone hydrochloride 40 mg/ml nasal spray (19 sources) Opioid Antagonist Start: 08-19-2023 naloxone (Narcan) 4 mg/0.1 mL nasal spray Administer 4 mg into affected nostril(s) if needed 08/19/2023 Active polymyxin b 72398 unt/ml / trimethoprim 1 mg/ml ophthalmic solution (19 sources) Dihydrofolate Reductase Inhibitor Antibacterial, Polymyxin-class Antibacterial Start: 04-13-2023 take 1 drop(s) into the eye(s) every six hours trimethoprim-po lymyxin b (Polytrim) ophthalmic solution Administer 1 drop into both eyes every 6 (six) hours 04/13/2023 Active tiZANidine 4 mg oral tablet (5 sources) Central alpha-2 Adrenergic Agonist Start: 06-22-2024 take 2 tablets by mouth once daily at bedtime as needed tiZANidine (Zanaflex) 4 MG tablet TAKE 2 TABLETS BY MOUTH EVERYDAY AT BEDTIME NEEDED FOR MUSCLE SPASTICITY 06/22/2024 Active Completed/Discontinued Medications Medication Drug Class(es) Dates Sig (Normalized) Sig (Original) amphetamine aspartate 2.5 mg / amphetamine sulfate 2.5 mg / dextroamphetamine saccharate 2.5 mg / dextroamphetamine sulfate 2.5 mg oral tablet (20 sources) Central Nervous System Stimulant Start: 11-28-2024 End: 06-03-2025 take 1 tablet by mouth once daily amphetamine-dextro amphetamine (Adderall) 10 MG tablet Indications: Obstructive sleep apnea Take 1 tablet (10 mg) by mouth Daily 30 tablet 04/05/2025 05/04/2025 Discontinued (Reorder) Start: 10-26-2024 End: 11-25-2024 take 1 tablet [...] Problem Date Documented Date Episodic/Chronic Essential hypertension (20 sources) Essential (primary) hypertension; Translations: [Essential hypertension] Onset: 07-01-2018 Chronic Other nervous system disorders (4 sources) Other chronic pain; Translations: [OTHER CHRONIC PAIN] Onset: 01-22-2023 Chronic Other nervous system disorders (4 sources) Polyneuropathy, unspecified; Translations: [POLYNEUROPATHY UNSPECIFIED] Onset: 04-03-2022 Chronic Residual codes; unclassified (20 sources) Obstructive sleep apnea syndrome; Translations: [Obstructive sleep apnea (adult) (pediatric)] Onset: 04-20-2024 12-10-2023 Chronic Residual codes; unclassified (1 source) Sleep apnea, unspecified; Translations: [SLEEP APNEA, UNSPECIFIED] Onset: 07-01-2018 Spondylosis; intervertebral disc disorders; other back problems (7 sources) Other intervertebral disc degeneration, lumbar region; Translations: [Spondylosis without myelopathy or radiculopathy, lumbar region] Onset: 07-16-2022 Chronic Substance-related disorders (19 sources) Nicotine dependence, cigarettes, uncomplicated; Translations: [Smoker] [...] Spondylosis; intervertebral disc disorders; other back problems (20 sources) Intervertebral disc disorders with radiculopathy, lumbar region; Translations: [Backache] Onset: 07-18-2022 04-20-2024 Episodic Unclassified (1 source) LOW BACK PAIN, UNSPECIFIED; Translations: [LOW BACK PAIN, UNSPECIFIED] Onset: 10-24-2022 Results Test Name Value Interpretation Reference Range Facility XR LUMBAR SPINE 6V W BENDING on 12-26-2024 [place] [address] XRay Report Signed Patient: CRISTI FIELDS MR#: [id number] : 1975 Acct:[id number] Age/Sex: 48 / M ADM Date: 12/26/24 Loc: RAD Attending Dr: Alaina Rodriguez M.D. Ordering Physician: Vinayak Rodriguez M.D. Date of Service: 12/26/24 Procedure(s): XR lumbar spine 6V w bending Accession Number(s): [id number] cc: JIGNESH GUTIERREZ Narend ranath M.D. [place] [address] Patient Name: CRISTI FIELDS MRN: [id number] date: 1975 Sex: M Assigned Patient Location: [facility] Current Patient Location: [facility] Accession/Order Number: [id number] Exam Date: 12/26/2024 16:55 Report Date: 12/26/2024 16:56 At the request of: ALAINA RODRIGUEZ MD Procedure: XR lumbar spine 6V w bending LUMBAR SPINE - 6 views CLINICAL HISTORY: Lumbar Spondylosis, Previous Lumbar Surgery COMPARISON: Lumbar spine 04/14/2021 FINDINGS: Vertebral body heights appear maintained. Moderate disc space narrowing L5-S1 with facet joint degenerative changes. No pathological motion on presumed flexion and extension views. XR/XR lumbar spine 6V w bending IMPRESSION: MODERATE DISC SPACE NARROWING L5-S1 SIMILAR TO THE 2020 STUDY. Impression dictated by: Dennis Rodríguez Jr., D.O.12/26/2024 4:56 PM Dictation Location: [place] [address] Electronically authenticated by: [id number] Y Date: 12/26/2024 16:56 Dictated By: Dennis Rodríguez M.D. Signed By: 12/26/249 DD/ 55 TD/TT: Eradicator: [facility] Radiology, Radiologist, - 12/27/2024 [place] [address] XRay Report Signed Patient: CRISTI FIELDS MR#: [id number] : 1975 Acct:[id number] Age/Sex: 48 / M ADM Date: 12/26/24 Loc: [facility] Attending Dr: Alaina Rodriguez M.D. Ordering Physician: Vinayak Rodriguez M.D. Date of Service: 12/26/24 Procedure(s): XR lumbar spine 6V w bending Accession Number(s): [id number] cc: JIGNESH GUTIERREZ Narend ranath M.D. [place] [address] Patient Name: CRISTI FIELDS MRN: [facility]:[id number] date: 1975 Sex: M Assigned Patient Location: [facility] Current Patient Location: [facility] Accession/Order Number: [id number] Exam Date: 12/26/2024 16:55 Report Date: 12/26/2024 16:56 At the request of: ALAINA RODRIGUEZ MD Procedure: XR lumbar spine 6V w bending LUMBAR SPINE - 6 views CLINICAL HISTORY: Lumbar Spondylosis, Previous Lumbar Surgery COMPARISON: Lumbar spine 04/14/2021 FINDINGS: Vertebral body heights appear maintained. Moderate disc space narrowing L5-S1 with facet joint degenerative changes. No pathological motion on presumed flexion and extension views. XR/XR lumbar spine 6V w bending IMPRESSION: MODERATE DISC SPACE NARROWING L5-S1 SIMILAR TO THE 2020 STUDY. Impression dictated by: Jessika Garcia Jr.OKenneth12/26/2024 4:56 PM Dictation Location: [place] [address] Electronically authenticated by: [id number] Y Date: 12/26/2024 16:56 Dictated By: Dennis Rodríguez M.D. Signed By: 12/26/241658 DD/ 55 TD/TT: Eradicator: [facility] Radiology [facility]ative[facility] W BENDING Ordered By: Radiologist Radiology on 12-26-2024 [facility] Work Phone: Drugs of abuse panel Screen (U)on 07-27-2024 Amphetamines Ql (U) Positive [facility] Barbiturates Ql (U) Negative [facility] Benzodiazepines Ql (U) Negative [facility] Benzoylecgonine Ql (U) Negative [facility] Carboxy tetrahydrocannabinol (Mec) [Mass/Mass] Negative [facility] Interpretation and review of laboratory results Abnormal [facility] Methadone (U) [Mass/Vol] Negative [facility] Methylenedioxymethamphetamin e Screen Ql (U) Negative [facility] Morphine (U) [Mass/Vol] Negative [facility] Opiates Ql (U) Negative [facility] oxyCODONE Ql (U) Positive [facility] Phencyclidine Ql (U) Negative [facility] Reference Lab Test ID Negative [facility] Tricyclic antidepressants [Mass/Vol] Negative [facility] CBC AUTO DIFFon 02-20-2022 BASO # 0.0 103/ul Normal 0.0-0.1 [facility] Comment on above: Performed By: #### C BC #### [facility] [address] [place] [address] Dr. Angel Harding Basophils/100 WBC (Bld) 0.7 % Normal 0.2-2.[address] [facility] Comment on above: Performed By: #### C BC #### [facility] [address] [place] [address] [address] Angel Harding EO # 0.2 103/ul Normal 0.0-0.7 [facility] Comment on above: Performed By: #### C BC #### [facility] [address] [place] [address] [address] Angel Harding Eosinophils/100 WBC (Bld) 2.6 % Normal 0.9-7.0 [facility] Comment on above: Performed By: #### C BC #### [facility] [address] [place] [address] Dr. Angel Harding Erythrocyte distribution wid th (RBC) [Ratio] 12.4 % Normal 11.0-15.0 [facility] Comment on above: Performed By: #### C BC #### [facility] [address] [place] [address] Dr. Angel Harding Hematocrit (Bld) [Volume fraction] 42.2 % Normal 42.0-54.0 [facility] Comment on above: Performed By: #### C BC #### [facility] [address] [place] [address] Dr. Angel Harding Hemoglobin (Bld) [Mass/Vol] 14.1 g/dL Normal 14.0-18. 0 [facility] Comment on above: Performed By: #### C BC #### [facility] [address] [place] [address] Dr. Angel Harding IG # 0.02 10e3/ul Normal 0.00-0.03 [facility] Comment on above: Performed By: #### C BC #### [facility] [address] [place] [address] Dr. Angel Harding IG % 0.3 % Normal 0.0-0.5 [facility] Comment on above: Performed By: #### C BC #### [facility] [address] [place] [address] Dr. Angel Harding LYMPH # 2.4 103/ul Normal 1.2-3.8 [facility] Comment on above: Performed By: #### C BC #### [facility] [address] [place] [address] Dr. Angel Harding Lymphocytes/100 WBC (Bld) 39.4 % Normal 20.5-60.0 [facility] Comment on above: Performed By: #### C BC #### [facility] [address] [place] [address] Dr. Angel Harding MANUAL DIFF REQ NO Normal [facility] Comment on above: Performed By: #### C BC #### [facility] [address] [place] [address] Dr. Angel Harding MCH (RBC) [Entitic mass] 31.4 pg Normal 25.9-34.0 [facility] Comment on above: Performed By: #### C BC #### [facility] [address] [place] [address] Dr. Angel Harding MCHC (RBC) [Mass/Vol] 33.4 g/dL Normal 29.9-35.2 [facility] Comment on above: Performed By: #### C BC #### [facility] [address] [place] [address] Dr. Angel Harding MCV (RBC) [Entitic vol] 94.0 fL Normal 80.0-94.[address] [facility] Comment on above: Performed By: #### C BC #### [facility] [address] [place] [address] Dr. Angel Harding MONO # 0.5 103/ul Normal 0.3-0.8 [facility] Comment on above: Performed By: #### C BC #### [facility] [address] [place] [address] Dr. Angel Harding Monocytes/100 WBC (Bld) 7.5 % Normal 1.7-12.[address] [facility] Comment on above: Performed By: #### C BC #### [facility] [address] [place] [address] Dr. Angel Harding NEUT # 3.0 103/ul Normal 1.4-6.5 [facility] Comment on above: Performed By: #### C BC #### [facility] [address] [place] [address] Dr. Angel Harding Neutrophils/100 WBC (Bld) 49.5 % Normal 43.0-75.0 [facility] Comment on above: Performed By: #### C BC #### [facility] [address] [place] [address] Dr. Angel Harding Platelet mean volume (Bld) [Entitic vol] 9.7 fL Normal 9.5-13.5 [facility] Comment on above: Performed By: #### C BC #### [facility] [address] [place] [address] Dr. Angel Harding PLT 275 103/ul Normal 150-450 [facility] Comment on above: Performed By: #### C BC #### [facility] [address] [place] [address] Dr. Angel Harding RBC 4.49 106/ul Critically low 4.70-6.10 [facility] Comment on above: Performed By: #### C BC #### [facility] [address] [place] [address] Dr. Angel Harding WBC 6.1 103/ul Normal 4.0-11.0 [facility] Comment on above: Performed By: #### C BC #### [facility] [address] [place] [address] Dr. Angel Harding GLYCOHEMOGLOBIN A1Con 2021 ADA RECOMMENDATION SEE BELOW Normal [facility] Comment on above: Result Comment: ADA RECOMMENDED LIMIT 4.0 - 6.0 ADA THERAPEUTIC TARGET < 7.0 ACTION SUGGESTED > 7.0 Performed By: #### A 1C #### [facility] [address] [place] [address] Dr. Angel Harding Glucose [Mass/Vol] 117 mg/dL Normal [facility] Comment on above: Performed By: #### A 1C #### [facility] [address] [place] [address] Dr. Angel Harding HbA1c (Bld) [Mass fraction] 5.7 % Normal 4.5-6.2 [facility] Comment on above: Performed By: #### A 1C #### [facility] [address] [place] [address] Dr. Angel Harding LIPID PROFILEon 02-20-2022 CHOL-HDL RATIO NORM SEE BELOW Normal [facility] Comment on above: Result Comment: 3.3 - 4.4 LOW RISK 4.4 - 7.1 AVERAGE RISK 7.1 - 11.0 MODERATE RISK >11.0 HIGH RISK Performed By: #### C MP, LIPID #### [facility] [address] [place] [address] Dr. Angel Harding Cholesterol [Mass/Vol] 217 mg/dL Critically high <=200 [facility] Comment on above: Performed By: #### C MP, LIPID #### [facility] [address] [place] [address] [address] Angel Harding Cholesterol in HDL [Mass/Vol] 47 mg/dL Normal 40-60 [facility] Comment on above: Performed By: #### C MP, LIPID #### [facility] [address] [place] [address] [address] Angel Harding Cholesterol in LDL [Mass/Vol] 125.2 mg/dL Normal [facility] Comment on above: Performed By: #### C MP, LIPID #### [facility] [address] [place] [address] Dr. Angel Harding Cholesterol.total/Cholestero l in HDL [Mass ratio] 4.6 {ratio} Normal [facility] Comment on above: Performed By: #### C MP, LIPID #### [facility] [address] [place] [address] Dr. Angel Harding HDL NORMAL > or = 60 mg/dl - LOW CARDIOVASCULAR RISK <40 mg/dl - HIGH CARDIOVASCULAR RISK Normal [facility] Comment on above: Performed By: #### C MP, LIPID #### [facility] [address] [place] [address] [address] Angel Harding LDL CALC NORMAL SEE BELOW Normal [facility] Comment on above: Result Comment: <100 mg/dl OPTIMAL 100 - 129 mg/dl NEAR OR ABOVE OPTIMAL 130 - 159 mg/dl BORDERLINE HIGH 160 - 189 mg/dl HIGH >190 mg/dl VERY HIGH Performed By: #### C MP, LIPID #### [facility] [address] [place] [address] [address] Angel Harding Triglyceride [Mass/Vol] 224 mg/dL Critically high <=150 [facility] Comment on above: Performed By: #### C MP, LIPID #### [facility] [address] [place] [address] [address] Angel Harding VLDL CALC 44.8 mg/dL Normal [facility] Comment on above: Performed By: #### C MP, LIPID #### [facility] [address] [place] [address] Dr. Angel Harding PROF 14(COMP METB)on 022 Albumin [Mass/Vol] 3.8 g/dL Normal 3.4-5.0 [facility] Comment on above: Performed By: #### C MP, LIPID #### [facility] [address] [place] [address] Dr. Angel Harding Albumin/Globulin [Mass ratio] 1.0 {ratio} Normal [facility] Comment on above: Performed By: #### C MP, LIPID #### [facility] [address] [place] [address] Dr. Angel Harding ALP [Catalytic activity/Vol] 91 U/L Normal 46-116 [facility] Comment on above: Performed By: #### C MP, LIPID #### [facility] [address] [place] [address] Dr. Angel Harding ALT [Catalytic activity/Vol] 66 U/L Critically high 16 -63 [facility] Comment on above: Performed By: #### C MP, LIPID #### [facility] [address] [place] [address] Dr. Angel Harding Anion gap [Moles/Vol] 13.0 mmol/L Normal [facility] Comment on above: Performed By: #### C MP, LIPID #### [facility] [address] [place] [address] Dr. Angel Harding AST [Catalytic activity/Vol] 29 U/L Normal 15-37 [facility] Comment on above: Performed By: #### C MP, LIPID #### [facility] [address] [place] [address] Dr. Angel Harding Bilirubin [Mass/Vol] 0.3 mg/dL Normal 0.2-1.0 [facility] Comment on above: Performed By: #### C MP, LIPID #### [facility] [address] [place] [address] Dr. Angel Harding Calcium [Mass/Vol] 8.6 mg/dL Normal 8.5-10.1 [facility] Comment on above: Performed By: #### C MP, LIPID #### [facility] [address] [place] [address] [address] Angel Harding Chloride [Moles/Vol] 106 mmol/L Normal 98-107 [facility] Comment on above: Performed By: #### C MP, LIPID #### [facility] [address] [place] [address] [address] Angel Harding CO2 [Moles/Vol] 25.7 mmol/L Normal 21.0-32.0 [facility] Comment on above: Performed By: #### C MP, LIPID #### [facility] [address] [place] [address] [address] Angel Harding Creatinine [Mass/Vol] 0.83 mg/dL Normal 0.70-1.30 [facility] Comment on above: Performed By: #### C MP, LIPID #### [facility] [address] [place] [address] Dr. Angel Harding EGFR-AF CITIZEN [place] >60 Normal >=60 [facility] Comment on above: Performed By: #### C MP, LIPID #### [facility] [address] [place] [address] Dr. Angel Harding EGFR-NON AF CITIZEN OF [place] >60 Normal >=60 [facility] Comment on above: Performed By: #### C MP, LIPID #### [facility] [address] [place] [address] Dr. Angel Harding Globulin (S) [Mass/Vol] 3.7 g/dL Normal [facility] Comment on above: Performed By: #### C MP, LIPID #### [facility] [address] [place] [address] Dr. Angel Harding Glucose [Mass/Vol] 114 mg/dL Critically high 74-[address] [facility] Comment on above: Performed By: #### C MP, LIPID #### [facility] [address] [place] [address] Dr. Angel Harding Potassium [Moles/Vol] 4.7 mmol/L Normal 3.5-5.1 [facility] Comment on above: Performed By: #### C MP, LIPID #### [facility] [address] [place] [address] [address] Angel Harding Protein [Mass/Vol] 7.5 g/dL Normal 6.1-8.2 [facility] Comment on above: Performed By: #### C MP, LIPID #### [facility] [address] [place] [address] [address] Angel Harding Sodium [Moles/Vol] 140 mmol/L Normal 136-145 [facility] Comment on above: Performed By: #### C MP, LIPID #### [facility] [address] [place] [address] [address] Angel Harding Urea nitrogen [Mass/Vol] 12.0 mg/dL Normal 7.0-18.0 [facility] Comment on above: Performed By: #### C MP, LIPID #### [facility] [address] [place] [address] [address] Angel Harding Urea nitrogen/Creatinine [Ma ss ratio] 14.5 mg/mg Normal [facility] Comment on above: Performed By: #### C MP, LIPID #### [facility] [address] [place] [address] [address] Angel Harding Operative Reporton 8 Operative Report MR#: [id number] [facility] Pt. Name: Cristi [facility] #: [id number] Discharge Date: Birthdate: 1975 OPERATIVE REPORTDATE OF SURGERY: 07/01/2018SURGEON: DEJUAN ArtisREOPERATIVE DIAGNOSIS: Rectal bleeding.POSTOPERAT PATRICIA DIAGNOSIS: Right posterior mixed internal and externalhemorrhoids .PROCEDURES:1. Excision of mixed right posterior internal and external hemorrhoids.2. Exparel was used to do a perianal block.ANESTHESIA: MAC.COMPLICATIONS: None.INDICATION FOR PROCEDURE: This is a 42-year-old male presented to [facility] with rectal pain and bleeding. Decision was [...] Solorio MD 07/01/2018 12:20 P S ian Solorio MDDate Dict: 07/01/2018/09:02 A/NARCISO Artisate Trans: 07/01/2018 11:00 [id number]/ [id number] Normal [facility] POC GLUCOSE LABon 07-01-2018 Glucose mass conc 101 mg/dL High 70-100 [facility] Comment on above: Performed By: #### [id number] ####[place] [id number] [address] Vital Signs Date Time Vital Sign Value Performing Clinician Emmy maynard 03-01-2025 08:46-0400 Body height 198.1 cm Cristi Dave MD Work Phone: [facility] 03-01-2025 08:46-0400 Body mass index (BMI) [Ratio] 28.43 kg/m2 Cristi Dave MD Work Phone: [facility] 03-01-2025 08:46-0400 Body temperature 97.11 [degF] Cristi Dave MD Work Phone: [facility] 03-01-2025 08:46-0400 Body weight 111.58 kg Cristi Dave MD Work Phone: [facility] 03-01-2025 08:46-0400 Diastolic blood pressure 68 mm[Hg] Cristi Dave MD Work Phone: [facility] 03-01-2025 08:46-0400 Heart rate 78 /min Cristi Dave MD Work Phone: [facility] 03-01-2025 08:46-0400 Respiratory rate 18 /min Cristi Dave MD Work Phone: [facility] 03-01-2025 08:46-0400 SaO2% (BldA) [Mass fraction] 98 % Cristi Dave MD Work Phone: [facility] 03-01-2025 08:46-0400 Systolic blood pressure 144 mm[Hg] Cristi Dave MD Work Phone: [facility] 07-27-2024 08:20-0400 Body height 198.1 cm Rosie Gutierrez [employer] Work Phone: [facility] 07-27-2024 08:20-0400 Body mass index (BMI) [Ratio] 28.27 kg/m2 Rosie Gutierrez [employer] Work Phone: [facility] 07-27-2024 08:20-0400 Body temperature 96.3 [degF] Rosie Gutierrez [employer] Work Phone: [facility] 07-27-2024 08:20-0400 Body weight 110.95 kg Rosie Gutierrez [employer] Work Phone: [facility] 07-27-2024 08:20-0400 Diastolic blood pressure 60 mm[Hg] Rosie Gutierrez [employer] Work Phone: [facility] 07-27-2024 08:20-0400 Heart rate 87 /min Rosie Gutierrez [employer] Work Phone: [facility] 07-27-2024 08:20-0400 Respiratory rate 16 /min Rosie Gutierrez [employer] Work Phone: [facility] 07-27-2024 08:20-0400 SaO2% (BldA) [Mass fraction] 98 % Rosie Hendricksonpatrick [employer] Work Phone: [facility] 07-27-2024 08:20-0400 Systolic blood pressure 138 mm[Hg] Rosie Hendricksonpatrick [employer] Work Phone: [facility] Healthcare Encounters Encounter Date Encounter Type Care Provider Facility Start: 05-04-2025 End: 05-04-2025 Refill Cristi Dave MD Work Phone: [facility] Comment on above: Obstructive sleep ap lionel Start: 04-05-2025 End: 04-05-2025 Refill Cristi Dave MD Work Phone: [facility] Comment on above: Obstructive sleep ap lionel Start: 03-06-2025 End: 03-06-2025 Refill Cristi Dave MD Work Phone: [facility] Comment on above: Obstructive sleep ap lionel Start: 03-01-2025 End: 03-01-2025 Bamboo flowsbreanna Dave MD Work Phone: [facility] Start: 03-01-2025 End: 03-01-2025 Bamboo flowsheet Cristi Dave MD Work Phone: [facility] Start: 03-01-2025 End: 03-01-2025 Office outpatient visit 15 minutes Cristi Dave MD Work Phone: [facility] Comment on above: Primary hypertension (CMS/HCC) (Primary Dx); SILVIA (obstructive sleep apnea); Back pain of thoracolumbar region Start: 03-01-2025 End: 03-01-2025 ambulatory CRISTI DAVE Not Available Start: 01-31-2025 End: 01-31-2025 Refill Cristi Dave MD Work Phone: [facility] Comment on above: Obstructive sleep ap lionel Start: 01-02-2025 End: 01-02-2025 Refill Cristi Dave MD Work Phone: [facility] Comment on above: Obstructive sleep ap lionel Start: 12-26-2024 End: 12-27-2024 Clinisync Result Encounter Generic External Data Provider [facility] Unsolicited Start: 12-26-2024 End: 12-27-2024 Clinisync Result Encounter Generic External Data Provider [facility] Unsolicited Start: 10-24-2024 End: 10-26-2024 Refill Amy Huerta MA [facility] Comment on above: Obstructive sleep ap lionel Start: 10-11-2024 End: 10-11-2024 Refill Rosie Vermazpatrick [employer] Work Phone: [facility] Comment on above: Primary hypertension (CMS/HCC) Start: 09-19-2024 End: 09-21-2024 Refill Amy Huerta MA [facility] Comment on above: Obstructive sleep ap lionel Start: 08-17-2024 End: 08-18-2024 Refill Amy Huerta MA [facility] Comment on above: Obstructive sleep ap lionel Start: 07-27-2024 End: 07-27-2024 Bamboo flowsheet Rosie Gutierrez [employer] Work Phone: [facility] Start: 07-27-2024 End: 07-27-2024 Bamboo flowsheet Rosie Gutierrez [employer] Work Phone: [facility] Start: 07-27-2024 End: 07-27-2024 Office outpatient visit 15 minutes Rosie Gutierrez [employer] Work Phone: [facility] Comment on above: Primary hypertension (CMS/HCC) (Primary Dx); SILVIA (obstructive sleep apnea); Back pain of thoracolumbar region; Obstructive sleep apnea Start: 07-27-2024 End: 07-27-2024 ambulatory ROSIE GUTIERREZ Not Available Start: 07-18-2024 End: 07-20-2024 Refill Jacob Sánchez MA [facility] Comment on above: Obstructive sleep ap lionel Start: 06-18-2024 End: 06-20-2024 Refill Rosie Gutierrez [employer] Work Phone: [facility] Start: 04-20-2024 Patient encounter status Adilia Gutierrez [employer] Work Phone: [facility] Start: 04-20-2024 End: 04-20-2024 ambulatory SHAIKH SYMONE Not Available Start: 12-10-2023 Orders Only Shaikh Symone CAMACHO Work Phone: [facility] Comment on above: Primary hypertension (CMS/HCC) (Primary Dx); Obstructive sleep apnea Start: 01-22-2023 End: 01-23-2023 ambulatory ALAINA RODRIGUEZ . Facility: Start: 10-24-2022 End: 10-25-[address] ROSAS STEINER . Facility: Start: 07-16-2022 End: 07-17-[address] ROSAS STEINER . Facility: Start: 04-03-2022 End: 04-04-2022 ambulatory SHAIKH Asuncion ASHBY Facility: Start: 02-20-2022 End: 02-21-2022 ambulatory SHAIKH Asuncion ASHBY Facility: Start: 07-01-2018 End: 07-02-2018 Patient encounter procedure EDEN SOLORIO Facility:[facility] Start: 06-08-2018 End: 06-09-2018 Patient encounter procedure DEFAULT PHYSICIAN Facility:[facility] Procedures Date Procedure Procedure Detail Performing Clinician Start: 12-26-2024 XR LUMBAR SPINE 6V W BENDING Generic External Data Provider Start: 07-27-2024 Drug test prsmv read direct optical obs pr date Rosie Gutierrez [employer] Work Phone: Start: 07-01-2018 ANESTH ANORECTAL SURGERY JENNY COLUNGA Start: 07-01-2018 REMOVE BY LIGAT INT HEM GRP EDEN SOLORIO Start: 05-21-2018 Colonoscopy Rosie ramos [employer] Work Phone: Plan of Treatment Date Care Activity Detail Author Start: 05-21-2028 Screening for malign ant neoplasm of colon [facility] Start: 09-04-2025 End: 09-04-2025 Patient encounter procedure 09/04/2025 8:30 AM EST Office Visit [facility] [address] [place] [phone] Cristi Dave MD [address] [place] [phone] [facility] Start: 06-26-2025 Influenza vaccination [facility] Start: 03-01-2025 End: 03-01-2025 [facility] Comment on above: Arrived Start: 01-25-2025 End: 01-25-2025 Patient encounter procedure 01/25/2025 8:30 AM EDT Office Visit [facility] [address] [place] [phone] Rosie Gutierrez NP [address] [place] [address] [facility] Start: 07-27-2024 End: 07-27-2024 [facility] Comment on above: Primary hypertension (CMS/HCC) (Primary Dx); SILVIA (obstructive sleep apnea); Back pain of thoracolumbar region Start: 06-26-2024 Influenza vaccination Influenza Vacc ine (#1) [facility] Start: 06-26-2023 Influenza vaccination Influenza Vacc ine (#1) [facility] Start: 1975 Screening for malign ant neoplasm of colon [facility] Immunizations Immunization Date Immunization Notes Care Provider Fa madisyn 06-08-2019 tetanus toxoid, redu monica diphtheria toxoid, and acellular pertussis vaccine, adsorbed Rosie Gutierrez NP Work Phone: [facility] Healthcare Payers Date Payer Category Payer Private Health Insurance [id number] 1975 Unknown [id number] [id number] 1976 Unknown [id number] 2.16.8 [id number] 1976 Unknown [id number] 2.16.84 [id number] 1976 Unknown [id number] 2.16.84 [id number] 1976 Unknown [id number] 2.16.84 [id number] 1976 Unknown [id number] 2.16.84 [id number] 1976 Unknown [id number] 2.16.84 [id number] 1976 Unknown [id number] 2.16.84 [id number] 1976 Unknown [id number] 2.16.84 [id number] 1976 Unknown [id number] 2.16.84 [id number] 1959 Unknown [id number] Unknown Social History Date Type Detail Facility Tobacco smoking stat [facility] Tobacco smoking consumption unknown [facility] Start: 1975 Sex Assigned At Not on file [facility] Start: 04-20-2024 End: 03-01-2025 Gender identity Not on file [facility] Start: 04-20-2024 [facility] History of tobacco use Cigarette Smoker [facility] History of tobacco use Passive smoker [facility] Start: 04-20-2024 Tobacco use and exposure User of smo keless tobacco [facility] History of tobacco use Chews Tobacco [facility] Start: 04-20-2024 End: 03-01-2025 Alcoholic beverage intake Current drinker of alcohol (finding) [facility] Start: 04-20-2024 End: 03-01-2025 History of Social function [facility] Clinical Notes 04-03-2022 to 03-01-2025 Cristi Dave MD - 03/01/2025 9:29 AM EDLuh Dave MD - 03/01/2025 9:29 AM Sarita Dave MD - 03/01/2025 9:29 AM Sarita Dave MD - 03/01/2025 8:30 AM EDT Note Date & Type Note Facility 03-01-2025 History of Presen t illness Narrative Associated Problem(s): Primary hypertension (CMS/HCC) BP slightly elevated and monitor PRN. Associated Problem(s): SILVIA (obstructive sleep apnea) Fatigue controlled with adderall and continue. Associated Problem(s): Back pain of thoracolumbar region Pain stable and follow with pain management. Images from the original note were not included. Subjective Patient ID: Cristi Honeycutt is a 49 y.o. male who presents for Follow-up (6m). Follow up HTN, SILVIA, and back pain. Not checking BP away from office and slightly elevated today. Taking medication daily and tolerating without side effects. SILVIA controlled with adderall. Not as much fatigue during day and functioning well. Not falling asleep. Tried CPAP in past but did not tolerate machine and pressure. Follows with pain management for back pain. Review of Systems Constitutional: Negative for fatigue. Respiratory: Negative for cough, shortness of breath and wheezing. Cardiovascular: Negative for chest pain and palpitations. Gastrointestinal: Negative for abdominal pain, diarrhea, nausea and vomiting. Genitourinary: Negative for dysuria. Objective Physical Exam Constitutional: General: He is not in acute distress. Appearance: Normal appearance. HENT: Head: Normocephalic. Right Ear: Tympanic membrane and ear canal normal. Left Ear: Tympanic membrane and ear canal normal. Eyes: Extraocular Movements: Extraocular movements intact. Pupils: Pupils are equal, round, and reactive to light. Cardiovascular: Rate and Rhythm: Normal rate and regular rhythm. Heart sounds: No murmur heard. No friction rub. No gallop. Pulmonary: Breath sounds: Normal breath sounds. No wheezing, rhonchi or rales. Abdominal: General: Bowel sounds are normal. There is no distension. Palpations: Abdomen is soft. Tenderness: There is no abdominal tenderness. There is no guarding or rebound. Musculoskeletal: Left lower leg: No edema. Neurological: Mental Status: He is alert. Assessment/Plan Problem List Items Addressed This Visit Back pain of thoracolumbar region Pain stable and follow with pain management. Primary hypertension (CMS/HCC) - Primary BP slightly elevated and monitor PRN. SILVIA (obstructive sleep apnea) Fatigue controlled with adderall and continue. documented in this encounter [facility] 10-24-2024 Telephone encount er Note Pt ran out over the holidays. MIMI:07/27/2024 NOV:01/25/2025 [facility] 10-24-2024 Miscellaneous Notes Formattin g of this note might be different from the original. Pt ran out over the holidays. MIMI:07/27/2024 NOV:01/25/2025 documented in this encounter [facility] 09-19-2024 Telephone encount er Note MIMI:07/27/2024 NOV:01/25/2025 [facility] 09-19-2024 Miscellaneous Notes Formattin g of this note might be different from the original. MIMI:07/27/2024 NOV:01/25/2025 documented in this encounter [facility] 08-17-2024 Telephone encount er Note P requesting a refill on his Adderall. MIMI:07/27/2024 NOV:01/25/2025 [facility] 08-17-2024 Miscellaneous Notes Formattin g of this note might be different from the original. P requesting a refill on his Adderall. MIMI:07/27/2024 NOV:01/25/2025 documented in this encounter [facility] 07-27-2024 History of Presen t illness Narrative [...] were not included. Subjective Patient ID: Cristi Higginbotham Yinka is a 48 y.o. male who presents [...] Obstructive sleep apnea documented in this encounter [facility] 01-22-2023 Note CONSULTATION CONSULTATION DATE: 01/22/2023 TO: [...] secondary to the strained patient/physician relationship. [facility] 10-24-2022 Note CONSULTATION CONSULTATION DATE: 10/24/2022 HISTORY [...] is compliant with his medications. 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 This morning, [...] three months' time, unless otherwise indicated. [facility] 07-16-2022 Note CONSULTATION CONSULTATION DATE: 07/16/2022 HISTORY [...] Patient is in agreement to this. [facility] 04-03-2022 Note CONSULTATION CONSULTATION DATE: 04/03/2022 HISTORY [...] his mid upper back. 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 [facility] Signed and Approved by: STAR MOLINA . 04/10/2022 16:02:00 [facility] Evaluation note Diagnosis Primary hypertension (CMS/HCC)- Primary Unspecified essential hypertension Obstructive sleep apnea Obstructive sleep apnea (adult) (pediatric) documented in this encounter [facility] HealthcareEvaluation note* Diagnosis Primary hypertension (CMS/HCC)- Primary Unspecified essential hypertension SILVIA (obstructive sleep apnea) Obstructive sleep apnea (adult) (pediatric) Back pain of thoracolumbar region Obstructive sleep apnea Obstructive sleep apnea (adult) (pediatric) documented in this encounter [facility] HealthcareEvaluation note* Diagnosis SILVIA (obstructive sleep apnea)- [...] (adult) (pediatric) Back pain of thoracolumbar region [facility] [...] Obstructive sleep apnea (adult) (pediatric) Primary hypertension Unspecified essential hypertension Back pain of thoracolumbar region Current smoker Wellness examination Obstructive sleep apnea Obstructive sleep apnea (adult) (pediatric) Primary hypertension- Primary Unspecified essential hypertension SILVIA (obstructive sleep apnea) Obstructive sleep apnea (adult) (pediatric) Back pain of thoracolumbar region Obstructive sleep apnea Obstructive sleep apnea (adult) (pediatric) Primary hypertension- Primary Unspecified essential hypertension SILVIA (obstructive sleep [...] section and content) DATE CREATED AUTHOR 10/21/2018 [facility] DATE CREATED AUTHOR AUTHOR'S ORGANIZ ATION 01/31/2023 [facility] DATE CREATED AUTHOR AUTHOR'S ORGANIZ ATION 03/03/2025 [facility] EPIC Care Teams (unrecognized sec tion and content) Network Administrator Relationship Specialty Start Date End Date Shaikh Ashby MD PCP - General Internal Medicine 05/13/23 Network Administrator Relationship Specialty Start Date End Date Cristi Dave MD [address] [place] [phone] PCP - General Family Medicine 06/07/24 Rosie Gutierrez NP [address] [place] [address] Nurse Practitioner Family Medicine 06/07/24 Network Administrator Relationship Specialty Start Date End Date Cristi Dave MD [address] [place] [phone] PCP - General Family Medicine 06/07/24 Rosie Gutierrez NP [address] [place] [address] Nurse Practitioner Family Medicine 06/07/24 Network Administrator Relationship Specialty Start Date End Date Cristi Dave MD [address] [place] [phone] PCP - General Family Medicine 06/07/24 Rosie Gutierrez NP [address] [place] [address] Nurse Practitioner Family Medicine 06/07/24 Network Administrator Relationship Specialty Start Date End Date Cristi Dave MD [address] [place] [phone] PCP - General Family Medicine 06/07/24 Rosie Gutierrez NP [address] [place] [address] Nurse Practitioner Family Medicine 06/07/24 Network Administrator Relationship Specialty Start Date End Date Cristi Dave MD [address] [place] [phone] PCP - General Family Medicine 06/07/24 Rosie Gutierrez NP [address] [place] [address] Nurse Practitioner Family Medicine 06/07/24 Network Administrator Relationship Specialty Start Date End Date Cristi Dave MD [address] [place] [phone] PCP - General Family Medicine 06/07/24 Rosie Gutierrez NP [address] [place] [phone] Nurse Practitioner Family Medicine 06/07/24 Network Administrator Relationship Specialty Start Date End Date Cristi Dave MD [address] [place] [phone] PCP - General Family Medicine 06/07/24 Rosie Gutierrez NP [address] [place] [phone] Nurse Practitioner Family Medicine 06/07/24 Network Administrator Relationship Specialty Start Date End Date Cristi Dave MD [address] [place] [phone] PCP - General Family Medicine 06/07/24 Rosie Gutierrez NP [address] [place] [phone] Nurse Practitioner [facility] Medicine 06/07/24 Network Administrator Relationship Specialty Start Date End Date Cristi Dave MD [address] [place] [phone] PCP - General Family Medicine 06/07/24 Rosie Gutierrez NP [address] [place] [phone] Nurse Practitioner [facility] 06/07/24 Network Administrator Relationship Specialty Start Date End Date Cristi Dave MD [address] [place] [phone] PCP - General Family Medicine 06/07/24 Rosie Gutierrez NP [address] [place] [phone] Nurse Practitioner [facility] 06/07/24 Reason for Visit (unrecogniz ed section and content) Reason Comments Med Refill Reason Onset Date Comments Med Refill 08/17/2024 Reason Onset Date Comments Med Refill 09/19/2024 Reason Onset Date Comments Med Refill 07/18/2024 Reason Onset Date Comments Med Refill 10/24/2024 Reason Onset Date Comments Med Refill 01/02/2025 Reason Onset Date Comments Med Refill 01/31/2025 Reason Comments Follow-up 6m Reason Onset Date Comments Med Refill 03/06/2025 Reason Onset Date Comments Med Refill 04/05/2025 Reason Onset Date Comments Med Refill 05/04/2025 FOR RECORDS PERTAINING TO PATIENTS WHO ARE [...] BE BASED ON THE PRIMARY CLINICAL RECORDS. [facility]. provides no warranty or guarantee of the accuracy or completeness of information in this document.
--- NOTE | 2025-05-25 07:56 | PM.CN ---
Consult Note: HPI Data of Consult Patient: known to practice within the last 3 years Requesting Physician: Emma Albert NP Primary Care Provider: LUIS CARLOS TORREZ Consult Narrative Reason for consult: f/u Narrative: Cristi Honeycutt a 49 year old male presents for evaluation and management of chronic back pain and bilateral knee pain. Today rating dull pain 3/10, reports it gets up to a 10/10 at times. Patient reports pain is well controlled since last visit and he continues to be active with work. Pain increased with long periods of sitting and improved with activity. Patient continues to report he cannot afford imaging, PT, injection therapy. Patient finds no improvement with HEP and physical labor at home. Patient continues to report functional improvement and benefit from current medication regimen. recent lumbar xray consistent with facet arthropathy and L5-S1 DDD, unfortunately it cost the patient $800 to undergo and he cannot afford imaging and interventions. pt utilizing meloxicam 15mg daily, percocet 5-325mg bid-tid prn moderate to severe pain, and tizanidine prn. patient reports no change in his pain from prior visit, remains unchanged. cc:: CC: Emma Albert NP Review of Systems ROS Status of ROS 10 or more systems reviewed and unremarkable except as noted in history and below Musculoskeletal Reports: back pain, extremity pain and joint pain Meds Home Medications and Allergies Home Medications ?Medication ?Instructions ?Recorded ?Confirmed ?Type dextroamphetamine-amphetamine 10 10 mg PO DAILY 05/14/23 05/14/23 History mg tablet (Adderall) losartan 100 mg tablet 100 mg PO DAILY 05/14/23 05/14/23 History tizanidine 4 mg tablet 8 mg PO BEDTIME PRN muscle spasm 05/14/23 05/14/23 History naloxone 4 mg/actuation nasal 1 spray intranasal Q3M PRN opioid 08/19/23 Rx spray (Narcan) overdose #2 ea meloxicam 15 mg tablet 15 mg PO DAILY #90 tabs 09/01/24 Rx oxycodone-acetaminophen 5 mg-325 1 tab PO TID PRN pain #70 tabs 03/09/25 Rx mg tablet (Percocet) meloxicam 15 mg tablet 15 mg PO DAILY #90 tabs 04/06/25 Rx oxycodone-acetaminophen 5 mg-325 See Rx Instructions .Route 04/06/25 Rx mg tablet (Percocet) .COMPLEX PRN pain #70 tabs oxycodone-acetaminophen 5 mg-325 See Rx Instructions .Route 05/04/25 Rx mg tablet (Percocet) .COMPLEX PRN pain #70 tabs Allergies Allergy/AdvReac Type Severity Reaction Status Date / Time No Known Drug Allergies Allergy Verified 05/14/23 09:27 Exam Constitutional Documenting provider has reviewed patient's vital signs: yes Common normals: no apparent distress, oriented x3, healthy appearing, alert and well nourished General appearance: cooperative HENMT Common normals: normocephalic, hearing grossly normal bilaterally and moist oral mucous membranes Head and scalp: normocephalic Eye Common normals: PERRL Pupil: PERRL Neck & C-Spine Common normals: full ROM General: normal visual inspection Chest Common normals: inspection of chest normal Respiratory Common normals: normal respiratory effort, no retractions and no use of accessory muscles Back & Pelvis Thoracic spine/upper back: ROM limited and pain with ROM Lumbar spine/lower back: ROM limited, pain with ROM and straight leg raise negative bilaterally Sacroiliac joints: SI joints normal Other: positive facet loading lumbar spine worse on left than right Extremity Common normals: normal to inspection and full ROM Right lower extremity: knee joint Left lower extremity: knee joint Other: mild edema, no instability noted. no change in pain with medial and lateral stress testing. Neuro Common normals: oriented x3 Sensorium/orientation: alert Motor exam: strength 5/5 throughout and no movement abnormalities noted Psych Common normals: mental status grossly normal, thought process normal, cooperative, affect normal, speech normal and activity/motor behavior normal Speech: normal speech Thought process: normal thought process Results Additional Findings Additional findings: If on a controlled substance or opioids, I have checked an [place]AR[place] report on this patient and there are no aberrancies noted in the prescribing history.??If on a controlled substance or opioid a drug screen was completed and reviewed within the last year, and if there has not been a drug screen completed we ordered one today to monitor higher risk, state monitored pain medication use. As part of providing excellent, safe, comprehensive care, the following was completed at our patient's visit: 1. A medication reconciliation and review to ensure accurate knowledge of current/active medications, including asking our patients to inform us about any [id number] medications or herbal remedies/nutritional supplements/alternative remedies. 2. A review to specifically ensure our patients have had annual screening for screening for depression, screening for tobacco use, and screening for unhealthy alcohol use. For concerning screenings had a discussion with the patient, provided patient education, and recommended follow-up with primary care provider when appropriate. If patient noted with a risk of falling, they received education on strength, gait, and balance training to prevent future risk of falling. Portions of this note may have been carried over from the previous visit and updated as appropriate. Please note this office utilizes paper charting in addition to the electronic medical record. A list of current medications, vitals, and PMH is available there as the clinical staff outside of myself do not have access to [email or web address] charting during the clinic day operations. As part of providing quality comprehensive care the current medications, vitals, and PMH were reviewed in the paper chart. Assessment and Plan Assessment and Plan (1) Lumbar spondylosis: (2) Chronic prescription opiate use: (3) Muscle spasm: (4) Spondylolysis, thoracic region: (5) Lumbar stenosis with neurogenic claudication: (6) DDD (degenerative disc disease), lumbar: Plan continues to report pain relief and functional ability from current medication regimen, cannot afford interventional therapy continue percocet 5-325mg TID PRN moderate to severe pain 70 tabs/month, continues to report functional improvement. continue mobic 15mg daily and PRN tizanidine. denies side effects from medication regimen continue heat/ice PRN continue HEP as tolerated f/u 3 months, sooner if needed
== END 2025-05-25 07:50 | disposition home or self-care (01) ==
LOC: PM 07:49
PROVIDERS: Visit Provider Nurse Practitioner
DX: M47.816 Spondylosis without myelopathy or radiculopathy, lumbar region (principal); Z79.891 Long term (current) use of opiate analgesic; M62.838 Other muscle spasm; M47.814 Spondylosis without myelopathy or radiculopathy, thoracic region; M48.062 Spinal stenosis, lumbar region with neurogenic claudication; M51.369 Other intervertebral disc degeneration, lumbar region without mention of lumbar back pain or lower extremity pain
CPT/HCPCS: G0463

== ENCOUNTER 2025-08-24 07:50 | Outpatient (OUT) | payer OTHER, SELFPAY ==
--- OUTSIDE RECORDS SUMMARY | 2025-08-24 07:53 | XMS_ITS | Clinical Summary ---
Author Organization [facility] Address [address] [place] [address] Care Team Providers Care Assistant Vice President Name Role Phone Cristi Crisostomo MD Primary Care Provider [phone] Rosie Gutierrez [employer] E[employer]OMIST Unavailable [phone] Allergies No known active allergies Medications MedicationSigDispense QuantityRefillsLast FilledStart DateEnd DateStatus meloxicam (Mobic) 15 MG tablet Take 15 mg by mouth in the morning.09/24/2023ctive naloxone (Narcan) 4 mg/0.1 mL nasal spray Administer 4 mg into affected nostril(s) if yryylt7908/19/2023ctive oxyCODONE-acetaminophen (Percocet) 5-325 MG tablet Take 1 tablet by mouth every 8 (eight) hours if needed for moderate painActive trimethoprim-polymyxin b (Polytrim) ophthalmic solution Administer 1 drop into both eyes every 6 (six) hours3Active tiZANidine (Zanaflex) 4 MG tablet TAKE 2 TABLETS BY MOUTH EVERYDAY AT BEDTIME NEEDED FOR MUSCLE SPASTICITY 06/22/2024ctive losartan (Cozaar) 100 MG tablet Indications:Primary hypertensionTAKE 1 TABLET BY MOUTH EVERY DAY IN THE MORNING 30 tablet 5Active amphetamine-dextroamphetamine (Adderall) 10 MG tablet Indications:Obstructive sleep apneaTake 1 tablet (10 mg) by mouth Daily 30 tablet 5Active Active Problems ProblemNoted DateDiagnosed DateBack pain of thoracolumbar kvlxrh8104/20/2024 Assessment & Plan (03/01/2025 9:29 AM EDT): Pain stable and follow with pain management. Assessment & Plan (07/27/2024 8:50 AM EDT): Follows PM; Taking Percocet 5/325mg TID. Feels symptoms are well controlled with regimen. Assessment & Plan (04/20/2024 1:46 PM EDT): Chronic thoracolumbar back, on percocet. Follows [facility]. Prior hx of discectomy. Primary ixjlxcpffwxn83/26/2024 Assessment & Plan (03/01/2025 9:29 AM EDT): BP slightly elevated and monitor PRN. Assessment & Plan (07/27/2024 8:49 AM EDT): Currently taking Losartan 100mg Does not check BP at home; BP above goal in office. Given BP log, advised pt to record BP and bring log back with them to next visit. Denies orthostatic changes, dizziness, cough, shortness of breath, swelling in extremities. Continue current regimen. Assessment & Plan (04/20/2024 1:45 PM EDT): Above goal. Supposed to be on Losartan. But ran out of it. Has not been seen since 05/17 Patient educated on importance of compliance, usually well controlled when he uses it. Will check Labs - CBC, CMP SILVIA (obstructive sleep apnea)04/20/2024 Assessment & Plan (03/01/2025 9:29 AM EDT): Fatigue controlled with adderall and continue. Assessment & Plan (07/27/2024 8:48 AM EDT): Does not wear CPAP, never has. Is currently taking 10mg Adderall daily; Feels medication helps with daytime drowsiness. [place]ARRS reviewed. CSA signed. Continue current regimen. Assessment & Plan (04/20/2024 1:50 PM EDT): Unable to use CPAP, never able to use it consistently. Uses low dose Adderrall daily, otherwise he has difficulty working/driving and dozes off if he is not using Adderall. Current bqilsh9104/20/2024 Assessment & Plan (04/20/2024 1:45 PM EDT): Patient counseled on smoking/tobacco cessation. Patient educated on harmful effects of smoking cigarettes/tobacco including increased risk of cardiovascular diseases, chronic lung disease and multiple cancers. Patient was educated and informed of different behavioral and therapeutic interventions that can help with smoking/tobacco use. Patient's questions/concerns were addressed and answered related to therapeutic options. Patient was offered help and encouraged to reach out to provider if/when they are ready to quit. Wellness fwdciovnblw73/26/2024 Assessment & Plan (04/20/2024 1:46 PM EDT): Patient here for Annual Wellness Exam. Reviewed medical, surgical and social hx. Reviewed medication list. Health related questions and concerns addressed and answered. Patient provided appropriate education on chronic medical conditions and prescription medications. Encounters DateTypeDepartmentCare DiisTxemknrxvtw77/07/2025Refill [facility] [address] [place] [address] Cristi Crisostomo MD Obstructive sleep apneafrom Last 3 Months Immunizations ImmunizationAdministration DatesNext OwxLbmt6706/08/2019 Family History Medical HistoryRelationNameCommentsHeart attackFatherMultiple sclerosisMother RelationNameStatusCommentsFatherAliveMotherAlive Social History Tobacco UseTypesPacks/DayYears UsedDateSmoking Tobacco: Every DayCigarettes Passive Smoke Exposure: CurrentSmokeless Tobacco: CurrentChew Tobacco Cessation:Ready to Q uit: Not Asked; Counseling Given: Not Answered Alcohol UseStandard Drinks/WeekCommentsYes0 (1 standard drink = 0.6 oz pure alcohol)Sex and Gender InformationValueDate RecordedSex Assigned at BirthNot on fileLegal NesOjnz3101/07/2023 8:24 PM EDTGender IdentityNot on fileSexual OrientationNot on file Last Filed Vital Signs Vital SignReadingTime TakenCommentsBlood Yhrlicwj752/6805 8:46 AM EDT Jkisi4235 8:46 AM QAASgkbwqlyuga35.2 ??C (97.1 ??F)03/01/2025 8:46 AM EDTRespiratory Zqxo757103/01/2025 8:46 AM EDTOxygen Ptewuucmqw10%03/01/2025 8:46 AM EDTInhaled Oxygen Concentration--Zdueha314 kg (246 lb)03/01/2025 8:46 AM EDT Rljhqr948.1 cm (6' 6 )03/01/2025 8:46 AM EDTBody Mass Index28.43003/01/2025 8:46 AM EDT Plan of Treatment Not on file Insurance Care Teams Team MemberRelationshipSpecialtyStart DateEnd Date Cristi Crisostomo MD PCP - GeneralFamily Medicine06/07/24 Rosie Gutierrez NP Nurse PractitionerFamily Medicine06/07/24
--- OUTSIDE RECORDS SUMMARY | 2025-08-24 07:54 | XMS_ITS | CCD ---
Author Organization [facility] Care Team Providers Care Global Engineering Manager Name Role Phone PHYSICIAN, DEFAULT Unavailable Unavailable PHYSICIAN, DEFAULT Unavailable Unavailable EDEN SOLORIO Unavailable Unavailable EDEN SOLORIO Unavailable Unavailable SELF, REFERRED Unavailable Unavailable SELF, REFERRED Unavailable Unavailable [place] Unavailable Unavailable EDEN SOLORIO Unavailable Unavailable NV Unavailable Unavailable JENNY COLUNGA Unavailable Unavailable FAWWAD, [...] Unavailable Shaikh Ashby MD Primary Care Provider [phone] Cristi Dave MD Primary Care Provider [phone] Brenda AUTOMATIC NAILING MACHINE OPERATOR, Rosie Unavailable Brenda AUTOMATIC NAILING MACHINE OPERATOR, Rosie Unavailable [phone] CRISTI DAVE Attending Unavailable SHAIKH ASHBY Attending Unavailable GUTIERREZ, ROSIE Attending Unavailabl e Medications Current Medications MedicationDrug Class(es)DatesSig (Normalized)Sig (Original)acetaminophen 325 mg / oxyCODONE hydrochloride 5 mg oral tablet (19 sources)Opioid Agonisttake 1 tablet by mouth every eight hours as needed for painoxyCODONE-acetaminophen (Percocet) 5-325 MG tablet Take 1 tablet by mouth every 8 (eight) hours if needed for moderate pain Activelosartan potassium 100 mg oral tablet (20 sources)Angiotensin 2 Receptor BlockerStart: 42-85-3263fwfw 1 tablet by mouth once daily in the morninglosartan (Cozaar) 100 MG tablet Indications: Primary hypertension TAKE 1 TABLET BY MOUTH EVERY DAY IN THE MORNING 30 tablet 2 04/18/2025 ActiveStart: 56-20-0712xyil 1 tablet by mouth in the morninglosartan (Cozaar) 100 MG tablet Indications: Primary hypertension (CMS/HCC) Take 1 tablet (100 mg) by mouth in the morning. 90 tablet 01/11/2025 ActiveStart: 04-20-2024 End: 89-61-7531sugn 1 tablet by mouth once daily in the morninglosartan (Cozaar) 100 MG tablet Indications: Primary hypertension (CMS/HCC) TAKE 1 TABLET BY MOUTH EVERY DAY IN THE MORNING 90 tablet 10/11/2024 ActiveStart: 09-21-2023 End: 16-77-9146qzow 1 tablet by mouth in the morninglosartan (Cozaar) 100 MG tablet Indications: Primary hypertension (CMS/HCC) Take 1 tablet (100 mg) by mouth in the morning. 90 tablet 0 12/10/2023 03/09/2024 Activemeloxicam 15 mg oral tablet (19 sources)Nonsteroidal Anti-inflammatory DrugStart: 94-66-8286psyx 1 tablet by mouth in the morningmeloxicam (Mobic) 15 MG tablet Take 15 mg by mouth in the morning. 09/24/2023 Activenaloxone hydrochloride 40 mg/ml nasal spray (19 sources)Opioid AntagonistStart: 90-63-6216ckposqyz (Narcan) 4 mg/0.1 mL nasal spray Administer 4 mg into affected nostril(s) if needed 08/19/2023 Active polymyxin b 69796 unt/ml / trimethoprim 1 mg/ml ophthalmic solution (19 sources)Dihydrofolate Reductase Inhibitor Antibacterial, Polymyxin-class AntibacterialStart: 30-84-0580tnwa 1 drop(s) into the eye(s) every six hours trimethoprim-polymyxin b (Polytrim) ophthalmic solution Administer 1 drop into both eyes every 6 (six) hours 04/13/2023 ActivetiZANidine 4 mg oral tablet (5 sources)Central alpha-2 Adrenergic AgonistStart: 68-04-0759bxpl 2 tablets by mouth once daily at bedtime as neededtiZANidine (Zanaflex) 4 MG tablet TAKE 2 TABLETS BY MOUTH EVERYDAY AT BEDTIME NEEDED FOR MUSCLE SPASTICITY 06/22/2024 Active Completed/Discontinued Medications MedicationDrug Class(es)DatesSig (Normalized)Sig (Original)amphetamine aspartate 2.5 mg / amphetamine sulfate 2.5 mg / dextroamphetamine saccharate 2.5 mg / de xtroamphetamine sulfate 2.5 mg oral tablet (20 sources)Central Nervous System StimulantStart: 11-28-2024 End: 39-64-8320ckyv 1 tablet by mouth once dailyamphetamine-dextroamphetamine (Adderall) 10 MG tablet Indications: Obstructive sleep apnea Take 1 tablet (10 mg) by mouth Daily 30 tablet 04/05/2025 05/04/2025 Discontinued (Reorder)Start: 10-26-2024 End: 00-44-7746chsm 1 tablet by mouth once dailyamphetamine-dextroamphetamine (Adderall) 10 MG tablet Indications: Obstructive sleep apnea Take 1 tablet (10 mg) by mouth Daily 30 tablet 10/26/2024 11/25/2024 ActiveStart: 09-21-2024 End: 37-55-2461eqqu 1 tablet by mouth once dailyamphetamine-dextroamphetamine (Adderall) 10 MG tablet Indications: Obstructive sleep apnea Take 1 tablet (10 mg) by mouth Daily 30 tablet 09/21/2024 10/24/2024 Discontinued (Reorder)Start: 04-20-2024 End: 79-99-5078xwsm 1 tablet by mouth once dailyamphetamine-dextroamphetamine (Adderall) 10 MG tablet Indications: Obstructive sleep apnea Take 1 tablet (10 mg) by mouth Daily Do not start before May 13, 2024. 30 tablet 05/13/2024 07/18/2024 Discontinued (Reorder)Start: 11-06-2023 End: 06-60-0439bqkb 1 tablet by mouth in the morningamphetamine- dextroamphetamine (Adderall) 10 MG tablet Indications: Obstructive sleep apnea Take 1 tablet (10 mg) by mouth in the morning. 30 tablet 0 12/10/2023 01/09/2024 Active Problems Active Problems Problem ClassificationProblemDateDocumented DateEpisodic/ChronicEssential hypertension (20 sources)Essential (primary) hypertension; Translations: [Essential hypertension]Onset: 09-21-8088QxqqtuxWxzgo nervous system disorders (4 sources)Other chronic pain; Translations: [OTHER CHRONIC PAIN]Onset: 20-33-4622MmdulheMbsrj nervous system disorders (4 sources)Polyneuropathy, unspecified; Translations: [POLYNEUROPATHY UNSPECIFIED]Onset: 73-28-5449YzvkvxxHsfpmcpw codes; unclassified (20 sources)Obstructive sleep apnea syndrome; Translations: [Obstructive sleep apnea (adult) (pediatric)]Onset: 998351-30-8607OrmqoohPsoqntla codes; unclassified (1 source)Sleep apnea, unspecified; Translations: [SLEEP APNEA, UNSPECIFIED] Onset: 13-10-3616Rpywoiqpaih; intervertebral disc disorders; other back problems (7 sources)Other intervertebral disc degeneration, lumbar region; Translations: [Spondylosis without myelopathy or radiculopathy, lumbar region]Onset: 91-07-7073QfrjljpIblhmgshl-related disorders (19 sources)Nicotine dependence, cigarettes, uncomplicated; Translations: [Smoker]Onset: 661841-54-6783CulykrrLcspzcpgvwew (2 sources)Unknown / UNK(Unknown)Onset: 56-13-3271Aolqevjmickv (4 sources)LOW BACK PAIN, UNSPECIFIED; Translations: [LOW BACK PAIN, UNSPECIFIED]Onset: 10-30-2022 Past or Other Problems Problem ClassificationProblemDateDocumented DateEpisodic/ChronicGastrointestinal hemorrhage (3 sources)Hemorrhage of anus and rectum; Translations: [HEMORRHAGE OF ANUS AND RECTUM]Onset: 90-67-6878TljsucivKnympevnieh (2 sources)Other hemorrhoids; Translations: [Residual hemorrhoidal skin tags] Onset: 07-54-8905MrcjsevjUdzas screening for suspected conditions (not mental disorders or infectious disease) (2 sources)Encounter for screening for diabetes mellitus; Translations: [Encounter for screening for lipoid disorders]Onset: 49-19-2464Qlblknan Spondylosis; intervertebral disc disorders; other back problems (20 sources)Intervertebral disc disorders with radiculopathy, lumbar region; Translations: [Backache]Onset: 286063-17-8652VyqhiwvtVhbxdywktugq (1 source)LOW BACK PAIN, UNSPECIFIED; Translations: [LOW BACK PAIN, UNSPECIFIED] Onset: 10-24-2022 Results Test NameValueInterpretationReference RangeFacilityXR LUMBAR SPINE 6V W BENDING on 76[place]64[place] [address] XRay Report Signed Patient: CRISTI FIELDS MR#: [id number] : 1975 Acct:[id number] Age/Sex: 48 / M ADM Date: 12/26/24 Loc: RAD Attending Dr: Alaina Rodriguez M.D. Ordering Physician: Alaina Rodriguez M.D. Date of Service: 12/26/24 Procedure(s): XR lumbar spine 6V w bending Accession Number(s): [id number] cc: PEBBLES GUTIERREZ Narendranath M.D. [place] [address] Patient Name: CRISTI FIELDS MRN: [id number] date: 1975 Sex: M Assigned Patient Location: [facility] Current Patient Location: [facility] Accession/Order Number: [id number] Exam Date: 12/26/2024 16:55 Report Date: 12/26/2024 [...] Rodríguez Jr., D.O.12/26/2024 4:56 PM Dictation Location: [place] [address] Electronically authenticated by: [id number] Y Date: 12/26/2024 16:56 Dictated By: Dennis Rodríguez M.D. Signed By: 12/26/249 DD/ 55 TD/TT: Play Back Operator:ERASTOHRadiolograndy, Radiologist, - 12/27/2024 [place] [address] XRay Report Signed Patient: CRISTI FIELDS MR#: [id number] : 1975 Acct:[id number] Age/Sex: 48 / M ADM Date: 12/26/24 Loc: RAD Attending Dr: Alaina Rodriguez M.D. Ordering Physician: Alaina Rodriguez M.D. Date of Service: 12/26/24 Procedure(s): XR lumbar spine 6V w bending Accession Number(s): [id number] cc: PEBBLES GUTIERREZ Narendranath M.D. [address] [place] [address] Patient Name: CRISTI FIELDS MRN: [facility]:[id number] date: 1975 Sex: M Assigned Patient Location: [facility] Current Patient Location: [facility] Accession/Order Number: [id number] Exam Date: 12/26/2024 16:55 Report Date: 12/26/2024 [...] Rodríguez Jr., D.O.12/26/2024 4:56 PM Dictation Location: [place] [address] Electronically authenticated by: [id number] Y Date: 12/26/2024 16:56 Dictated By: Dennis Rodríguez M.D. Signed By: 12/26/249 DD/ 55 TD/TT: Play Back Operator: DANDRE HealthcareRadiology Study observation (narrative)NOMS HealthcareXR LUMBAR SPINE 6V W BENDINGOrdered By: Radiologist Radiology on 50-07-4664[facility] Work Phone: Drugs of abuse panel Screen (U)on 07-27-2024 Amphetamines Ql (U)PositiveNOMS HealthcareBarbiturates Ql (U)NegativeNOMS HealthcareBenzodiazepines Ql (U)NegativeNOMS HealthcareBenzoylecgonine Ql (U) NegativeNOMS HealthcareCarboxy tetrahydrocannabinol (Mec) [Mass/Mass]Negative NOMS HealthcareInterpretation and review of laboratory resultsAbnormalNOMS HealthcareMethadone (U) [Mass/Vol]NegativeNOMS Healthcare Methylenedioxymethamphetamine Screen Ql (U)NegativeNOMS HealthcareMorphine (U) [Mass/Vol]NegativeNOMS HealthcareOpiates Ql (U)NegativeNOMS HealthcareoxyCODONE Ql (U)PositiveNOMS HealthcarePhencyclidine Ql (U)NegativeNOWI Healthcare Reference Lab Test IDNegativeNOMS HealthcareTricyclic antidepressants [Mass/Vol] NegativeNOMS HealthcareNOMS HealthcareCBC AUTO DIFFon 69-06-0747ZZEZ #0.0 103/ul Normal0.0-0.1The [facility] HamiltonComment on above:Performed By: #### CBC #### [facility] [address] [place] [address] [address] Angel Edwardsphils/100 WBC (Bld)0.7 %Normal0.2-2.0The [facility] Comment on above:Performed By: #### CBC #### [facility] [address] [place] [address] [address] Angel Wilkins #0.2 103/ulNormal0.0-0.7The [facility] HamiltonComment on above: Performed By: #### CBC #### [facility] [address] [place] [address] Dr. Angel Arroyoosinophils/100 WBC (Bld)2.6 %Normal0.9-7.0The [facility] Comment on above:Performed By: #### CBC #### [facility] [address] [place] [address] Dr. Angel Arroyorythrocyte distribution width (RBC) [Ratio]12.4 %Yoczoy58.0-15.0 The [facility] HamiltonComment on above:Performed By: #### CBC #### [facility] [address] [place] [address] Dr. Angel HardingHematocrit (Bld) [Volume fraction]42.2 %Jazjyc82.0-54.0The [facility] HamiltonComment on above:Performed By: #### CBC #### [facility] [address] [place] [address] Dr. Angel HardingHemoglobin (Bld) [Mass/Vol]14.1 g/cBVehqmc58.0-18.0The [facility] HamiltonComment on above:Performed By: #### CBC #### [facility] [address] [place] [address] Dr. Angel Salomon #0.02 10e3/ulNormal0.00-0.03The [facility] HamiltonComment on above:Performed By: #### CBC #### [facility] [address] [place] [address] Dr. Angel Salomon %0.3 %Normal0.0-0.5The [facility] HamiltonComment on above: Performed By: #### CBC #### [facility] [address] [place] [address] Dr. Angel CastilloMPH #2.4 103/ulNormal1.2-3.8The [facility] HamiltonComment on above:Performed By: #### CBC #### [facility] [address] [place] [address] Dr. Angel Castillomphocytes/100 WBC (Bld)39.4 %Noprsr02.5-60.0The [facility] HamiltonComment on above:Performed By: #### CBC #### [facility] [address] [place] [address] Dr. Angel Ayoub DIFF REQNONormalThe [facility] HamiltonComment on above: Performed By: #### CBC #### [facility] [address] [place] [address] Dr. Angel Gorman (RBC) [Entitic mass]31.4 ugOeryep17.9-34.0The [facility] HamiltonComment on above:Performed By: #### CBC #### [facility] [address] [place] [address] Dr. Angel Gorman (RBC) [Mass/Vol]33.4 g/jSOihuud04.9-35.2The [facility] HamiltonComment on above:Performed By: #### CBC #### [facility] [address] [place] [address] Dr. Angel Gorman (RBC) [Entitic vol]94.0 aZCuambh82.0-94.0The [facility] HamiltonComment on above:Performed By: #### CBC #### [facility] [address] [place] [address] Dr. Angel Cabrera #0.5 103/ulNormal0.3-0.8The [facility] HamiltonComment on above:Performed By: #### CBC #### [facility] [address] [place] [address] Dr. Angel Pastorocytes/100 WBC (Bld)7.5 %Normal1.7-12.0The [facility] Comment on above:Performed By: #### CBC #### [facility] [address] [place] [address] Dr. Angel Tilley #3.0 103/ulNormal1.4-6.5The [facility] HamiltonComment on above:Performed By: #### CBC #### [facility] [address] [place] [address] [address] Angel HardingNeutrophils/100 WBC (Bld)49.5 %Inxwty38.0-75.0The [facility] on above:Performed By: #### CBC #### [facility] [address] [place] [address] Dr. Angel HardingPlatelet mean volume (Bld) [Entitic vol]9.7 fLNormal9.5-13.5The [facility] HamiltonComva medical center on above:Performed By: #### CBC #### [facility] [address] [place] [address] Dr. Angel HardingPLT275 103/jiQjkzqe049-573Cnf [facility] on above: Performed By: #### CBC #### [facility] [address] [place] [address] Dr. Angel HardingRBC4.49 106/ulCritically low4.70-6.10The [facility] on above:Performed By: #### CBC #### [facility] [address] [place] [address] Dr. Angel HardingWBC6.1 103/ulNormal4.0-11.0The [facility] on above: Performed By: #### CBC #### [facility] [address] [place] [address] Dr. Angel HardingGLYCOHEMOGLOBIN A1Con 26-92-6885NEC RECOMMENDATIONSEE BELOWNormal The [facility] on above:Result Comment: ADA RECOMMENDED LIMIT 4.0 - 6.0 ADA THERAPEUTIC TARGET < 7.0 ACTION SUGGESTED > 7.0Performed By: #### A1C #### [facility] [address] [place] [address] Dr. Angel HardingGlucose [Mass/Vol]117 mg/dLNormalThPremier Health [facility] on above:Performed By: #### A1C #### [facility] [address] [place] [address] Dr. Angel HardingHbA1c (Bld) [Mass fraction]5.7 %Normal4.5-6.2The [facility] on above:Performed By: #### A1C #### [facility] [address] [place] [address] [address] Angel AyersID PROFILEon 74-13-0790RFJI-HDL RATIO NORMSTriHealth [facility]ull[facility] on above:Result Comment: 3.3 - 4.4 LOW RISK 4.4 - 7.1 AVERAGE RISK 7.1 - 11.0 MODERATE RISK >11.0 HIGH RISKPerformed By: #### CMP, LIPID #### [facility] [address] [place] [address] [address] Angel HardingCholesterol [Mass/Vol]217 mg/dLCritically high<=200The [facility] on above:Performed By: #### CMP, LIPID #### [facility] [address] [place] [address] [address] Angel HardingCholesterol in HDL [Mass/Vol]47 mg/iUXgsypt88-94Emg [facility] on above:Performed By: #### CMP, LIPID #### [facility] [address] [place] [address] [address] Angel HardingCholesterol in LDL [Mass/Vol]125.2 mg/dLUniversity Hospitals St. John [facility] on above:Performed By: #### CMP, LIPID #### [facility] [address] [place] [address] [address] Angel HardingCholesterhenok.total/Cholesterol in HDL [Mass ratio]4.6 {ratio} NormalThe [facility] on above:Performed By: #### CMP, LIPID #### [facility] [address] [place] [address] [address] Angel HardingHDL NORMAL> or = 60 mg/dl - LOW CARDIOVASCULAR RISK <40 mg/dl - HIGH CARDIOVASCULAR RISKUniversity Hospitals St. [facility] Center on above:Performed By: #### CMP, LIPID #### [facility] [address] [place] [address] [address] Angel HardingLDL CALC NORMALSEE [facility] CenterComva medical center on above:Result Comment: <100 mg/dl OPTIMAL 100 - 129 mg/dl NEAR OR ABOVE OPTIMAL 130 - 159 mg/dl BORDERLINE HIGH 160 - 189 mg/dl HIGH >190 mg/dl VERY HIGH Performed By: #### CMP, LIPID #### [facility] [address] [place] [address] Dr. Angel HardingTriglyceride [Mass/Vol]224 mg/dLCritically high<=150The [facility] HamiltonComment on above:Performed By: #### CMP, LIPID #### [facility] [address] [place] [address] Dr. Angel HardingVLDL CALC44.8 mg/dLNormalThe [facility] HamiltonComment on above: Performed By: #### CMP, LIPID #### [facility] [address] [place] [address] Dr. Angel HardingPROIlan 14(COMP METB)on 45-83-4292Ynzqeou [Mass/Vol]3.8 g/dLNormal 3.4-5.0The [facility] HamiltonComment on above:Performed By: #### CMP, LIPID #### [facility] [address] [place] [address] Dr. Angel HardingAlbumin/Globulin [Mass ratio]1.0 {ratio}NormalThe [facility] HamiltonComment on above:Performed By: #### CMP, LIPID #### [facility] [address] [place] [address] Dr. Angel HuntleyP [Catalytic activity/Vol]91 U/AVsqlur06-154Zbs [facility] HamiltonComment on above:Performed By: #### CMP, LIPID #### [facility] [address] [place] [address] Dr. Angel Granger [Catalytic activity/Vol]66 U/LCritically cpok42-48Ils [facility] HamiltonComment on above:Performed By: #### CMP, LIPID #### [facility] [address] [place] [address] Dr. Angel Khoury gap [Moles/Vol]13.0 mmol/LNormalThe [facility] Comment on above:Performed By: #### CMP, LIPID #### [facility] [address] [place] [address] [address] Angel HardingAST [Catalytic activity/Vol]29 U/VOrxdkr64-52Kpk [facility] HamiltonComment on above:Performed By: #### CMP, LIPID #### [facility] [address] [place] [address] [address] Angel HardingBilirubin [Mass/Vol]0.3 mg/dLNormal0.2-1.0The [facility] Comment on above:Performed By: #### CMP, LIPID #### [facility] [address] [place] [address] Dr. Angel HardingCalcium [Mass/Vol]8.6 mg/dLNormal8.5-10.1The [facility] Comment on above:Performed By: #### CMP, LIPID #### [facility] [address] [place] [address] Dr. Angel HardingChloride [Moles/Vol]106 mmol/AGwvltr32-673Aly [facility] Comment on above:Performed By: #### CMP, LIPID #### [facility] [address] [place] [address] Dr. Angel HardingCO2 [Moles/Vol]25.7 mmol/FFmordy43.0-32.0The [facility] Comment on above:Performed By: #### CMP, LIPID #### [facility] [address] [place] [address] Dr. Angel HardingCreatinine [Mass/Vol]0.83 mg/dLNormal0.70-1.30The [facility] HamiltonComment on above:Performed By: #### CMP, LIPID #### [facility] [address] [place] [address] Dr. Angel ArroyoGFR-AF CAYMAN ISLANDER>60Normal>=60The [facility] HamiltonComment on above:Performed By: #### CMP, LIPID #### [facility] [address] [place] [address] Dr. Angel ArroyoGFR-NON AF [place] ISLANDER>60Normal>=60The [facility] HamiltonComment on above:Performed By: #### CMP, LIPID #### [facility] [address] [place] [address] [address] Angel HardingGlobulin (S) [Mass/Vol]3.7 g/dLNormUK HealthcareComment on above:Performed By: #### CMP, LIPID #### [facility] [address] [place] [address] [address] Angel HardingGlucose [Mass/Vol]114 mg/dLCritically kfty27-296Pua [facility] HamiltonComment on above:Performed By: #### CMP, LIPID #### [facility] [address] [place] [address] [address] Angel HardingPotassium [Moles/Vol]4.7 mmol/LNormal3.5-5.1The [facility] Comment on above:Performed By: #### CMP, LIPID #### [facility] [address] [place] [address] [address] Angel HardingProtein [Mass/Vol]7.5 g/dLNormal6.1-8.2The [facility] Comment on above:Performed By: #### CMP, LIPID #### [facility] [address] [place] [address] [address] Angel HardingSodium [Moles/Vol]140 mmol/EOgxsch086-877Wzv [facility] Comment on above:Performed By: #### CMP, LIPID #### [facility] [address] [place] [address] [address] Angel HardingUrea nitrogen [Mass/Vol]12.0 mg/dLNormal7.0-18.0The [facility] HamiltonComment on above:Performed By: #### CMP, LIPID #### [facility] [address] [place] [address] [address] Angel HardingUrea nitrogen/Creatinine [Mass ratio]14.5 mg/mgNoMetroHealth Cleveland Heights Medical CenterComment on above:Performed By: #### CMP, LIPID #### [facility] [address] [place] [address] [address] Angel HardingOperative Reporton 50-46-5956Ylyueuxmk ReportMR#: [id number] [facility] Pt. Name: Cristi Honeycutt Room #: 0C Discharge Date: Birthdate: 1975 OPERATIVE REPORTDATE OF SURGERY: 07/01/2018SURGEON: DEJUAN ArtisREOPERATIVE DIAGNOSIS: Rectal bleeding.POSTOPERATIVE DIAGNOSIS: Right posterior mixed internaland externalhemorrhoids.PROCEDURES:1. Excision of mixed right posterior internal and external hemorrhoids.2. Exparel was used to do a perianal block.ANESTHESIA: MAC.COMPLICATIONS: None.INDICATION FORPROCEDURE: This is a 42-year-old male presented to [facility] with rectal pain and bleeding. Decisionwas made to bring him tothe operating room for exam under anesthesia.DESCRIPTION OF PROCEDURE: Preoperatively, consent was obtained. Thepatient was brought to the operating room, placed in prone ernestine-knifeposition. MAC anesthesia was induced. On induction of anesthesia and examunder anesthesia, thepatient noted to have a right posterior externalhemorrhoid [...] was taken topostanesthesia care unit in stable condition.Electronically Signed by:Eden Solorio MD 07/01/2018 12:20 P NARCISO Artisate Dict: 2017/09:02 Shannon/Shyla Artis Trans: 07/01/2018 11:00 Shannon/Anca_JN:[id number] Health SystemPO GLUCOSE LABon 77-27-4575Fqyvfvw mass lrrg398 mg/tWIkfv46-664KsjTrinity Health System Twin City Medical CenterComment on above:Performed By: #### [address] ####[facility] Vital Signs Date TimeVital SignValuePerforming LjhgryuaoDeiamghl16-12-5613 08:46-0400Body rjtyva694.1 cmCristi Dave MD Work Phone: [facility] HospitalVuuekwpava34-08-0399 08:46-0400Body mass index (BMI) [Ratio]28.43 kg/m2Cristi Dave MD Work Phone: [facility] HospitalBnmzvqshlg29-19-3352 08:46-0400Body temperature 97.11 [degF]Cristi Dave MD Work Phone: [phone] [place], [place] [address]Hnrxdggjjc63-64-8396 08:46-0400Body .58 kgCristi Dave MD Work Phone: [facility]' HospitalGzaercazed23-48-3897 08:46-0400Diastolic blood ekktcoeq84 mm[Hg]Cristi Dave MD Work Phone: [facility] HospitalXzrfrmzofe00-28-2938 08:46-0400Heart rate78 /min Cristi Dave MD Work Phone: [phone] HospitalNxbwqigsxt17-21-4657 08:46-0400Respiratory rate18 /minCristi Dave MD Work Phone: [facility] HospitalXwkxgqyysk54-07-6030 08:46-4939NuP0% (BldA) [Mass fraction]98 %Cristi Dave MD Work Phone: [facility] HospitalJihcjuqvte45-97-3465 08:46-0400Systolic blood rjkguzwe483 mm[Hg]Cristi Dave MD Work Phone: [facility] HospitalJebpoorqno32-52-9948 08:20-0400Body usjavj162.1 cmRosie Gutierrez AUTOMATIC NAILING MACHINE OPERATOR Work Phone: [facility] HospitalMwsdnbekox49-96-6347 08:20-0400Body mass index (BMI) [Ratio]28.27 kg/p0Dbomtazm Gutierrez AUTOMATIC NAILING MACHINE OPERATOR Work Phone: noScotland [facility] HospitalKkohurfdje68-62-2097 08:20-0400Body temperature 96.3 [degF]Rosie Lucianotrick AUTOMATIC NAILING MACHINE OPERATOR Work Phone: noScot[facility] HospitalCapfbcnrii55-60-5855 08:20-0400Body egrmot545.95 kgRosie Lucianotrick AUTOMATIC NAILING MACHINE OPERATOR Work Phone: noSc[facility] HospitalOlfhcjknst81-33-0756 08:20-0400Diastolic blood mm[Hg]Rosie Hendricksonpatrick AUTOMATIC NAILING MACHINE OPERATOR Work Phone: noScot[facility] HospitalFveluowgho13-00-6567 08:20-0400Heart rate87 /min Rosie Hendricksonpatrick AUTOMATIC NAILING MACHINE OPERATOR Work Phone: noScot[facility] HospitalFwxzbiheob69-31-7254 08:20-0400Respiratory rate16 /minRosie Hendricksonpatrick AUTOMATIC NAILING MACHINE OPERATOR Work Phone: noSc[facility] HospitalEomscwqsvc49-73-9868 08:20-8821IwU8% (BldA) [Mass fraction]98 %Rosie Lucianotrick AUTOMATIC NAILING MACHINE OPERATOR Work Phone: noSc[facility] HospitalGxuekodlcv76-84-6233 08:20-0400Systolic blood gowvmujg121 mm[Hg]Rosie Hendricksonpatrick AUTOMATIC NAILING MACHINE OPERATOR Work Phone: [facility] Encounters Encounter DateEncounter TypeCare ProviderFacilityStart: 05-04-2025 End: 63-23-3066ZwmqbqYpta Naderer MD Work Phone: [facility]WM FMComment on above:Obstructive sleep apnea Start: 04-05-2025 End: 22-64-2174JyalecCurs Naderer MD Work Phone: [facility] FMComment on above:Obstructive sleep apnea Start: 03-06-2025 End: 27-17-5196DlytypQqoo Naderer MD Work Phone: [facility] CWM FMComment on above:Obstructive sleep apnea Start: 03-01-2025 End: 89-35-0127Haddnefaith Dave MD Work Phone: [facility] FMStart: 03-01-2025 End: 47-19-2784Yovbkffaith Dave MD Work Phone: [facility] FMStart: 03-01-2025 End: 33-80-9235Gdvvmm outpatient visit 15 minutesCristi Dave MD Work Phone: [facility] C[facility] FMComment on above:Primary hypertension (CMS/HCC) (Primary Dx); SILVIA (obstructive sleep apnea); Back pain of thoracolumbar regionStart: 03-01-2025 End: 28-73-1900qejmmmipdqLUMP NADERERNot AvailableStart: 01-31-2025 End: 39-85-3748PofqliAbji Naderer MD Work Phone: [facility] CWM FMComment on above:Obstructive sleep apnea Start: 01-02-2025 End: 22-13-8139LowczhXieg Naderer MD Work Phone: [facility] CWM FMComment on above:Obstructive sleep apnea Start: 12-26-2024 End: 21-01-6602Bauiylffd Result EncounterGeneric External Data ProviderNOMS External Department UnsolicitedStart: 12-26-2024 End: 89-63-7013Jyecsjaee Result EncounterGeneric External Data ProviderNOMS External Department UnsolicitedStart: 10-24-2024 End: 12-30-3327TxhjycLbxfIggy TURK CWM FMComment on above:Obstructive sleep apneaStart: 10-11-2024 End: 70-41-7816GbmpdeLcwrgtagEren Gutierrez NP Work Phone: [facility] CWM FMComment on above:Primary hypertension (CMS/HCC)Start: 09-19-2024 End: 44-75-8268ZmbduaXhpoMinna TURK CWM FMComment on above:Obstructive sleep apneaStart: 08-17-2024 End: 50-36-5805RxwqexKvrpMinna TURK CWM FMComment on above:Obstructive sleep apneaStart: 07-27-2024 End: 51-06-8572Bzxrzz flowsheetRosie Gutierrez AUTOMATIC NAILING MACHINE OPERATOR Work Phone: [facility] FMStart: 07-27-2024 End: 89-12-3760Hwbthg flowsheetRosie Gutierrez AUTOMATIC NAILING MACHINE OPERATOR Work Phone: [facility] FMStart: 07-27-2024 End: 83-52-6767Lhfxcl outpatient visit 15 minutesBrlev Gutierrez AUTOMATIC NAILING MACHINE OPERATOR Work Phone: [facility] CWM FMComment on above:Primary hypertension (CMS/HCC) (Primary Dx); SILVIA (obstructive sleep apnea); Back pain of thoracolumbar region; Obstructive sleep apneaStart: 07-27-2024 End: 01-33-8074axyrgtvnfcCOVYZIVA FITZPATRICKNot AvailableStart: 07-18-2024 End: 02-86-6315YptbmoIpeaxd Sánchez MANDANNA CWM FMComment on above:Obstructive sleep apneaStart: 06-18-2024 End: 78-41-3408YlpmhgKmcdfepx Fitzpatrick AUTOMATIC NAILING MACHINE OPERATOR Work Phone: NOJV CWM FMStart: 99-77-0784Emhauoi encounter status Rosie Gutierrez AUTOMATIC NAILING MACHINE OPERATOR Work Phone: NOBB HealthcareStart: 04-20-2024 End: 85-50-4342eqxbghwerzGYSYJG FAWWADNot AvailableStart: 12-93-9338Vcpxhj Only Shaikh Symone CAMACHO Work Phone: NOTQ CWM IMComment on above:Primary hypertension (CMS/HCC) (Primary Dx); Obstructive sleep apneaStart: 01-22-2023 End: 54-98-0391gookachdkdVSKZUUZXBKYG LAKSHMIPATHRandy .Facility:E4Zmann: 10-24-2022 End: 47-82-5298qbbzqoxopgFH ROSAS STEINER .Facility:F8Fglrz: 07-16-2022 End: 25-56-7801zoyhhismxtTC VIMAL S KUMAR .Facility:Q3Stywm: 04-03-2022 End: 79-51-9581svequlycmzNTXRBJ H FAWWADFacility:X4Lmvye: 02-20-2022 End: 62-78-2281zmhozivxcaBJLHYJ H FAWWADFacility:F4Qbnmu: 07-01-2018 End: 21-00-9454Isxvkjj encounter procedureSJAMAAL Burris OSMINFacility:[facility]ENTERtart: 06-08-2018 End: 57-63-1612Pfthvft encounter procedureDEFAULT PHYSICIANFacility:[facility] Procedures DateProcedureProcedure DetailPerforming ClinicianStart: 52-81-4833LG LUMBAR SPINE 6V W BENDINGGeneric External Data ProviderStart: 67-59-0945Yykn test prsmv read direct optical obs pr Jey Gutierrez AUTOMATIC NAILING MACHINE OPERATOR Work Phone: Start: 50-63-8161NTYSQJ ANORECTAL SURGERYTHOMAS A ROONEYStart: 39-01-4593KOVCJH BY LIGAT INT HEM GRPSTTONI [place] OSMINStart: 61-97-0631AkvyzkahmbtPmzdfmey Fitzpatrick AUTOMATIC NAILING MACHINE OPERATOR Work Phone: Plan of Treatment DateCare ActivityDetailAuthorStart: 33-75-0283Hvhzuaket for malignant neoplasm of colonNOMS HealthcareStart: 09-04-2025 End: 50-46-5229Ahocmfv encounter vxatgacop29/10/2025 8:30 AM EST Office Visit [facility] [address] [place] [address] Cristi Dave MD [address] [place] [address] [facility] CWM FMStart: 19-06-8475Ofcyuekow vaccinationNOMS HealthcareStart: 03-01-2025 End: 05-98-6601Ijxgash encounter procedureNOMS CWM FMComment on above:Arrived Start: 01-25-2025 End: 19-16-9442Dajymyq encounter yrbgfalyr75/02/2025 8:30 AM EDT Office Visit [facility] [address] [place] [address] Rosie Gutierrez, SHIV [address] [place] [address] [facility] CWM FMStart: 07-27-2024 End: 19-51-0882Hqgeidp encounter procedureNOMS CWM FMComment on above:Primary hypertension (CMS/HCC) (Primary Dx); SILVIA (obstructive sleep apnea); Back pain of thoracolumbar regionStart: 16-80-4663Zifitrmnn vaccinationInfluenza Vaccine (#1)[facility] HealthcareStart: 20-52-9564Zfhqytgeh vaccinationInfluenza Vaccine (#1)[facility] HealthcareStart: 83-73-7241Mgsgawhgp for malignant neoplasm of colonNOWI Healthcare Immunizations Immunization DateImmunizationNotesCare EvrwglmvZeituiww30-53-5103itclswn toxoid, reduced diphtheria toxoid, and acellular pertussis vaccine, adsorbedBrittany Brenda CHANEY Work Phone: [facility] Payers DatePayer CategoryPayerPolicy [id number] Health Insurance [id number] 2..[id number] 2..1.252254.3.57[id number] 2..1.073460.3.57[id number] 2..1.831686.3.57[id number] 2..1.815563.3.57[id number] 2.16.840.1.465548.3.57[id number] 2.16.840.1.075049.3.57[id number] 2.16.840.1.501348.3.57[id number] 2..840.1.483140.3.57[id number] 2.16.840.1.807379.3.579.[id number] Social History DateTypeDetailFacilityTobacco smoking status NHISTobacco smoking consumption unknownNOWI HealthcareStart: 22-30-9402Jlr Assigned At BirthNot on [facility] HealthcareStart: 04-20-2024 End: 34-64-3790Wgfqkz identityNot on [facility] HealthcareStart: 58-31-3790Phuqflt smoking status NHISSmokes tobacco dailyNOMS HealthcareHistory of tobacco use Cigarette SmokerNOMS HealthcareHistory of tobacco usePassive smokerNOMS HealthcareStart: 12-65-3691Gwhgnbe use and exposureUser of smokeless tobaccoNOMS HealthcareHistory of tobacco useChews TobaccoNOWI HealthcareStart: 04-20-2024 End: 08-35-4802Hzdpfwimp beverage intakeCurrent drinker of alcohol (finding)[facility] HealthcareStart: 04-20-2024 End: 89-01-0864Kfeiuak of Social functionNOWI Healthcare Clinical Notes 04-03-2022 to 03-01-2025 Note Date & GermVabeJzymepgt06-15-9418 History of Present illness Narrative* Cristi Dave MD - 03/01/2025 9:29 AM EDTAssociated Problem(s): Primary hypertension (CMS/HCC) BP slightly elevated and monitor PRN. * Cristi Dave MD - 03/01/2025 9:29 AM EDTAssociated Problem(s): SILVIA (obstructive sleep apnea) Fatigue controlled with adderall and continue. * Cristi Dave MD - 03/01/2025 9:29 AM EDTAssociated Problem(s): Back pain of thoracolumbar region Pain stable and follow with pain management. * Cristi Dave MD - 03/01/2025 8:30 AM EDT Images from the original note were not included. Subjective Patient ID: Cristi Honeycutt is a 49 y.o. male who presents for Follow-up (6m). Follow up HTN, SILVIA, and back pain. Not checking BP away from office and slightly elevated today. Taking medication daily and tolerating without side effects. SILVIA controlled with adderall. Not as muchfatigue during day and functioning well. Not falling [...] with adderall and continue. documented in this [facility]12-30-2024 Telephone encounter Note* Telephone Encounter - Amy Huerta MA - 10/24/2024 12:51 PM EST Pt ran out over the holidays. MIMI:07/27/2024 NOV:01/25/2025 [facility] HospitalAijzfedpqg99-67-8055 Miscellaneous Notes* Telephone Encounter - Amy Huerta MA - 10/24/2024 12:51 PM EST Pt ran out over the holidays. MIMI:07/27/2024 NOV:01/25/2025 documented in this [facility]11-25-2024 Telephone encounter Note* Telephone Encounter - Amy Huerta MA - 09/19/2024 8:08 AM EST MIMI:07/27/2024 NOV:01/25/2025 [facility] HospitalKnkszmgzsk67-71-2635 Miscellaneous Notes* Telephone Encounter - Amy Huerta MA - 09/19/2024 8:08 AM EST MIMI:07/27/2024 NOV:01/25/2025 documented in this [facility]10-23-2024 Telephone encounter Note* Telephone Encounter - Amy Huerta MA - 08/17/2024 3:36 PM EDT P requesting a refill on his Adderall. MIMI:07/27/2024 NOV:01/25/2025 [facility] HospitalXtmzgmzhkw87-45-4011 Miscellaneous Notes* Telephone Encounter - Amy Huerta MA - 08/17/2024 3:36 PM EDT P requesting a refill on his Adderall. MIMI:07/27/2024 NOV:01/25/2025 documented in this encounterHarry S. [facility]' HospitalWtmzarzdcr23-43-4356 History of Present illness Narrative* Rosie Gutierrez NP - 07/27/2024 8:50 AM EDTAssociated Problem(s): Back pain of thoracolumbar region Follows PM; Taking Percocet 5/325mg TID. Feels symptoms are well controlled with regimen. * Rosie Gutierrez NP - 07/27/2024 8:49 AM EDTAssociated Problem(s): Primary hypertension (CMS/HCC) Currently taking Losartan 100mg Does not check BP at home; BP above goal in office. Given BP log, advised pt to record BP and bring log back with them to next visit. Denies orthostatic changes, dizziness, cough, shortness of breath, swelling in extremities. Continue current regimen. * Rosie Gutierrez NP - 07/27/2024 8:48 AM EDTAssociated Problem(s): SILVIA (obstructive sleep apnea) Does not wear CPAP, never has. Is currently taking 10mg Adderall daily; Feels medication helps with daytime drowsiness. OARRS reviewed. CSA signed. Continue current regimen. * Rosie Gutierrez NP - 07/27/2024 8:30 AM EDT Images from the original note were not [...] Neurological: Negative for dizziness, tremors, syncope, weakness, light- headedness and headaches. Psychiatric/Behavioral: Negative for decreased concentration and suicidal ideas. The patient is notnervous/anxious. Hematological: Does not bruise/bleed easily. Endocrine: Negative [...] Diagnoses Obstructive sleep apnea documented in this encounterHarry S. [facility]' HospitalFuwsgrcsmy97-54-8786 NoteCONSULTATION CONSULTATION DATE: 01/22/2023 TO: Dr. Ashby CHIEF [...] this patient secondary to the strained patient/physician relationship.[facility] HamiltonWhxixhjv23-76-2285 NoteCONSULTATION CONSULTATION DATE: 10/24/2022 HISTORY OF PRESENT ILLNESS: This is a 46-year-old male. He is a nursing home patient of our clinic, being seen for a three month follow up for chronic lower back pain. Historically, the patient has declined procedures that have been offered and prefers to be medically maintained. His medications include Mobic 15 mg daily, Percocet 5/325 t.i.d., tizanidine 4 mg p.r.n. and Adderall. 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 His chronic pain does not interfere with ADLs, as long as he is compliant with his medications. 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 This morning, [...] him in three months' time, unless otherwise indicated.[facility] HamiltonIghbpgfm66-28-9965 NoteCONSULTATION CONSULTATION DATE: 07/16/2022 HISTORY OF PRESENT ILLNESS: [...] otherwise indicated. Patient is in agreement to this.[facility] HamiltonVgwiduln28-53-6460 NoteCONSULTATION CONSULTATION DATE: 04/03/2022 HISTORY OF PRESENT ILLNESS: [...] his mid upper back. 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 [facility] Signed and Approved by: STAR MOLINA . 04/10/2022 16:02:00[facility] Diagnosis Primary hypertension (CMS/HCC)- Primary Unspecified essential hypertension Obstructive sleep apnea Obstructive sleep apnea (adult) (pediatric) documented in this encounter [facility] HealthcareEvaluation note* Diagnosis Primary hypertension (CMS/HCC)- Primary [...] and content) DATE CREATED AUTHOR 10/21/2018 [facility] DATE CREATED AUTHOR AUTHOR'S ORGANIZ ATION 01/31/2023 [facility] DATE CREATED AUTHOR AUTHOR'S ORGANIZ ATION 03/03/2025 [facility] EPIC Care Teams (unrecognized sec tion and content) Team MemberRelationshipSpecialtyStart DateEnd Date Shaikh Ashby MD PCP - GeneralInternal Medicine05/13/23Team MemberRelationshipSpecialtyStart Date End Date Cristi Dave MD [address] [place] [address] PCP - Generalmi Medicine06/07/24 Rosie Gutierrez NP [address] [place] [address] Nurse PractitionerEm[facility]06/07/24Team MemberRelationshipSpecialtyStart DateEnd Date Cristi Dave MD [address] [place] [address] PCP - GeneralEm[facility]06/07/24 Rosie Gutierrez NP [address] [place] [address] [facility]06/07/24Team MemberRelationshipSpecialtyStart DateEnd Date Cristi Dave MD [address] [place] [address] PCP - GeneralEm[facility]06/07/24 Rosie Gutierrez NP [address] [place] [address] Nurse PractitionerEm[facility]06/07/24Team MemberRelationshipSpecialtyStart DateEnd Date Cristi Dave MD [address] [place] [address] PCP - [facility]06/07/24 Rosie Gutierrez, SHIV [address] [place] [address] Nurse PractitionerEm[facility]06/07/24Team MemberRelationshipSpecialtyStart DateEnd Date Cristi Dave MD [address] [place] [address] PCP - [facility]06/07/24 Rosie Gutierrez, SHIV [address] [place] [address] Nurse PractitionerEm[facility]06/07/24Team MemberRelationshipSpecialtyStart DateEnd Date Cristi Dave MD [address] [place] [address] PCP - [facility]06/07/24 Rosie Gutierrez, SHIV [address] [place] [address] Nurse [facility]06/07/24Team MemberRelationshipSpecialtyStart DateEnd Date Cristi Dave MD [address] [place] [address] PCP - [facility] Medicine06/07/24 Rosie Gutierrez NP [address] [place] [address] Nurse PractitionerEm[facility]06/07/24Team MemberRelationshipSpecialtyStart DateEnd Date Cristi Dave MD [address] [place] [address] PCP - GeneralEm[facility]06/07/24 Rosie Gutierrez NP [address] [place] [address] Nurse PractitionerEm[facility]06/07/24Team MemberRelationshipSpecialtyStart DateEnd Date Cristi Dave MD [address] [place] [address] PCP - GeneralEm[facility]06/07/24 Rosie Gutierrez NP [address] [place] [address] Nurse PractitionerEm[facility]06/07/24Team MemberRelationshipSpecialtyStart DateEnd Date Cristi Dave MD [address] [place] [address] PCP - GeneralEm[facility]06/07/24 Rosie Gutierrez NP [address] [place] [address] Nurse PractitionerEmory University [facility]06/07/24 Reason for Visit (unrecogniz ed section and content) ReasonCommentsMed RefillReasonOnset DateCommentsMed Lnyidu384ReasonOnset DateCommentsMed Xtauvp384ReasonOnset DateCommentsMed Mwqvvo4007/18/2024 ReasonOnset DateCommentsMed Itfcxs034ReasonOnset DateCommentsMed Refill 01/02/2025ReasonOnset DateCommentsMed Vkstuo5201/31/2025ReasonCommentsFollow-up6m ReasonOnset DateCommentsMed Ndokhe4503/06/2025ReasonOnset DateCommentsMed Refill 04/05/2025ReasonOnset DateCommentsMed Gaainz6005/04/2025 FOR RECORDS PERTAINING TO PATIENTS WHO ARE [...] BE BASED ON THE PRIMARY CLINICAL RECORDS. [facility]. provides no warranty or guarantee of the accuracy or completeness of information in this document.
--- NOTE | 2025-08-24 07:57 | PM.CN ---
Consult Note: HPI Data of Consult Patient: known to practice within the last 3 years Consult date: 08/24/25 Requesting Physician: Emma Albert NP Primary Care Provider: Cristi Crisostomo MD Consult Narrative Reason for consult: chronic back and bilateral knee pain Narrative: Cristi Honeycutt a 49 year old male presents for evaluation and management of chronic back pain and bilateral knee pain. Today rating dull pain 3/10, reports it gets up to a 10/10 at times. Patient reports pain is well controlled since last visit and he continues to be active with work. Pain increased with long periods of sitting and improved with activity. Patient continues to report he cannot afford imaging, PT, injection therapy. Patient finds no improvement with HEP and physical labor at home. Patient continues to report functional improvement and benefit from current medication regimen. pt utilizing percocet 5-325mg bid-tid prn moderate to severe pain, and tylenol prn. pt ran out of meloxicam and did not call for a refill, reports pharmacy only supplied 30 day script previously. denies medication side effects. prior lumbar xray consistent with facet arthropathy and L5-S1 DDD, unfortunately it cost the patient $800 to undergo and he cannot afford imaging and interventions. cc:: CC: Emma Albert NP Review of Systems ROS Status of ROS 10 or more systems reviewed and unremarkable except as noted in history and below Musculoskeletal Reports: back pain, extremity pain and joint pain Meds Home Medications and Allergies Home Medications ?Medication ?Instructions ?Recorded ?Confirmed ?Type dextroamphetamine-amphetamine 10 10 mg PO DAILY 05/14/23 05/14/23 History mg tablet (Adderall) losartan 100 mg tablet 100 mg PO DAILY 05/14/23 05/14/23 History tizanidine 4 mg tablet 8 mg PO BEDTIME PRN muscle spasm 05/14/23 05/14/23 History naloxone 4 mg/actuation nasal 1 spray intranasal Q3M PRN opioid 08/19/23 Rx spray (Narcan) overdose #2 ea meloxicam 15 mg tablet 15 mg PO DAILY #90 tabs 09/01/24 Rx oxycodone-acetaminophen 5 mg-325 1 tab PO TID PRN pain #70 tabs 03/09/25 Rx mg tablet (Percocet) meloxicam 15 mg tablet 15 mg PO DAILY #90 tabs 04/06/25 Rx oxycodone-acetaminophen 5 mg-325 See Rx Instructions .Route 04/06/25 Rx mg tablet (Percocet) .COMPLEX PRN pain #70 tabs oxycodone-acetaminophen 5 mg-325 See Rx Instructions .Route 05/04/25 Rx mg tablet (Percocet) .COMPLEX PRN pain #70 tabs oxycodone-acetaminophen 5 mg-325 1 tab PO TID PRN pain #70 tabs 06/05/25 Rx mg tablet (Percocet) oxycodone-acetaminophen 5 mg-325 See Rx Instructions .Route 07/07/25 Rx mg tablet (Percocet) .COMPLEX PRN pain #70 tabs oxycodone-acetaminophen 5 mg-325 See Rx Instructions .Route 08/07/25 Rx mg tablet (Percocet) .COMPLEX PRN pain #70 tabs Allergies Allergy/AdvReac Type Severity Reaction Status Date / Time No Known Drug Allergies Allergy Verified 05/14/23 09:27 Exam Constitutional Documenting provider has reviewed patient's vital signs: yes Common normals: no apparent distress, oriented x3, healthy appearing, alert and well nourished General appearance: cooperative [facility] Common normals: normocephalic, hearing grossly normal bilaterally and moist oral mucous membranes Head and scalp: normocephalic Eye Common normals: PERRL Pupil: PERRL Neck & C-Spine Common normals: full ROM General: normal visual inspection Chest Common normals: inspection of chest normal Respiratory Common normals: normal respiratory effort, no retractions and no use of accessory muscles Back & Pelvis Thoracic spine/upper back: ROM limited and pain with ROM Lumbar spine/lower back: ROM limited, pain with ROM, lumbar spinal tenderness and straight leg raise negative bilaterally Sacroiliac joints: SI joints normal Other: positive facet loading bilaterally sensation intact BLE strength 5/5 in BLE Extremity Common normals: normal to inspection and full ROM Right lower extremity: knee joint Left lower extremity: knee joint Other: no edema noted. reports increased pain when pressure is on his knees Neuro Common normals: oriented x3 Sensorium/orientation: alert Motor exam: strength 5/5 throughout and no movement abnormalities noted Psych Common normals: mental status grossly normal, thought process normal, cooperative, affect normal, speech normal and activity/motor behavior normal Speech: normal speech Thought process: normal thought process Results Imaging lumbar xray: Attestation: I have reviewed the pertinent imaging results. Radiologist's impression: Vertebral body heights appear maintained. Moderate disc space narrowing L5-S1 with facet joint degenerative changes. No pathological motion on presumed flexion and extension views. Additional Findings Additional findings: If on a controlled substance or opioids, I have checked an [place] report on this patient and there are no aberrancies noted in the prescribing history.??If on a controlled substance or opioid a drug screen was completed and reviewed within the last year, and if there has not been a drug screen completed we ordered one today to monitor higher risk, state monitored pain medication use. As part of providing excellent, safe, comprehensive care, the following was completed at our patient's visit: 1. A medication reconciliation and review to ensure accurate knowledge of current/active medications, including asking our patients to inform us about any [id number] medications or herbal remedies/nutritional supplements/alternative remedies. 2. A review to specifically ensure our patients have had annual screening for screening for depression, screening for tobacco use, and screening for unhealthy alcohol use. For concerning screenings had a discussion with the patient, provided patient education, and recommended follow-up with primary care provider when appropriate. If patient noted with a risk of falling, they received education on strength, gait, and balance training to prevent future risk of falling. Portions of this note may have been carried over from the previous visit and updated as appropriate. Please note this office utilizes paper charting in addition to the electronic medical record. A list of current medications, vitals, and PMH is available there as the clinical staff outside of myself do not have access to [facility] charting during the clinic day operations. As part of providing quality comprehensive care the current medications, vitals, and PMH were reviewed in the paper chart. Assessment and Plan Assessment and Plan (1) Lumbar spondylosis: (2) DDD (degenerative disc disease), lumbar: Qualifiers: Disc-related pain type: discogenic back pain only Qualified Code(s): M51.360 - Other intervertebral disc degeneration, lumbar region with discogenic back pain only (3) Chronic prescription opiate use: (4) Muscle spasm: (5) Spondylolysis, thoracic region: (6) Lumbar stenosis with neurogenic claudication: (7) Chronic pain of both knees: Plan continues to report pain relief and functional ability from current medication regimen, cannot afford interventional therapy or advanced imaging continue percocet 5-325mg TID PRN moderate to severe pain 70 tabs/month, continues to report functional improvement. restart mobic 15mg daily. denies side effects from medication regimen f/u 3 months, sooner if needed
== END 2025-08-24 07:51 | disposition home or self-care (01) ==
LOC: PM 07:50
PROVIDERS: PCP Family Medicine; Visit Provider Nurse Practitioner
DX: M47.816 Spondylosis without myelopathy or radiculopathy, lumbar region (principal); M51.360 Other intervertebral disc degeneration, lumbar region with discogenic back pain only; Z79.891 Long term (current) use of opiate analgesic; M62.838 Other muscle spasm; M43.04 Spondylolysis, thoracic region; M48.062 Spinal stenosis, lumbar region with neurogenic claudication; M25.561 Pain in right knee; M25.562 Pain in left knee
CPT/HCPCS: G0463